=== PATIENT | female | born 1945 | race Asian ===

== ENCOUNTER 2018-05-06 14:59 | Inpatient (IN) | payer OTHER ==
--- NOTE | 2018-05-06 15:49 | PDOC ---
History of Present Illness - General Chief Complaint: Cold Symptoms Stated Complaint: FEVER Time Seen by Provider: 05/06/18 15:32 History Source: Patient Exam Limitations: No Limitations - History of Present Illness Timing/Duration: unsure Associated Symptoms: reports: cough, loss of appetite, malaise. denies: chest pain, diaphoresis, fever/chills, headaches, nausea/vomiting, shortness of breath Past History - Travel Traveled outside of the country in the last 30 days: No Close contact w/someone who was outside of country & ill: No - Past Medical History Allergies/Adverse Reactions: Allergies Allergy/AdvReac Type Severity Reaction Status Date / Time sesame seed Allergy Unknown Rash Verified 05/06/18 15:12 Home Medications: Ambulatory Orders Amlodipine Besylate 5 mg PO DAILY 02/26/16 Aspirin [ASA -] 81 mg PO DAILY 02/26/16 Metoprolol Succinate [Toprol XL -] 25 mg PO DAILY 02/26/16 Telmisartan [Micardis] 40 mg PO ASDIR 05/06/18 Anemia: No Asthma: No Cancer: No Cardiac Disorders: No CVA: No COPD: No CHF: No Dementia: No Diabetes: No GI Disorders: No Disorders: No HTN: Yes Hypercholesterolemia: No Liver Disease: No Seizures: No Thyroid Disease: No - Surgical History Abdominal Surgery: No Appendectomy: No Cardiac Surgery: No Cholecystectomy: No Lung Surgery: No Neurologic Surgery: No Orthopedic Surgery: No - Suicide/Smoking/Psychosocial Hx Smoking History: Never smoked Have you smoked in the past 12 months: No Information on smoking cessation initiated: No Hx Alcohol Use: No Drug/Substance Use Hx: No Substance Use Type: None Hx Substance Use Treatment: No Review of Systems - Review of Systems Constitutional: Yes: Chills, Fever HEENTM: Yes: Nose Congestion, Throat Pain. No: Throat Swelling Respiratory: Yes: Cough. No: Orthopnea, Shortness of Breath, Productive cough Cardiac (ROS): No: Chest Pain, Lightheadedness, Palpitations ABD/GI: No: Abdominal Distended, Abd. Pain w/ defecation, Difficulty Swallowing Musculoskeletal: No: Back Pain, Gout, Joint Pain Integumentary: No: Bruising Neurological: Yes: Weakness. No: Headache, Numbness, Paresthesia, Ataxia, Dizziness Psychiatric: No: Stressors, Mood Swings Endocrine: No: Excessive Sweating, Flushing *Physical Exam - Vital Signs Last Vital Signs Temp Pulse Resp BP Pulse Ox 101.5 F H 100 H 16 121/84 100 05/06/18 15:10 05/06/18 15:10 05/06/18 15:10 05/06/18 15:10 05/06/18 15:10 - Physical Exam General Appearance: Yes: Other (appear weak) Neck: positive: Supple Respiratory/Chest: positive: Lungs Clear, Normal Breath Sounds Cardiovascular: positive: Regular Rhythm, Regular Rate, S1, S2 Gastrointestinal/Abdominal: positive: Normal Bowel Sounds, Soft Musculoskeletal: positive: Normal Inspection Extremity: positive: Normal Capillary Refill, Normal Inspection Integumentary: positive: Normal Color Neurologic: positive: sales contract administrator II-XII NML intact, Fully Oriented, Alert Medical Decision Making - Medical Decision Making 05/06/18 15:47 Patient is a 72 years old female with history of hypertension hyperlipidemia and diabetes she presents today with cough, chills sore throat and fatigue 3 days. Patient denies any chest pain shortness of breath abdominal pain or any UTI symptoms. Vital signs is stable in the emergency room rapid strep sent urine and urine urinalysis and chest x-ray will be obtained dispo pending 05/06/18 17:36 Patient is febrile in the ER given Tylenol and ibuprofen chest x-ray wet reading looks negative UA with chloride and cocaine. Patient later re-examined patient appears very weak upon ambulation UA test discussed with pt, she later admitted that she was sent by PCP for admission d/t continous fever and + UA she has been on cipro X 3 days with continous fever case signout to HENNA Alvarenga RN notified that pt needs to go to the main ED basic labs sent 05/06/18 17:40 *DC/Admit/Observation/Transfer Diagnosis at time of Disposition: Fatigue Qualifiers: Fatigue type: unspecified Qualified Code(s): R53.83 - Other fatigue - Referrals Referrals: Debbi Dunne MD [Primary Care Provider] - - Patient Instructions - Post Discharge Activity
[2018-05-06 16:20] LABS: URINE APPEARANCE CLEAR; URINE BILIRUBIN NEGATIVE (<2.0 mg/dL); URINE COLOR YELLOW; URINE GLUCOSE (UA) 1+ (NEGATIVE); URINE KETONE NEGATIVE (NEGATIVE); URINE LEUK ESTERASE NEGATIVE (NEGATIVE); URINE NITRITE NEGATIVE (NEGATIVE); URINE UROBILINOGEN NEGATIVE mg/dL (0.2-1.0)
[2018-05-06 16:28] LABS: URINE PROTEIN 1+ (NEGATIVE)
[2018-05-06 16:30] LABS: EPI CELLS RARE /HPF (FEW)
[2018-05-06] MEDS ORDERED: ACETAMINOPHEN 325 MG TABLET (FP) PO ONE (17:27)
[2018-05-06] MEDS ORDERED: IBUPROFEN 600 MG TABLET (FP) PO ONE ×2 (17:27→17:30)
[2018-05-06] MEDS ORDERED: ACETAMINOPHEN 325 MG TABLET (FP) ONE (17:32)
[2018-05-06 17:58] LABS: HEMATOCRIT 32.8 % (32.4-45.2); HEMOGLOBIN 11.6 GM/dL (10.7-15.3); MCH 29.4 pg (25.7-33.7); MCHC 35.4 g/dl (32.0-36.0); RBC 3.95 M/mm3 (3.60-5.2); RDW 15.1 % (11.6-15.6); WHITE BLOOD COUNT 4.3 K/mm3 (4.0-10.0)
[2018-05-06 18:28] LABS: ANION GAP 8 MMOL/L (8-16); BLOOD UREA NITROGEN 11 mg/dL (7-18); CALCIUM 7.5 mg/dL (8.5-10.1); CHLORIDE 91 mmol/L (98-107); CO2 26 mmol/L (21-32); CREATININE 0.8 mg/dL (0.55-1.02); GLUCOSE,RANDOM 135 mg/dL (74-106); POTASSIUM 3.9 mmol/L (3.5-5.1); SODIUM 125 mmol/L (136-145)
--- NOTE | 2018-05-06 18:32 | PDOC ---
History of Present Illness - General Chief Complaint: Cold Symptoms Stated Complaint: FEVER Time Seen by Provider: 05/06/18 15:32 History Source: Patient Exam Limitations: No Limitations - History of Present Illness Initial Comments: CHIEF COMPLAINT: 72 y/o febrile, tachycardic female c/o fever, weakness, sore throat and decreased appetite for 4 days. HISTORY OF PRESENT ILLNESS: Patient was seen by Dr. Bains 2 days ago and started on Cipro for a UTI. Patient states she still hasn't been able to eat and feels weak. She denies cough, runny nose, CARLIN, n/v/d, CP, SOB, abd pain, back pain. She has been taking tylenol for the fever with last dose this morning. PCP is Dr. Bains Vital signs on arrival are notable for pulse of 100 secondary to temp of 101.5. REVIEW OF SYSTEMS: GENERAL/CONSTITUTIONAL: +fever. +weakness HEAD, EYES, EARS, NOSE AND THROAT: +sore throat. No change in vision. No ear pain or discharge. CARDIOVASCULAR: No chest pain or shortness of breath. RESPIRATORY: No cough, wheezing, or hemoptysis. GASTROINTESTINAL: No abd pain, nausea, vomiting, diarrhea. GENITOURINARY: No dysuria, frequency, or change in urination. MUSCULOSKELETAL: No joint or muscle swelling or pain. No neck or back pain. SKIN: No rash or easy bruising. NEUROLOGIC: No headache, vertigo, loss of consciousness, or loss of sensation. PHYSICAL EXAM: GENERAL: The patient is awake, alert, and fully oriented, in no acute distress. HEAD: Normal with no signs of trauma. ENT: Pupils equal, round and reactive to light, extraocular movements intact, sclera anicteric, conjunctiva clear. Dry, cracked lips. Mildly dry mucous membranes. LUNGS: Clear to auscultation bilaterally. Normal excursion. No respiratory distress or use of accessory muscles. CV: RRR, S1/S2, no MRG. Cap refill < 2 sec. ABDOMEN: Soft, non-distended, non-tender even to deep palpation, no hepatomegaly or splenomegaly, no masses. EXTREMITIES: Normal range of motion, no edema. NEUROLOGICAL: Normal speech, normal gait. CN II-XII grossly intact. SKIN: Warm, dry, normal turgor, no rashes or lesions noted. Past History - Past Medical History Allergies/Adverse Reactions: Allergies Allergy/AdvReac Type Severity Reaction Status Date / Time sesame seed Allergy Unknown Rash Verified 05/06/18 15:12 Home Medications: Ambulatory Orders Amlodipine Besylate 5 mg PO DAILY 02/26/16 Aspirin [ASA -] 81 mg PO DAILY 02/26/16 Metoprolol Succinate [Toprol XL -] 25 mg PO DAILY 02/26/16 Telmisartan [Micardis] 40 mg PO ASDIR 05/06/18 Anemia: No Asthma: No Cancer: No Cardiac Disorders: No CVA: No COPD: No CHF: No Dementia: No Diabetes: No GI Disorders: No Disorders: No HTN: Yes Hypercholesterolemia: No Liver Disease: No Seizures: No Thyroid Disease: No - Surgical History Abdominal Surgery: No Appendectomy: No Cardiac Surgery: No Cholecystectomy: No Lung Surgery: No Neurologic Surgery: No Orthopedic Surgery: No - Suicide/Smoking/Psychosocial Hx Smoking History: Never smoked Have you smoked in the past 12 months: No Information on smoking cessation initiated: No Hx Alcohol Use: No Drug/Substance Use Hx: No Substance Use Type: None Hx Substance Use Treatment: No *Physical Exam - Vital Signs Last Vital Signs Temp Pulse Resp BP Pulse Ox 101.5 F H 100 H 16 121/84 100 05/06/18 15:10 05/06/18 15:10 05/06/18 15:10 05/06/18 15:10 05/06/18 15:10 ED Treatment Course - LABORATORY CBC & Chemistry Diagram: 05/06/18 17:45 05/06/18 17:45 - ADDITIONAL ORDERS Additional order review: Laboratory Results 05/06/18 15:50 Urine Color Yellow Urine Appearance Clear Urine pH 5.0 Ur Specific [place] 1.011 Urine Protein 1+ H Urine Glucose (UA) 1+ H Urine Ketones Negative Urine Blood 2+ H Urine Nitrite Negative Urine Bilirubin Negative Urine Urobilinogen Negative Ur Leukocyte Esterase Negative Urine WBC (Auto) 2 Urine RBC (Auto) 2 Ur Epithelial Cells Rare 05/06/18 15:46 Group A Strep Rapid Antigen - Final Throat 05/06/18 17:45 RBC 3.95 MCV 83.0 MCHC 35.4 RDW 15.1 - Medications Given in the ED: ED Medications Discontinued Medications Generic Name Dose Route Start Last Admin Trade Name Freq PRN Reason Stop Dose Admin Acetaminophen 650 mg 05/06/18 17:27 05/06/18 17:33 Tylenol - PO 05/06/18 17:28 650 mg ONCE ONE Administration Ibuprofen 600 mg 05/06/18 17:27 05/06/18 17:33 Motrin - PO 05/06/18 17:28 600 mg ONCE ONE Administration Medical Decision Making - Medical Decision Making A/P: 72 y/o febrile female with weakness, fever, decreased appetite x 4 days, despite starting CIpro for a UTI 2 days ago. Plan is as follows: 1. Labs 2. UA/culture 3. Blood cultures 4. CXR 5. Throat culture 6. PO tylenol and motrin Throat culture -negative CXR IMPRESSION: (wet read) No change since prior. Patient is hyponatremic. Started on NS. Otherwise labs ok. UA no UTI. Spoke with Dr. Bains and discussed plan. She would like her admitted for hyponatremia, UTI, weakness, poor appetite. Wants 1st dose of IV levaquin. Patient made aware of plan. *DC/Admit/Observation/Transfer Diagnosis at time of Disposition: Hyponatremia, Weakness, Poor appetite Fatigue Qualifiers: Fatigue type: unspecified Qualified Code(s): R53.83 - Other fatigue UTI (urinary tract infection) Qualifiers: Urinary tract infection type: acute cystitis Hematuria presence: with hematuria Qualified Code(s): N30.01 - Acute cystitis with hematuria - Discharge Dispostion Condition at time of disposition: Stable Decision to Admit order: Yes - Referrals Referrals: Debbi Dunne MD [Primary Care Provider] - - Patient Instructions - Post Discharge Activity
[2018-05-06 18:43] LABS: PLATELET COUNT 81 K/MM3 (134-434)
[2018-05-06] MEDS ORDERED: SODIUM CHLORIDE 1,000 ML IV STA (18:43)
[2018-05-06 21:58] LABS: ALBUMIN 2.9 g/dl (3.4-5.0); BILIRUBIN,DIRECT 0.4 mg/dL (0.0-0.2); BILIRUBIN,TOTAL 1.2 mg/dL (0.2-1.0); TOT PROT 7.5 g/dl (6.4-8.2)
[2018-05-06] MEDS: SODIUM CHLORIDE 1,000 ML IV SCH (23:53)
[2018-05-07] MEDS: metFORMIN HCL 500 MG TABLET (FP) PO SCH (06:34)
[2018-05-07 07:02] LABS: MCH 28.6 pg (25.7-33.7); MCHC 34.4 g/dl (32.0-36.0); MEAN CELL VOLUME 82.9 fl (80-96); MEAN PLT VOLUME 9.3 fl (7.5-11.1); PLATELET COUNT 69 K/MM3 (134-434); WHITE BLOOD COUNT 3.9 K/mm3 (4.0-10.0)
[2018-05-07 07:37] LABS: ALBUMIN 2.4 g/dl (3.4-5.0); ANION GAP 11 MMOL/L (8-16); BLOOD UREA NITROGEN 9 mg/dL (7-18); CALCIUM 7.1 mg/dL (8.5-10.1); CHLORIDE 100 mmol/L (98-107); CO2 21 mmol/L (21-32); GLUCOSE,RANDOM 153 mg/dL (74-106); POTASSIUM 3.1 mmol/L (3.5-5.1); SGOT/AST 67 U/L (15-37); SGPT/ALT 65 U/L (12-78); SODIUM 132 mmol/L (136-145)
[2018-05-07 07:40] LABS: ALK PHOS 59 U/L (45-117); BILIRUBIN,TOTAL 1.1 mg/dL (0.2-1.0); CREATININE 0.4 mg/dL (0.55-1.02)
[2018-05-07] MEDS: amLODIPine BESYLATE 5 MG TABLET (FP) PO SCH (09:33)
[2018-05-07] MEDS: VALSARTAN 160 MG TABLET (UD) PO SCH (09:33)
[2018-05-07] MEDS: HYDROCHLOROTHIAZIDE 12.5 MG CAPSULE (FP) PO SCH (09:33)
[2018-05-07] MEDS ORDERED: POTASSIUM CHLORIDE TABS 20 MEQ TABLET.ER (FP) PO ONE (10:38)
[2018-05-07] MEDS: SODIUM CHLORIDE 1,000 ML IV SCH (11:40)
--- NOTE | 2018-05-07 12:20 | PN ---
Progress Note, Physician Chief Complaint: Pt lying in bed,Afebrile No vomiting,tiredness present Hypokalemia hyponatremia improved Elevated LFT,low Platelet Gi consul - Current Medication List Current Medications: Active Medications Acetaminophen (Tylenol -) 650 mg PO Q6H PRN PRN Reason: FEVER Amlodipine Besylate (Norvasc -) 5 mg PO DAILY [facility] Last Admin: 05/07/18 09:33 Dose: 5 mg Atorvastatin Calcium (Lipitor -) 10 mg PO HS [facility] Calcium Carbonate (Os-Jah 500mg -) 500 mg PO DAILY [facility] Hydrochlorothiazide (Hctz -) 12.5 mg PO DAILY [facility] Last Admin: 05/07/18 09:33 Dose: 12.5 mg Sodium Chloride (Normal Saline -) 1,000 mls @ 75 mls/hr IV ASDIR [facility] Last Admin: 05/07/18 11:40 Dose: 75 mls/hr Metformin HCl (Glucophage -) 500 mg PO 0700 [facility] Last Admin: 05/07/18 06:34 Dose: 500 mg Metoprolol Tartrate (Lopressor -) 50 mg PO HS [facility] Valsartan (Diovan -) 160 mg PO DAILY [facility] Last Admin: 05/07/18 09:33 Dose: 160 mg - Objective Vital Signs: Vital Signs Temperature 99.3 F 05/07/18 09:30 Pulse Rate 105 H 05/07/18 09:30 Respiratory Rate 18 05/07/18 09:30 Blood Pressure 145/69 05/07/18 09:30 O2 Sat by Pulse Oximetry (%) 99 05/07/18 01:20 Constitutional: Yes: No Distress Eyes: Yes: Conjunctiva Clear HENT: Yes: Atraumatic Neck: Yes: Supple, Trachea Midline Cardiovascular: Yes: Regular Rate and Rhythm Respiratory: Yes: Regular, CTA Bilaterally Gastrointestinal: Yes: Normal Bowel Sounds, Soft Musculoskeletal: Yes: WNL Extremities: Yes: WNL Edema: No Peripheral Pulses WNL: No Neurological: Yes: WNL ...Motor Strength: WNL Psychiatric: Yes: WNL Labs: CBC, BMP 05/07/18 06:30 05/07/18 06:30 - ....Imaging Chest X-ray: Report Reviewed Assessment/Plan UTI POOR appetite, and po intake Elevated LFT,low platelet Fatigue, generalised weakness PLAN Continue IV antibiotics GI consult Continue Metformin,metoprolol and amlodipine K suppliment and Calcium suppliment will monitor labs
--- NOTE | 2018-05-07 12:53 | HP ---
DATE OF DICTATION: 05/07/2018 The patient is a 72-year-old female with a history of hypertension, hyperlipidemia, diabetes, presented to the emergency room with a history of persistent fever, lack of appetite, poor p.o. intake, mild lower abdominal pain. Patient was seen in the office with a history of generalized weakness, fatigue, poor p.o. intake, and mild fever, mild sore throat. The poor p.o. intake and fatigue started almost 2 weeks ago and patient feels tired. Patient had blood work and urine culture done as an outpatient for a regular checkup. It found the patient had hyponatremia and potassium was 3.2 and urine was positive for infection and started on Cipro 500 mg p.o. b.i.d. Even after taking the antibiotics, patient was spiking fever, she cannot tolerate the fluid, and patient has lack of appetite, generalized body aches, tiredness, so came to the emergency room for further evaluation. Past medical history is significant for hypertension, diabetes, hyperlipidemia. Patient is allergic to SESAME SEED. MEDICATION: Amlodipine besylate 5 mg daily, aspirin, metoprolol succinate, Toprol XL 25 mg daily, Micardis 40 mg p.o. daily, and metformin 500 mg p.o. b.i.d. Patient lives with the family. PAST MEDICAL HISTORY: As mentioned before. PERSONAL HISTORY: Patient never smoked, no alcohol, no drugs. REVIEW OF SYSTEMS: Constitutional: Patient had chills and fever, generalized weakness, fatigue, poor p.o. intake. Head and Neck: Nasal congestion. No pharyngeal erythema. Respiratory: Patient complains of cough. No orthopnea. No shortness of breath. Productive cough present. Cardiovascular: No chest pain, lightheadedness, or palpitation. History of hypertension present. Gastrointestinal: Patient had poor p.o. intake, poor appetite. No constipation, no diarrhea. Genitourinary: Mild lower abdomen pain. No burning sensation. Musculoskeletal: No back pain or joint pain. Neurological: No motor or sensory deficit. No gait disturbance. No dizziness. Endocrine: Patient is known diabetic. PHYSICAL EXAMINATION IN EMERGENCY ROOM: Vital Signs: Temperature was 101.5, pulse rate 100, respiration 16, blood pressure 121/84, pulse oximetry 100%. General: Patient appears weak. Neck: Supple. No JVD. Mild erythema. Chest: Normal breath sound. No rhonchi or wheezing. Cardiovascular: 1st and 2nd sound normal. Abdomen: Soft. No tenderness, no distention. Bowel sounds present. No mass palpable. Musculoskeletal: Full range of movement. Extremities: No edema. Full range of movement. Skin: Normal. Neurological: Patient alert, oriented x3. Cranial nerves 2-12 normal. No apparent motor or sensory deficit. Regarding the labs, in the emergency room, WBC 4.3, hemoglobin 11.6, hematocrit 32.6, platelets 281. Chemistry: Sodium 125, potassium 3.9, chloride 91, bicarbonate 26, BUN 11, creatinine 0.8, glucose 135, calcium 7.5, total bilirubin 1.2, AST 86, ALT 82, alkaline phosphatase 72, albumin 2.9. Urine shows protein 1+, glucose 1+, ketones negative, urine blood 2+, RBC 2, WBC 2. Microbiology: Blood culture pending. Throat culture negative for beta-hemolytic streptococcus. Influenza type A and B negative. Urine culture pending. Chest x-ray negative. Patient was given IV fluid, Motrin and Tylenol in the emergency room, and IV Levaquin started as per patient was not responding to the p.o. antibiotics. Patient admitted in the floor with admitting diagnosis of urinary tract infection, poor p.o. intake, generalized weakness, hyponatremia, and fever. PLAN: Levaquin 500 mg IV daily, continue the home medications, blood culture. Will monitor the potassium and sodium. GI consult to further evaluate the liver enzymes and poor p.o. intake and lack of appetite. IV fluids. Will closely monitor the electrolytes. Patient is stable on the floor. Moira [id number]
[2018-05-07] MEDS: PANTOPRAZOLE 20 MG TABLET (FP) PO SCH (15:32)
--- NOTE | 2018-05-07 20:51 | CON.GI ---
Consult Consult Specialty:: Gastroenterology Referred by:: Dr Dunne Reason for Consultation:: Abnormal LFTs - History of Present Illness Chief Complaint: Unable to eat, nausea, epigastric pain, cough and sore throat History of Present Illness: 72F is admitted because of an inablity to eat for the past few days due to nausea and a dull mild epigastric discomfort. No vomiting. No diarrhea. She has been constipated. She reminds me that she had a colonoscopy with me 5 years ado which revealed only diverticulosis. 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 - History Source History Provided By: Patient Limitations to Obtaining History: No Limitations - Past Medical History Cardio/Vascular: Yes: HTN, Hyperlipdemia, Mitral Insufficiency, Pulmonary Hypertension Gastrointestinal: Yes: Diverticulosis Endocrine: Yes: Diabetes Mellitus - Past Surgical History Past Surgical History: Yes: Cataract Removal (bilateral), - Alcohol/Substance Use Hx Alcohol Use: No History of Substance Use: reports: None - Smoking History Smoking history: Never smoked Have you smoked in the past 12 months: No - Social History Usual Living Arrangement: With Spouse ADL: Independent Occupation: retired RN Place of : Other ([employer]) Came to [place] (year): age 34 History of Recent Travel: No Home Medications - Allergies Allergies/Adverse Reactions: Allergies Allergy/AdvReac Type Severity Reaction Status Date / Time sesame seed Allergy Unknown Rash Verified 05/06/18 15:12 - Home Medications Home Medications: Ambulatory Orders Amlodipine Besylate 5 mg PO DAILY 02/26/16 Aspirin [ASA -] 81 mg PO DAILY 02/26/16 Metoprolol Succinate [Toprol XL -] 25 mg PO DAILY 02/26/16 Telmisartan [Micardis] 40 mg PO ASDIR 05/06/18 Review of Systems - Review of Systems Constitutional: reports: Fever, Loss of Appetite, Weakness Eyes: reports: No Symptoms HENT: reports: Nasal Congestion, Throat Pain Respiratory: reports: Cough Gastrointestinal: reports: Abdominal Pain, Constipation, Nausea Genitourinary: reports: No Symptoms Physical Exam-GI Vital Signs: Vital Signs Temperature 99.4 F 05/07/18 18:00 Pulse Rate 124 H 05/07/18 18:00 Respiratory Rate 19 05/07/18 18:00 Blood Pressure 151/85 05/07/18 18:00 O2 Sat by Pulse Oximetry (%) 98 05/07/18 09:00 CBC,CMP WBC 3.9 K/mm3 (4.0-10.0) L 05/07/18 06:30 RBC 3.50 M/mm3 (3.60-5.2) L 05/07/18 06:30 Hgb 10.0 GM/dL (10.7-15.3) L 05/07/18 06:30 Hct 29.0 % (32.4-45.2) L 05/07/18 06:30 MCV 82.9 fl (80-96) 05/07/18 06:30 MCH 28.6 pg (25.7-33.7) 05/07/18 06:30 MCHC 34.4 g/dl (32.0-36.0) 05/07/18 06:30 RDW 15.0 % (11.6-15.6) 05/07/18 06:30 Plt Count 69 K/MM3 (134-434) L 05/07/18 06:30 MPV 9.3 fl (7.5-11.1) 05/07/18 06:30 Platelet Comment 05/06/18 17:45 Sodium 132 mmol/L (136-145) L 05/07/18 06:30 Potassium 3.1 mmol/L (3.5-5.1) L 05/07/18 06:30 Chloride 100 mmol/L (98-107) 05/07/18 06:30 Carbon Dioxide 21 mmol/L (21-32) 05/07/18 06:30 Anion Gap 11 MMOL/L (8-16) 05/07/18 06:30 BUN 9 mg/dL (7-18) 05/07/18 06:30 Creatinine 0.4 mg/dL (0.55-1.02) L 05/07/18 06:30 Creat Clearance w eGFR > 60 (>60) 05/07/18 06:30 POC Glucometer 169 UNITS (80-120) 05/07/18 06:29 Random Glucose 153 mg/dL (74-106) H 05/07/18 06:30 Calcium 7.1 mg/dL (8.5-10.1) L 05/07/18 06:30 Total Bilirubin 1.1 mg/dL (0.2-1.0) H 05/07/18 06:30 Direct Bilirubin 0.4 mg/dL (0.0-0.2) H 05/06/18 21:30 AST 67 U/L (15-37) H 05/07/18 06:30 ALT 65 U/L (12-78) 05/07/18 06:30 Alkaline Phosphatase 59 U/L (45-117) D 05/07/18 06:30 Total Protein 6.0 g/dl (6.4-8.2) L 05/07/18 06:30 Albumin 2.4 g/dl (3.4-5.0) L 05/07/18 06:30 Current Medications Generic Name Dose Route Start Last Admin Trade Name Freq PRN Reason Stop Dose Admin Acetaminophen 650 mg 05/06/18 23:39 Tylenol - PO Q6H PRN FEVER Amlodipine Besylate 5 mg 05/07/18 10:00 05/07/18 09:33 Norvasc - PO 5 mg DAILY [facility] Administration Atorvastatin Calcium 10 mg 05/07/18 22:00 Lipitor - PO HS [facility] Calcium Carbonate 500 mg 05/08/18 10:00 Os-Jah 500mg - PO DAILY [facility] Hydrochlorothiazide 12.5 mg 05/07/18 10:00 05/07/18 09:33 Hctz - PO 12.5 mg DAILY [facility] Administration Sodium Chloride 1,000 mls @ 75 mls/hr 05/06/18 23:45 05/07/18 11:40 Normal Saline - IV 75 mls/hr ASDIR [facility] Administration Levofloxacin 500 mg in 100 mls @ 100 mls/hr 05/07/18 12:45 05/07/18 13:33 Levaquin 500 Mg Premixed Ivpb - IVPB 100 mls/hr DAILY [facility] Administration Metformin HCl 500 mg 05/07/18 07:00 05/07/18 06:34 Glucophage - PO 500 mg 0700 [facility] Administration Metoprolol Tartrate 50 mg 05/07/18 22:00 Lopressor - PO HS [facility] Pantoprazole Sodium 20 mg 05/07/18 15:30 05/07/18 15:32 Protonix - PO Not Given DAILY [facility] Valsartan 160 mg 05/07/18 10:00 05/07/18 09:33 Diovan - PO 160 mg DAILY [facility] Administration Constitutional: Yes: No Distress Eyes: Yes: Conjunctiva Clear HENT: Yes: Atraumatic Neck: Yes: Trachea Midline Cardiovascular: Yes: Regular Rate and Rhythm Respiratory: Yes: CTA Bilaterally Gastrointestinal Inspection: Yes: Scars (healed [place]) ...Auscultate: Yes: Normoactive Bowel Sounds ...Palpate: Yes: Soft, Other (nontender) ...Percussion: Yes: Tympanitic ...Rectal Exam: Yes: Deferred Edema: No Peripheral Pulses WNL: Yes Neurological: Yes: Alert, Oriented Labs: CBC, BMP 05/07/18 06:30 05/07/18 06:30 Laboratory Tests 05/06/18 05/07/18 21:30 06:30 Direct Bilirubin 0.4 H AST 86 H 67 H ALT 82 H 65 Alkaline Phosphatase 59 D Albumin 2.4 L Problem List - Problems (1) Abnormal LFTs (liver function tests) Assessment/Plan: I suspect that the mild transaminase elevations reflect a nonspecific reaction to an underlying viral URI or perhaps UTI but will order a sonogram and screeen for primary liver diseases. Code(s): R94.5 - ABNORMAL RESULTS OF LIVER FUNCTION STUDIES (2) Abdominal pain Assessment/Plan: I suspect that her dyspepsia and nausea with inability to eat reflect a component of diabetic gastroparesis and will start Reglan. This could alternatively be gastroparesis that is associated with viral infections. She' ll need IV support in the interim. Code(s): R10.9 - UNSPECIFIED ABDOMINAL PAIN (3) Diverticula of colon Code(s): K57.30 - DVRTCLOS OF LG INT W/O PERFORATION OR ABSCESS W/O BLEEDING (4) Diabetes 1.5, managed as type 2 Code(s): E10.9 - TYPE 1 DIABETES MELLITUS WITHOUT COMPLICATIONS (5) Hypertension Code(s): I10 - ESSENTIAL (PRIMARY) HYPERTENSION (6) Hyperlipidemia associated with type 2 diabetes mellitus Code(s): E11.69 - TYPE 2 DIABETES MELLITUS WITH OTHER SPECIFIED COMPLICATION; E78.5 - HYPERLIPIDEMIA, UNSPECIFIED (7) Nausea Code(s): R11.0 - NAUSEA (8) Poor appetite Code(s): R63.0 - ANOREXIA Assessment/Plan Poor oral intake due to diabetic or viral induced gastroparesis IV Reglan and fluids Liver and GB sonogram and other liver evaluations
[2018-05-07] MEDS: METOPROLOL TARTRATE 50 MG TABLET (FP) PO SCH (22:08)
[2018-05-07] MEDS: ATORVASTATIN CA 10 MG TABLET (FP) PO SCH (22:08)
[2018-05-08] MEDS: SODIUM CHLORIDE 1,000 ML IV SCH ×2 (02:24→19:27)
[2018-05-08 08:22] LABS: BASO % 1.1 % (0-2.0); EOS % 0.3 % (0-4.5); HEMATOCRIT 28.9 % (32.4-45.2); LYMPH % 24.4 % (8-40); MCH 28.5 pg (25.7-33.7); MCHC 34.5 g/dl (32.0-36.0); MEAN CELL VOLUME 82.5 fl (80-96); MEAN PLT VOLUME 8.7 fl (7.5-11.1); MONO % 25.8 % (3.8-10.2); NEUT % 48.4 % (42.8-82.8); PLATELET COUNT 77 K/MM3 (134-434); RBC 3.51 M/mm3 (3.60-5.2); RDW 15.1 % (11.6-15.6); WHITE BLOOD COUNT 4.5 K/mm3 (4.0-10.0)
[2018-05-08 08:32] LABS: INR 1.36 (0.83-1.09); PROTHROMBIN TIME (PATIENT) 15.4 SEC (9.7-13.0)
[2018-05-08 08:44] LABS: ALBUMIN 2.3 g/dl (3.4-5.0); ANION GAP 10 MMOL/L (8-16); BLOOD UREA NITROGEN 9 mg/dL (7-18); CHLORIDE 93 mmol/L (98-107); CO2 24 mmol/L (21-32); CREATININE 0.6 mg/dL (0.55-1.02); GLUCOSE,RANDOM 113 mg/dL (74-106); MAGNESIUM 1.5 mg/dL (1.8-2.4); POTASSIUM 3.7 mmol/L (3.5-5.1); SGOT/AST 70 U/L (15-37); SGPT/ALT 56 U/L (12-78); SODIUM 127 mmol/L (136-145)
[2018-05-08 08:46] LABS: ALK PHOS 64 U/L (45-117); BILIRUBIN,TOTAL 1.3 mg/dL (0.2-1.0); TOT PROT 6.4 g/dl (6.4-8.2)
--- NOTE | 2018-05-08 09:46 | PN ---
Progress Note, Physician Chief Complaint: Pt lying in bed,Afebrile No vomiting,tiredness present hyponatremia improving Elevated LFT,low Platelet Gi consul appreciated Abdominal ultrasound no gall stones,mild fatty liver - Current Medication List Current Medications: Active Medications Acetaminophen (Tylenol -) 650 mg PO Q6H PRN PRN Reason: FEVER Amlodipine Besylate (Norvasc -) 5 mg PO DAILY [facility] Last Admin: 05/07/18 09:33 Dose: 5 mg Atorvastatin Calcium (Lipitor -) 10 mg PO HS [facility] Last Admin: 05/07/18 22:08 Dose: 10 mg Calcium Carbonate (Os-Jah 500mg -) 500 mg PO DAILY [facility] Hydrochlorothiazide (Hctz -) 12.5 mg PO DAILY [facility] Last Admin: 05/07/18 09:33 Dose: 12.5 mg Sodium Chloride (Normal Saline -) 1,000 mls @ 75 mls/hr IV ASDIR [facility] Last Admin: 05/08/18 02:24 Dose: 75 mls/hr Levofloxacin (Levaquin 500 Mg Premixed Ivpb -) 500 mg in 100 mls @ 100 mls/hr IVPB DAILY [facility] Last Admin: 05/07/18 13:33 Dose: 100 mls/hr Metformin HCl (Glucophage -) 500 mg PO 0700 [facility] Last Admin: 05/07/18 06:34 Dose: 500 mg Metoclopramide HCl (Reglan Injection -) 10 mg IVPUSH Q8H PRN PRN Reason: NAUSEA AND/OR VOMITING Metoprolol Tartrate (Lopressor -) 50 mg PO [facility] Last Admin: 05/07/18 22:08 Dose: 50 mg Pantoprazole Sodium (Protonix -) 20 mg PO DAILY [facility] Last Admin: 05/07/18 15:32 Dose: Not Given Valsartan (Diovan -) 160 mg PO DAILY [facility] Last Admin: 05/07/18 09:33 Dose: 160 mg - Objective Vital Signs: Vital Signs Temperature 99.8 F H 05/08/18 06:00 Pulse Rate 97 H 05/08/18 06:00 Respiratory Rate 20 05/08/18 06:00 Blood Pressure 125/66 05/08/18 06:00 O2 Sat by Pulse Oximetry (%) 98 05/07/18 21:00 Constitutional: Yes: No Distress Eyes: Yes: Conjunctiva Clear HENT: Yes: Atraumatic Neck: Yes: Supple, Trachea Midline Cardiovascular: Yes: Regular Rate and Rhythm Respiratory: Yes: Regular, CTA Bilaterally Gastrointestinal: Yes: Normal Bowel Sounds, Soft Musculoskeletal: Yes: WNL Extremities: Yes: WNL Edema: No Peripheral Pulses WNL: Yes Neurological: Yes: WNL, Alert, Oriented ...Motor Strength: WNL Psychiatric: Yes: WNL, Alert Labs: CBC, BMP 05/08/18 08:00 05/08/18 08:00 INR, PTT INR 1.36 (0.83-1.09) H 05/08/18 08:00 - ....Imaging Ultrasound: Report Reviewed EKG: Report Reviewed Assessment/Plan UTI POOR appetite, and po intake Elevated LFT,low platelet Fatigue, generalised weakness gastroparesis PLAN Continue IV antibiotics GI f/u Continue Metformin,metoprolol and amlodipine Calcium, mg suppliment will monitor labs
[2018-05-08] MEDS: ACETAMINOPHEN 325 MG TABLET (FP) PO PRN (09:47)
[2018-05-08] MEDS: VALSARTAN 160 MG TABLET (UD) PO SCH (09:47)
[2018-05-08] MEDS: PANTOPRAZOLE 20 MG TABLET (FP) PO SCH (09:47)
[2018-05-08] MEDS: amLODIPine BESYLATE 5 MG TABLET (FP) PO SCH (09:47)
[2018-05-08] MEDS: CALCIUM (OYSTER SHELL) 500 MG TABLET (FP) PO SCH (09:47)
[2018-05-08] MEDS: metFORMIN HCL 500 MG TABLET (FP) PO SCH (10:00)
[2018-05-08] MEDS ORDERED: MAGNESIUM OXIDE 400 MG TABLET (FP) PO ONE (10:00)
[2018-05-08] MEDS ORDERED: PANTOPRAZOLE 20 MG TABLET (FP) PO SCH (10:00)
[2018-05-08] MEDS: HYDROCHLOROTHIAZIDE 12.5 MG CAPSULE (FP) PO SCH (10:01)
--- NOTE | 2018-05-08 10:32 | EKG ---
Test Reason : Blood Pressure : / mmHG Vent. Rate : 105 BPM Atrial Rate : 105 BPM P-R Int : 132 ms QRS Dur : 064 ms QT Int : 318 ms P-R-T Axes : 043 040 027 degrees QTc Int : 420 ms SINUS TACHYCARDIA OTHERWISE NORMAL ECG WHEN COMPARED WITH ECG OF 09-APR-2006 15:36, VENT. RATE HAS INCREASED BY 50 BPM Confirmed by ADIS GALLEGO MD ([id number]) on 05/08/2018 10:32:04 AM Referred By: Radha CR Confirmed By:ADIS GALLEGO MD
[2018-05-08 11:59] LABS: ANISOCYTOSIS 1+; MACROCYTOSIS 0; PLATELET ESTIMATE DECREASED
--- NOTE | 2018-05-08 12:39 | CON.CARD ---
Consult Consult Specialty:: Cardiology Referred by:: Debbi Dunne MD Reason for Consultation:: Labile hypertension - History of Present Illness Chief Complaint: Anorexia, nausea, heartburn History of Present Illness: 72F h/o chest pain syndrome with MPI negative for ischemia, diastolic dysfunction, labile HTN, Type 2 DM, hyperlipidemia admitted for anorexia, nausea and dull mild epigastric discomfort without vomiting, diarrhea, chest pain, near or true syncope, palpitations, orthopnea, PND or LE edema. She has been constipated. Tolerating diet with improved heartburn symptoms. Last saw Dr. Ho February 04, 2017. - History Source History Provided By: Patient Limitations to Obtaining History: No Limitations - Past Medical History Cardio/Vascular: Yes: HTN, Hyperlipdemia, Mitral Insufficiency, Pulmonary Hypertension Gastrointestinal: Yes: Diverticulosis Endocrine: Yes: Diabetes Mellitus - Past Surgical History Past Surgical History: Yes: Cataract Removal (bilateral), - Alcohol/Substance Use Hx Alcohol Use: No History of Substance Use: reports: None - Smoking History Smoking history: Never smoked Have you smoked in the past 12 months: No - Social History Usual Living Arrangement: With Spouse ADL: Independent Occupation: retired RN History of Recent Travel: No Home Medications - Allergies Allergies/Adverse Reactions: Allergies Allergy/AdvReac Type Severity Reaction Status Date / Time sesame seed Allergy Unknown Rash Verified 05/06/18 15:12 - Home Medications Home Medications: Ambulatory Orders Amlodipine Besylate 5 mg PO DAILY 02/26/16 Aspirin [ASA -] 81 mg PO DAILY 02/26/16 Metoprolol Succinate [Toprol XL -] 25 mg PO DAILY 02/26/16 Telmisartan [Micardis] 40 mg PO ASDIR 05/06/18 Review of Systems - Review of Systems Constitutional: reports: Loss of Appetite Gastrointestinal: reports: Abdominal Pain Vital Signs: Vital Signs Temperature 101.7 F H 05/08/18 09:33 Pulse Rate 98 H 05/08/18 09:33 Respiratory Rate 20 05/08/18 09:33 Blood Pressure 133/55 05/08/18 09:33 O2 Sat by Pulse Oximetry (%) 98 05/07/18 21:00 Constitutional: Yes: No Distress, Calm Neck: Yes: Supple Respiratory: Yes: Regular, CTA Bilaterally Gastrointestinal: Yes: Soft, Hypoactive Bowel Sounds Cardiovascular: Yes: Regular Rate and Rhythm JVD: No Carotid Bruit: No Heart Sounds: Yes: S1, S2 Murmur: Yes: Systolic Murmur, Grade 1 Edema: No - Other Data Labs, Other Data: CBC, BMP 05/08/18 08:00 05/08/18 08:00 INR, PTT INR 1.36 (0.83-1.09) H 05/08/18 08:00 Ejection Fraction %: LVEF > or = 40 % Imaging - Results Chest X-ray: Report Reviewed (NAD) Ultrasound: Report Reviewed (Abd U/S: Fatty infiltration, no gallstones) Problem List - Problems (1) Diastolic dysfunction Code(s): I51.9 - HEART DISEASE, UNSPECIFIED (2) Abnormal LFTs (liver function tests) Code(s): R94.5 - ABNORMAL RESULTS OF LIVER FUNCTION STUDIES (3) Fatigue Code(s): R53.83 - OTHER FATIGUE Qualifiers: Fatigue type: unspecified Qualified Code(s): R53.83 - Other fatigue (4) Hyperlipidemia associated with type 2 diabetes mellitus Code(s): E11.69 - TYPE 2 DIABETES MELLITUS WITH OTHER SPECIFIED COMPLICATION; E78.5 - HYPERLIPIDEMIA, UNSPECIFIED (5) Hypertension Code(s): I10 - ESSENTIAL (PRIMARY) HYPERTENSION Qualifiers: Hypertension type: essential hypertension Qualified Code(s): I10 - Essential (primary) hypertension (6) Poor appetite Code(s): R63.0 - ANOREXIA (7) UTI (urinary tract infection) Code(s): N39.0 - URINARY TRACT INFECTION, SITE NOT SPECIFIED Qualifiers: Urinary tract infection type: acute cystitis Hematuria presence: with hematuria Qualified Code(s): N30.01 - Acute cystitis with hematuria (8) Diabetic gastroparesis Code(s): E11.43 - TYPE 2 DIABETES W DIABETIC AUTONOMIC (POLY)NEUROPATHY; K31.84 - GASTROPARESIS Assessment/Plan MPI December 28, 2016 Mild inferoapical ischemia, LVEF 83% Echo December 28, 2016 Normal LV size and fxn, mild-mod MR, mild TR Holter December 28, 2017: SR with rare supraventricular and ventricular ectopic 1. Dyspepsia and nausea referable to diabetic vs viral gastroparesis 2. UTI 3. Labile HTN 4. Diastolic dysfunction 5. Type 2 DM 6. Hyperlipidemia 7. H/o chest pain syndrome P:1. Complete empiric abx course 2. Placed on Reglan and Protonix with improvement 3. Continue Toprol XL 25 qd, Norvasc 5 qd, Lipitor 10 qd, ASA 81 qd, valsartan 160 qd 4. Thank you for consultative opportunity
[2018-05-08] MEDS: METOCLOPRAMIDE HCL INJECTION 10 MG/2 ML VIAL IVPUSH PRN (17:27)
--- NOTE | 2018-05-08 19:15 | PN ---
GI Progress Note Subjective: GI NOte: Was eating lunch when I saw her earlier today. Told me that she was feeling better. I told her that he sonogram revealed a fatty liver but no masses or stones. Ferritin is elevated but could be acute phase reaction as CRP is also elevated. The other studies are still pending. - Objective Vital Signs: Vital Signs Temperature 98.5 F 05/08/18 19:03 Pulse Rate 139 H 05/08/18 19:03 Respiratory Rate 24 05/08/18 19:03 Blood Pressure 140/80 05/08/18 19:03 O2 Sat by Pulse Oximetry (%) 98 05/07/18 21:00 Laboratory Tests 05/06/18 05/07/18 05/08/18 21:30 06:30 08:00 Ferritin Total Bilirubin 1.2 H 1.1 H 1.3 H AST 70 H ALT 82 H 65 56 Alkaline Phosphatase 72 59 D 64 C-Reactive Protein 05/08/18 08:00 Ferritin 1488.0 H Total Bilirubin AST ALT Alkaline Phosphatase C-Reactive Protein 7.8 H Constitutional: Calm ...Auscultate: Yes: Normoactive Bowel Sounds ...Palpate: Yes: Soft, Other (nontender) Labs: CBC, BMP 05/08/18 08:00 05/08/18 08:00 INR, PTT INR 1.36 (0.83-1.09) H 05/08/18 08:00 Problem List - Problems (1) Abnormal LFTs (liver function tests) Assessment/Plan: These mild transaminase elevations may reflect reflect a DILI ( drug induced liver injury). will follow trend Code(s): R94.5 - ABNORMAL RESULTS OF LIVER FUNCTION STUDIES (2) Abdominal pain Assessment/Plan: Responding to Reglan supporting diabetic or viral gastroparesis Code(s): R10.9 - UNSPECIFIED ABDOMINAL PAIN (3) Diverticula of colon Code(s): K57.30 - DVRTCLOS OF LG INT W/O PERFORATION OR ABSCESS W/O BLEEDING (4) Diabetes 1.5, managed as type 2 Code(s): E10.9 - TYPE 1 DIABETES MELLITUS WITHOUT COMPLICATIONS (5) Hypertension Code(s): I10 - ESSENTIAL (PRIMARY) HYPERTENSION Qualifiers: Hypertension type: essential hypertension Qualified Code(s): I10 - Essential (primary) hypertension (6) Hyperlipidemia associated with type 2 diabetes mellitus Code(s): E11.69 - TYPE 2 DIABETES MELLITUS WITH OTHER SPECIFIED COMPLICATION; E78.5 - HYPERLIPIDEMIA, UNSPECIFIED (7) Nausea Code(s): R11.0 - NAUSEA (8) Poor appetite Code(s): R63.0 - ANOREXIA
[2018-05-08] MEDS: METOPROLOL TARTRATE 50 MG TABLET (FP) PO SCH ×2 (19:19→21:54)
[2018-05-08] MEDS: ATORVASTATIN CA 10 MG TABLET (FP) PO SCH (21:54)
[2018-05-09] MEDS: ACETAMINOPHEN 325 MG TABLET (FP) PO PRN (00:59)
[2018-05-09] MEDS: SODIUM CHLORIDE 1,000 ML IV SCH ×4 (03:29→23:52)
[2018-05-09 06:10] LABS: SERUM IRON SATURATION 20 % (15-55); TOTAL IRON BINDING CAPACITY 191 ug/dL (250-450); UIBC 153 ug/dL (118-369)
[2018-05-09] MEDS: metFORMIN HCL 500 MG TABLET (FP) PO SCH (06:47)
[2018-05-09 07:46] LABS: BASO % 0.3 % (0-2.0); EOS % 0.5 % (0-4.5); HEMATOCRIT 30.6 % (32.4-45.2); HEMOGLOBIN 10.3 GM/dL (10.7-15.3); LYMPH % 20.2 % (8-40); MCH 27.9 pg (25.7-33.7); MCHC 33.7 g/dl (32.0-36.0); MEAN CELL VOLUME 82.9 fl (80-96); MEAN PLT VOLUME 8.6 fl (7.5-11.1); MONO % 22.8 % (3.8-10.2); NEUT % 56.2 % (42.8-82.8); PLATELET COUNT 66 K/MM3 (134-434); RBC 3.69 M/mm3 (3.60-5.2); RDW 15.5 % (11.6-15.6); WHITE BLOOD COUNT 4.3 K/mm3 (4.0-10.0)
[2018-05-09 08:02] LABS: CHLORIDE 96 mmol/L (98-107); POTASSIUM 3.2 mmol/L (3.5-5.1); SODIUM 129 mmol/L (136-145)
[2018-05-09 08:17] LABS: ALBUMIN 2.3 g/dl (3.4-5.0); ALK PHOS 73 U/L (45-117); ANION GAP 9 MMOL/L (8-16); BILIRUBIN,TOTAL 1.2 mg/dL (0.2-1.0); BLOOD UREA NITROGEN 9 mg/dL (7-18); CALCIUM 7.7 mg/dL (8.5-10.1); CO2 24 mmol/L (21-32); CREATININE 0.7 mg/dL (0.55-1.02); GLUCOSE,RANDOM 123 mg/dL (74-106); MAGNESIUM 1.7 mg/dL (1.8-2.4); SGOT/AST 109 U/L (15-37); SGPT/ALT 77 U/L (12-78); TOT PROT 6.4 g/dl (6.4-8.2)
[2018-05-09] MEDS: METOCLOPRAMIDE HCL INJECTION 10 MG/2 ML VIAL IVPUSH PRN (09:25)
--- NOTE | 2018-05-09 09:47 | PN ---
Progress Note, Physician Chief Complaint: Pt lying in bed,Afebrile now,T max 102.9 No vomiting,tiredness present Hypokalemia hyponatremia improvement Elevated LFT,low Platelet Gi f/u blood cul and urine cul negative c/o dark stoolx2 stool guiac ordered - Current Medication List Current Medications: Active Medications Acetaminophen (Tylenol -) 650 mg PO Q6H PRN PRN Reason: FEVER Last Admin: 05/09/18 00:59 Dose: 650 mg Amlodipine Besylate (Norvasc -) 5 mg PO DAILY [facility] Last Admin: 05/08/18 09:47 Dose: 5 mg Atorvastatin Calcium (Lipitor -) 10 mg PO HS [facility] Last Admin: 05/08/18 21:54 Dose: 10 mg Calcium Carbonate (Os-Jah 500mg -) 500 mg PO DAILY [facility] Last Admin: 05/08/18 09:47 Dose: 500 mg Hydrochlorothiazide (Hctz -) 12.5 mg PO DAILY [facility] Last Admin: 05/08/18 10:01 Dose: 12.5 mg Sodium Chloride (Normal Saline -) 1,000 mls @ 75 mls/hr IV ASDIR [facility] Last Admin: 05/09/18 06:47 Dose: 75 mls/hr Levofloxacin (Levaquin 500 Mg Premixed Ivpb -) 500 mg in 100 mls @ 100 mls/hr IVPB DAILY [facility] Last Admin: 05/08/18 09:48 Dose: 100 mls/hr Metformin HCl (Glucophage -) 500 mg PO 0700 [facility] Last Admin: 05/09/18 06:47 Dose: 500 mg Metoclopramide HCl (Reglan Injection -) 10 mg IVPUSH Q8H PRN PRN Reason: NAUSEA AND/OR VOMITING Last Admin: 05/09/18 09:25 Dose: 10 mg Metoprolol Tartrate (Lopressor -) 50 mg PO HS [facility] Last Admin: 05/08/18 21:54 Dose: Not Given Pantoprazole Sodium (Protonix -) 20 mg PO DAILY [facility] Last Admin: 05/08/18 09:47 Dose: 20 mg Valsartan (Diovan -) 160 mg PO DAILY [facility] Last Admin: 05/08/18 09:47 Dose: 160 mg - Objective Vital Signs: Vital Signs Temperature 98.2 F 05/09/18 09:01 Pulse Rate 117 H 05/09/18 09:01 Respiratory Rate 24 05/09/18 09:01 Blood Pressure 150/79 05/09/18 09:01 O2 Sat by Pulse Oximetry (%) 98 05/08/18 21:00 Constitutional: Yes: No Distress Eyes: Yes: Conjunctiva Clear HENT: Yes: Atraumatic Neck: Yes: Supple, Trachea Midline Cardiovascular: Yes: Regular Rate and Rhythm, Tachycardia Respiratory: Yes: Regular, CTA Bilaterally Gastrointestinal: Yes: Normal Bowel Sounds, Soft Musculoskeletal: Yes: WNL Extremities: Yes: WNL Edema: No Peripheral Pulses WNL: Yes Neurological: Yes: WNL, Alert ...Motor Strength: WNL Psychiatric: Yes: WNL Labs: CBC, BMP 05/09/18 07:00 05/09/18 07:00 INR, PTT INR 1.36 (0.83-1.09) H 05/08/18 08:00 - ....Imaging Ultrasound: Report Reviewed Assessment/Plan UTI hypokalemia,hyponatremia POOR appetite, and po intake Elevated LFT,low platelet Fatigue, generalised weakness PLAN Continue IV antibiotics GI consult Continue Metformin,metoprolol and amlodipine K suppliment and Calcium suppliment will monitor labs endocrine ,hematology,ID consult stool guiac testing
[2018-05-09] MEDS ORDERED: MAGNESIUM OXIDE 400 MG TABLET (FP) PO ONE (10:00)
[2018-05-09 10:07] LABS: ANISOCYTOSIS 1+; MACROCYTOSIS 1+; OVALOCYTE 1+; PLATELET ESTIMATE DECREASED; TARGET CELLS 1+
--- NOTE | 2018-05-09 10:12 | CONSULT ---
Consultation: REQUESTING PROVIDER: CONSULT REQUEST: We have been asked to medically evaluate this patient for ( thrombocytopenia). HISTORY OF PRESENT ILLNESS: Patient is a 72 year old female, new patient to [facility], was sent by her PCP ( Dr.Sarojini Dunne) for evaluation of weakness and low appetite. As per the patient, she was apparently well until 2 weeks ago then she started having generalized weakness and low appetite. She had some blood work and UA done 2 days ago at her PCP's office, was found to have UTI and was given PO Ciprofloxacin. Her weakness, excessive tiredness and nausea progressively got worse hence was sent to the ED for further evaluation and treatment. Denies chest pain, sob, cough, palpitation, abdominal pain, headache, numbness, tingling, or any focal neurological deficit. Has noticed for the past few weeks, she has decreased Bowel movement. Last bowel movement was yesterday and it was dark in color, no BRB. Colonoscopy was done about 5 yrs ago, had diverticulosis and was told she needs it to be done every 5 yrs. Hasn't done EGD before. Bladder habit normal. Sleep-disturbed. Last Mammo done 2 yrs ago. Overnight, had a temp of 102.9. PAST MEDICAL HISTORY: Hyperlipidemia, DM, UTI, Labile HTN; Diastolic dysfunction ; History of chest pain syndrome, Diverticulosis ALLERGIES: Sesame Seed PAST SURGICAL HISTORY: 1 c-sec FAMILY HISTORY: Both parents-DM, no family h/o cancer SOCIAL HISTORY: Smoking: Denies Alcohol: Denies Drugs: Denies OCCUPATION: Retired Nurse. REVIEW OF SYSTEMS: CONSTITUTIONAL: Present: generalized weakness, malaise Absent: fever, chills, diaphoresis, loss of appetite, weight change HEENT: Absent: rhinorrhea, nasal congestion, throat pain, throat swelling, difficulty swallowing, mouth swelling, ear pain, eye pain, visual changes CARDIOVASCULAR: Absent: chest pain, syncope, palpitations, irregular heart rate, lightheadedness , peripheral edema RESPIRATORY: Absent: cough, shortness of breath, dyspnea with exertion, orthopnea, wheezing, stridor, hemoptysis GASTROINTESTINAL: Absent: abdominal pain, abdominal distension, nausea, vomiting, diarrhea, constipation, melena, hematochezia GENITOURINARY: Absent: dysuria, frequency, urgency, hesitancy, hematuria, flank pain, genital pain MUSCULOSKELETAL: Absent: myalgia, arthralgia, joint swelling, back pain, neck pain SKIN: Absent: rash, itching, pallor HEMATOLOGIC/IMMUNOLOGIC: Absent: easy bleeding, easy bruising, lymphadenopathy, frequent infections ENDOCRINE: Absent: unexplained weight gain, unexplained weight loss, heat intolerance, cold intolerance NEUROLOGIC: Absent: headache, focal weakness or paresthesias, dizziness, unsteady gait, seizure, mental status changes, bladder or bowel incontinence PSYCHIATRIC: Absent: anxiety, depression, suicidal or homicidal ideation, hallucinations. PHYSICAL EXAMINATION Vital Signs - 24 hr 05/08/18 05/08/18 05/08/18 10:30 14:18 18:10 Temperature 98.1 F 99.1 F Pulse Rate 98 H 117 H Respiratory 16 24 Rate Blood Pressure 119/62 113/74 O2 Sat by Pulse 98 Oximetry (%) 05/08/18 05/08/18 05/08/18 18:52 19:03 19:14 Temperature 99.4 F 98.5 F 98.1 F Pulse Rate 112 H 139 H 135 H Respiratory 22 24 24 Rate Blood Pressure 150/77 140/80 145/80 O2 Sat by Pulse Oximetry (%) 05/08/18 05/08/18 05/08/18 19:31 19:48 21:00 Temperature 99 F Pulse Rate 127 H 120 H Respiratory 24 24 20 Rate Blood Pressure 132/72 129/77 O2 Sat by Pulse 98 Oximetry (%) 05/08/18 05/09/18 05/09/18 22:00 01:30 02:10 Temperature 98.7 F 102.9 F H 101.1 F H Pulse Rate 96 H 116 H Respiratory 20 20 Rate Blood Pressure 137/72 129/62 O2 Sat by Pulse Oximetry (%) 05/09/18 05/09/18 06:00 09:01 Temperature 98.4 F 98.2 F Pulse Rate 87 117 H Respiratory 20 24 Rate Blood Pressure 133/73 150/79 O2 Sat by Pulse Oximetry (%) GENERAL: Elderly female, sitting comfortably in bed, looks tired, Awake, alert, and fully oriented, in no acute distress. HEAD: Normal with no signs of trauma. EYES: EOM intact, pallor +, no icterus. EARS, NOSE, THROAT: Ears normal. Dry mucous membranes. NECK: Supple. BREAST EXAM: Normal, no nodules palpated AXILLA: No axillary lymph nodes palpated. LUNGS: B/L Breath sounds equal, clear to auscultation bilaterally. No wheezes, and no crackles. No accessory muscle use. HEART: Tachycardic, Regular rate and rhythm, normal S1 and S2 with soft systolic murmur. ABDOMEN: Soft, nontender, no organomegaly. MUSCULOSKELETAL: Normal range of motion at all joints. No bony deformities or tenderness. No CVA tenderness. UPPER EXTREMITIES: 2+ pulses, warm, well-perfused. No cyanosis. No clubbing. Cap refill <2 seconds. No peripheral edema. LOWER EXTREMITIES: Pigmentation below the knee, 2+ pulses, warm, well-perfused. No calf tenderness. No peripheral edema. NEUROLOGICAL: No facial droop, Power 5/5 in all extremities, sensation intact, Cranial nerves II-XII intact. Normal speech. Gait not observed. PSYCHIATRIC: Cooperative. Good eye contact. Appropriate mood and affect. SKIN: Warm, dry, normal turgor, no rashes or lesions noted. Laboratory Results - last 24 hr 05/08/18 05/08/18 05/08/18 08:00 08:00 09:44 WBC RBC Hgb Hct MCV MCH MCHC RDW Plt Count MPV Absolute Neuts (auto) Neutrophils % Neutrophils % (Manual) 47.5 Band Neutrophils % 7.0 Lymphocytes % Lymphocytes % (Manual) 27.3 Monocytes % Monocytes % (Manual) 17 H Eosinophils % Eosinophils % (Manual) 0.0 Basophils % Basophils % (Manual) 0.0 Myelocytes % (Man) 0 Promyelocytes % (Man) 0 Blast Cells % (Manual) 0 Nucleated RBC % Metamyelocytes 0 Hypochromia 1+ Platelet Estimate Decreased Polychromasia 0 Poikilocytosis 0 Anisocytosis 1+ Microcytosis 1+ Macrocytosis 0 Sodium Potassium Chloride Carbon Dioxide Anion Gap BUN Creatinine Creat Clearance w eGFR POC Glucometer 134 Random Glucose Calcium Magnesium Iron 38 TIBC 191 L Iron Saturation 20 Total Bilirubin AST ALT Alkaline Phosphatase Total Protein Albumin Hep C Ab Diagnostic <0.1 Liver Fibrosis Interp 05/08/18 05/08/18 05/08/18 12:14 16:58 21:05 WBC RBC Hgb Hct MCV MCH MCHC RDW Plt Count MPV Absolute Neuts (auto) Neutrophils % Neutrophils % (Manual) Band Neutrophils % Lymphocytes % Lymphocytes % (Manual) Monocytes % Monocytes % (Manual) Eosinophils % Eosinophils % (Manual) Basophils % Basophils % (Manual) Myelocytes % (Man) Promyelocytes % (Man) Blast Cells % (Manual) Nucleated RBC % Metamyelocytes Hypochromia Platelet Estimate Polychromasia Poikilocytosis Anisocytosis Microcytosis Macrocytosis Sodium Potassium Chloride Carbon Dioxide Anion Gap BUN Creatinine Creat Clearance w eGFR POC Glucometer 159 128 200 Random Glucose Calcium Magnesium Iron TIBC Iron Saturation Total Bilirubin AST ALT Alkaline Phosphatase Total Protein Albumin Hep C Ab Diagnostic Liver Fibrosis Interp 05/09/18 05/09/18 05/09/18 06:31 07:00 07:00 WBC 4.3 RBC 3.69 Hgb 10.3 L Hct 30.6 L MCV 82.9 MCH 27.9 MCHC 33.7 RDW 15.5 Plt Count 66 L MPV 8.6 Absolute Neuts (auto) 2.4 Neutrophils % 56.2 Neutrophils % (Manual) Band Neutrophils % Lymphocytes % 20.2 Lymphocytes % (Manual) Monocytes % 22.8 H Monocytes % (Manual) Eosinophils % 0.5 Eosinophils % (Manual) Basophils % 0.3 Basophils % (Manual) Myelocytes % (Man) Promyelocytes % (Man) Blast Cells % (Manual) Nucleated RBC % 0 Metamyelocytes Hypochromia Platelet Estimate Polychromasia Poikilocytosis Anisocytosis Microcytosis Macrocytosis Sodium 129 L Potassium 3.2 L Chloride 96 L Carbon Dioxide 24 Anion Gap 9 BUN 9 Creatinine 0.7 Creat Clearance w eGFR > 60 POC Glucometer 114 Random Glucose 123 H Calcium 7.7 L Magnesium 1.7 L Iron TIBC Iron Saturation Total Bilirubin 1.2 H AST 109 H ALT 77 Alkaline Phosphatase 73 Total Protein 6.4 Albumin 2.3 L Hep C Ab Diagnostic Liver Fibrosis Interp Active Medications Generic Name Dose Route Start Last Admin Trade Name Freq PRN Reason Stop Dose Admin Acetaminophen 650 mg 05/06/18 23:39 05/09/18 00:59 Tylenol - PO 650 mg Q6H PRN Administration FEVER Amlodipine Besylate 5 mg 05/07/18 10:00 05/08/18 09:47 Norvasc - PO 5 mg DAILY KAMILAH Administration Atorvastatin Calcium 10 mg 05/07/18 22:00 05/08/18 21:54 Lipitor - PO 10 mg HS KAMILAH Administration Calcium Carbonate 500 mg 05/08/18 10:00 05/08/18 09:47 Os-Jah 500mg - PO 500 mg DAILY KAMILAH Administration Hydrochlorothiazide 12.5 mg 05/07/18 10:00 05/08/18 10:01 Hctz - PO 12.5 mg DAILY KAMILAH Administration Sodium Chloride 1,000 mls @ 75 mls/hr 05/06/18 23:45 05/09/18 06:47 Normal Saline - IV 75 mls/hr ASDIR KAMILAH Administration Levofloxacin 500 mg in 100 mls @ 100 mls/hr 05/07/18 12:45 05/08/18 09:48 Levaquin 500 Mg Premixed Ivpb - IVPB 100 mls/hr DAILY KAMILAH Administration Metformin HCl 500 mg 05/07/18 07:00 05/09/18 06:47 Glucophage - PO 500 mg 0700 KAMILAH Administration Metoclopramide HCl 10 mg 05/07/18 21:02 05/09/18 09:25 Reglan Injection - IVPUSH 10 mg Q8H PRN Administration NAUSEA AND/OR VOMITING Metoprolol Tartrate 50 mg 05/07/18 22:00 05/08/18 21:54 Lopressor - PO Not Given HS KAMILAH Pantoprazole Sodium 20 mg 05/07/18 15:30 05/08/18 09:47 Protonix - PO 20 mg DAILY KAMILAH Administration Potassium Chloride 40 meq 05/09/18 10:15 K-Dur - PO 05/09/18 10:16 ONCE ONE Valsartan 160 mg 05/07/18 10:00 05/08/18 09:47 Diovan - PO 160 mg DAILY KAMILAH Administration Patient is a 72 year old female, new patient to [facility], with past medical history of Hyperlipidemia, DM, UTI, Labile HTN; Diastolic dysfunction; History of chest pain syndrome, Diverticulosis was sent by her PCP (Dr. Werner) for evaluation of weakness and low appetite. ASSESSMENT UTI- currently on IV Levofloxacin, Urine cultures neg, Blood cultures neg. Tmax 102.6 F Decreased BM- Likely secondary to gastroparesis: currently on Reglan and protonix with symptomatic relief Electrolye imbalance: Hyponatremia, hypokalemia, Hypomagnesemia likely secondary to poor oral intake vs HCTZ use. Thrombocytopenia Normocytic anemia Labile Hypertension Hyperlipidemia DM- A1c done 2 weeks ago was 6.5 as per the patient. Diastolic dysfunction H/o Chest pain syndrome- No active chest pain PLAN: # Thrombocytopenia-Unknown if it is acute or chronic Platelet count 77 on admission---> today its 66. Likely secondary to infection vs antibiotic use vs liver disease. # Normocytic anemia H/H 10.3/30.6, no signs of active bleed. Patient states she noticed black colored stool yesterday. Stool for occult blood ordered. Ferritin high questionable reactive, questionable related to liver disease. normal iron, TIBC is low compatible with chronic illness ? liver disease ? other # Reverse A/G ratio-r/o dysproteinemia or possible polyclonal gammopathy secondary to underlying liver disease. Will send UPEP, IPEP, SPEP, quantitative immunoglobulins. # Monocytosis COuld be due to liver disease or infectious-viral or malignant. Will observe and consider flow cytometry. Will need to review peripheral smear. # Corrected reticulocyte is 1.6 which is normal. Rest as per primary. Plan of care discussed with the patient and her . They verbalized understanding. Case discussed with Dr. Castellanos. Dispo: We will continue to follow the patient. Thank you for this consultative opportunity. Visit type - Emergency Visit Emergency Visit: Yes ED Registration Date: 05/06/18 Care time: The patient presented to the Emergency Department on the above date and was hospitalized for further evaluation of their emergent condition. - New Patient This patient is new to me today: Yes Date on this admission: 05/05/18 - Critical Care Critical Care patient: No
[2018-05-09] MEDS ORDERED: POTASSIUM CHLORIDE TABS 20 MEQ TABLET.ER (FP) PO ONE (10:15)
[2018-05-09 10:17] LABS: TRANSGLUTAMINASE IGA 2 U/mL (0-3); TRANSGLUTAMINASE IGG 7 U/mL (0-5)
[2018-05-09] MEDS: amLODIPine BESYLATE 5 MG TABLET (FP) PO SCH (10:41)
[2018-05-09] MEDS: HYDROCHLOROTHIAZIDE 12.5 MG CAPSULE (FP) PO SCH (10:41)
[2018-05-09] MEDS: PANTOPRAZOLE 20 MG TABLET (FP) PO SCH (10:41)
[2018-05-09] MEDS: CALCIUM (OYSTER SHELL) 500 MG TABLET (FP) PO SCH (10:41)
[2018-05-09] MEDS: VALSARTAN 160 MG TABLET (UD) PO SCH (10:41)
--- NOTE | 2018-05-09 10:59 | PN ---
Progress Note, Physician Chief Complaint: Events noted Denies chest pain or SOB History of Present Illness: Patient was seen and examined. Awake and alert. Chart was reviewed Denies chest pain, SOB or palpitations, but complains of increased heart rate - Current Medication List Current Medications: Active Medications Acetaminophen (Tylenol -) 650 mg PO Q6H PRN PRN Reason: FEVER Last Admin: 05/09/18 00:59 Dose: 650 mg Amlodipine Besylate (Norvasc -) 5 mg PO DAILY [facility] Last Admin: 05/09/18 10:41 Dose: 5 mg Atorvastatin Calcium (Lipitor -) 10 mg PO HS [facility] Last Admin: 05/08/18 21:54 Dose: 10 mg Calcium Carbonate (Os-Jah 500mg -) 500 mg PO DAILY [facility] Last Admin: 05/09/18 10:41 Dose: 500 mg Hydrochlorothiazide (Hctz -) 12.5 mg PO DAILY [facility] Last Admin: 05/09/18 10:41 Dose: 12.5 mg Sodium Chloride (Normal Saline -) 1,000 mls @ 75 mls/hr IV ASDIR [facility] Last Admin: 05/09/18 06:47 Dose: 75 mls/hr Levofloxacin (Levaquin 500 Mg Premixed Ivpb -) 500 mg in 100 mls @ 100 mls/hr IVPB DAILY [facility] Last Admin: 05/09/18 10:42 Dose: 100 mls/hr Metformin HCl (Glucophage -) 500 mg PO 0700 [facility] Last Admin: 05/09/18 06:47 Dose: 500 mg Metoclopramide HCl (Reglan Injection -) 10 mg IVPUSH Q8H PRN PRN Reason: NAUSEA AND/OR VOMITING Last Admin: 05/09/18 09:25 Dose: 10 mg Metoprolol Tartrate (Lopressor -) 50 mg PO HS [facility] Last Admin: 05/08/18 21:54 Dose: Not Given Pantoprazole Sodium (Protonix -) 20 mg PO DAILY [facility] Last Admin: 05/09/18 10:41 Dose: 20 mg Valsartan (Diovan -) 160 mg PO DAILY [facility] Last Admin: 05/09/18 10:41 Dose: 160 mg - Objective Vital Signs: Vital Signs Temperature 99.1 F 05/09/18 10:35 Pulse Rate 117 H 05/09/18 10:35 Respiratory Rate 24 09/11/18 10:35 Blood Pressure 138/71 09/11/18 10:35 O2 Sat by Pulse Oximetry (%) 98 05/08/18 21:00 Neck: Yes: Supple Cardiovascular: Yes: Regular Rate and Rhythm, Tachycardia, Murmur (Soft SM), S1 , S2 Respiratory: Yes: CTA Bilaterally Gastrointestinal: Yes: Normal Bowel Sounds, Soft. No: Tenderness Edema: No Labs: CBC, BMP 05/09/18 07:00 05/09/18 07:00 INR, PTT INR 1.36 (0.83-1.09) H 05/08/18 08:00 Problem List - Problems (1) Hypercholesterolemia Code(s): E78.00 - PURE HYPERCHOLESTEROLEMIA, UNSPECIFIED (2) Abnormal LFTs (liver function tests) Code(s): R94.5 - ABNORMAL RESULTS OF LIVER FUNCTION STUDIES (3) Diabetic gastroparesis Code(s): E11.43 - TYPE 2 DIABETES W DIABETIC AUTONOMIC (POLY)NEUROPATHY; K31.84 - GASTROPARESIS (4) Diastolic dysfunction Code(s): I51.9 - HEART DISEASE, UNSPECIFIED (5) Hypertension Code(s): I10 - ESSENTIAL (PRIMARY) HYPERTENSION Qualifiers: Hypertension type: essential hypertension Qualified Code(s): I10 - Essential (primary) hypertension (6) Weakness Code(s): R53.1 - WEAKNESS Assessment/Plan 1. Dyspepsia and nausea with gastroperisis possibly due to DM 2. UTI 3. Labile HTN 4. Diastolic dysfunction 5. Type 2 DM 6. Hyperlipidemia 7. History of chest pain syndrome PLAN: 1. Complete empiric antibiotic course 2. Placed on Reglan and Protonix with improvement 3. Continue Toprol XL 25 qd, Norvasc 5 qd, Lipitor 10 qd, ASA 81 qd and Valsartan 160 qd Supportive care Further plans are to follow Rigoberto Davis MD
[2018-05-09] MEDS ORDERED: METOPROLOL TARTRATE 25 MG TABLET (FP) PO ONE (13:25)
--- NOTE | 2018-05-09 15:14 | CONSULT ---
Consult Consult Specialty:: Endocrinology Referred by:: Dr Mansfield Reason for Consultation:: Hyponatremia - History of Present Illness Chief Complaint: Fever , weakness History of Present Illness: This is a 72 y/o F with h/o chest pain syndrome, diastolic dysfunction, labile HTN, Type 2 DM, hyperlipidemia admitted for fever, weakness and sore throat. Pt denies any chest pain, palpitations, orthopnea, PND or leg edema. Pt recently treated with Cipro for UTI. Currently denies any urinary symptoms. Pt referred for evaluation of hyponatremia. Has been on HCTZ for few years. Denies any h/o leg edema or PND. Has been feeling sick for about a week and has been drinking water but not eating much. - History Source History Provided By: Patient, Medical Record - Past Medical History Cardio/Vascular: Yes: HTN, Hyperlipdemia, Mitral Insufficiency, Pulmonary Hypertension Gastrointestinal: Yes: Diverticulosis Endocrine: Yes: Diabetes Mellitus - Past Surgical History Past Surgical History: Yes: Cataract Removal (bilateral), - Alcohol/Substance Use Hx Alcohol Use: No History of Substance Use: reports: None - Smoking History Smoking history: Never smoked Have you smoked in the past 12 months: No - Social History Usual Living Arrangement: With Spouse ADL: Independent Occupation: retired RN History of Recent Travel: No Home Medications - Allergies Allergies/Adverse Reactions: Allergies Allergy/AdvReac Type Severity Reaction Status Date / Time sesame seed Allergy Unknown Rash Verified 05/06/18 15:12 - Home Medications Home Medications: Ambulatory Orders Amlodipine Besylate 5 mg PO DAILY 02/26/16 Aspirin [ASA -] 81 mg PO DAILY 02/26/16 Metoprolol Succinate [Toprol XL -] 25 mg PO DAILY 02/26/16 Telmisartan [Micardis] 40 mg PO ASDIR 05/06/18 Family Disease History - Family Disease History Other Family History: No family h/o DM Review of Systems - Review of Systems Constitutional: reports: Fever, Loss of Appetite, Malaise Eyes: reports: No Symptoms HENT: reports: No Symptoms Neck: reports: No Symptoms Cardiovascular: reports: No Symptoms Respiratory: reports: No Symptoms Gastrointestinal: reports: No Symptoms Genitourinary: reports: No Symptoms Musculoskeletal: reports: No Symptoms Neurological: reports: No Symptoms Endocrine: reports: No Symptoms Physical Exam Vital Signs: Vital Signs Temperature 99.1 F 05/09/18 13:37 Pulse Rate 131 H 05/09/18 13:37 Respiratory Rate 24 05/09/18 13:24 Blood Pressure 135/43 05/09/18 13:37 O2 Sat by Pulse Oximetry (%) 98 05/08/18 21:00 Constitutional: Yes: No Distress, Calm Eyes: Yes: Conjunctiva Clear, EOM Intact HENT: Yes: Atraumatic, Normocephalic Neck: Yes: Supple, Trachea Midline Cardiovascular: Yes: Regular Rate and Rhythm Respiratory: Yes: Regular, CTA Bilaterally Gastrointestinal: Yes: Normal Bowel Sounds, Soft Musculoskeletal: Yes: WNL Extremities: Yes: WNL Edema: No Neurological: Yes: Alert, Oriented Labs: CBC, BMP 05/09/18 07:00 05/09/18 07:00 Assessment/Plan AP; UTI T2DM Hypokalemia,Hyponatremia Elevated LFT, Thrombocytopenia Fatigue Will d/c HCTZ for now. Repeat electrolytes off HCTZ Hyponatremia/Hypokalemia/Hypomagnesemia compatible with HCTZ use Increase dose of antihypertensive medications if necessary to control blood pressure. Pt denies any h/o Edema or CAM
--- NOTE | 2018-05-09 16:04 | ECHO ---
Name: SEBASTIÁN THOMAS Exam:Adult Echocardiogram Study Date: 05/09/2018 02:42 PM Age: 72 yrs Reason For Study: SINUS TACHYCARDIA Height: 60 in Weight: 129 lb BSA: 1.5 m2 MMode/2D Measurements & Calculations IVSd: 0.84 cm Ao root diam: 2.4 cm LVIDd: 3.6 cm LA dimension: 3.5 cm LVIDs: 2.6 cm LVPWd: 0.81 cm EDV(Teich): 56.0 ml TAPSE: 2.1 cm ESV(Teich): 23.7 ml RV S Jake: 13.1 cm/sec Doppler Measurements & Calculations MV E max jake: 52.8 cm/sec Ao V2 max: 126.0 cm/sec MV A max jake: 112.0 cm/sec Ao max P.3 mmHg MV E/A: 0.47 LV V1 max P.0 mmHg TR max jake: 181.7 cm/sec LV V1 max: 122.9 cm/sec TR max P.3 mmHg Med Peak E' Jake: 3.5 cm/sec Med E/e': 15.2 Lat Peak E' Jake: 8.8 cm/sec Lat E/e': 6.0 Procedure The study was technically difficult with many images being suboptimal in quality. Left Ventricle The left ventricular cavity is small. The left ventricle is hyperdynamic. E/A reversal consistent wit h but not diagnostic of poor LV compliance. Right Ventricle The right ventricle is normal size. The right ventricle is hyperdynamic. Atria Normal left and right atrial size and function. Mitral Valve There is moderate mitral annular calcification. There is mild mitral regurgitation. Tricuspid Valve The tricuspid valve is not well visualized, but is grossly normal. There is trace tricuspid regurgita tion. There was insufficient TR detected to calculate RV systolic pressure. Aortic Valve There is moderate aortic valve thickening. Pulmonic Valve The pulmonic valve is not well visualized. Great Vessels The aortic root is normal size. Pericardium/Pleura There is no pericardial effusion. Interpretation Summary The study was technically difficult with many images being suboptimal in quality. The left ventricular cavity is small. The left ventricle is hyperdynamic. E/A reversal consistent with but not diagnostic of poor LV compliance The right ventricle is normal size. The right ventricle is hyperdynamic. Normal left and right atrial size and function. There is moderate aortic valve thickening. There is moderate mitral annular calcification. There is mild mitral regurgitation. MD Emily Ross 05/09/2018 04:03 PM
--- NOTE | 2018-05-09 17:15 | PN ---
Progress Note (short form) - Note Progress Note: ID consult dictated 72 year old female with NIDDM, HTN with 10 days of malaise, fever, lose of appetite, abnl lfts, Thrombocytopenia on further questioning, has not felt like eating since mid march fuo weight loss thrombocytopenia diff diagnosis includes viral illness- cmv, ebv, tick illness versus malignancy send serology for cmv and ebv send babesia pcr/smear anaplasma serology ehrlichia serology d/c levaquin start doxycycline haptoglobin retic count ldh ct scan abd/pelvis r/o malignancy d/w dr ferrer Problem List - Problems (1) Fever of unknown origin (FUO) Code(s): R50.9 - FEVER, UNSPECIFIED (2) Weight loss Code(s): R63.4 - ABNORMAL WEIGHT LOSS (3) Thrombocytopenia Code(s): D69.6 - THROMBOCYTOPENIA, UNSPECIFIED
--- NOTE | 2018-05-09 17:16 | EKG ---
Test Reason : Blood Pressure : / mmHG Vent. Rate : 122 BPM Atrial Rate : 122 BPM P-R Int : 128 ms QRS Dur : 064 ms QT Int : 306 ms P-R-T Axes : 037 026 032 degrees QTc Int : 436 ms SINUS TACHYCARDIA LOW VOLTAGE QRS BORDERLINE ECG Confirmed by MD MAYA, RACHEL ([id number]) on 05/09/2018 5:15:55 PM Referred By: Confirmed By:RACHEL TREJO MD
--- NOTE | 2018-05-09 17:49 | PN ---
GI Progress Note Subjective: GI Note: Eating poorly. Fevers to 102.9 noted. Has chills. No pains. Now has diarrhea. Dr Dunne tells me that office testing reveals that Fatmata is HCV and Hep A negative. I have expressed my concern to Fatmata her and Dr Miles that she may have an underlying malignancy and will order a CT scan of the chest,abdomen and pelvis. Hepatocellular carcinoma would account for fever and abnormal LFTs. I have also discussed the possible need for a liver biopsy. Cirrhosis with splenomegaly would account for thrombocytopenia. CT gi help to exclude cirrhosis and ascites. Will screen benjamin for pathogens given the diarrhea - Objective Vital Signs: Vital Signs Temperature 99.5 F 05/09/18 15:33 Pulse Rate 103 H 05/09/18 15:33 Respiratory Rate 24 05/09/18 15:33 Blood Pressure 135/70 05/09/18 15:33 O2 Sat by Pulse Oximetry (%) 97 05/09/18 10:35 Selected Entries 05/06/18 05/08/18 05/08/18 15:10 06:00 09:33 Temperature 101.5 F H 99.8 F H 101.7 F H 05/09/18 05/09/18 01:30 02:10 Temperature 102.9 F H 101.1 F H Laboratory Tests 05/08/18 05/09/18 05/09/18 08:00 07:00 07:00 Hgb 10.3 L Plt Count 66 L PT with INR 15.40 H Total Bilirubin 1.2 H AST 109 H ALT 77 Alkaline Phosphatase 73 Albumin 2.3 L Constitutional: Anxious Gastrointestinal Inspection: Yes: WNL ...Auscultate: Yes: Hypoactive Bowel Sounds ...Palpate: Yes: Soft, Other (nontender) ...Percussion: Yes: Tympanitic Labs: CBC, BMP 05/09/18 07:00 05/09/18 07:00 INR, PTT INR 1.36 (0.83-1.09) H 05/08/18 08:00 Assessment/Plan CT Scan chest, abdomen and pelvis to exclude malignancy and abscess Switch to oral Reglan AFP Problem List - Problems (1) Abnormal LFTs (liver function tests) Assessment/Plan: Dr Miles tells me that she has not treated Fatmata with Augmentin which is a common cause of DILI ( drug induced liver injury). Will order CT scan chest ,abdomen and pelvis,and AFP. Await HBV serologies. Code(s): R94.5 - ABNORMAL RESULTS OF LIVER FUNCTION STUDIES (2) Abdominal pain Code(s): R10.9 - UNSPECIFIED ABDOMINAL PAIN (3) Diverticula of colon Code(s): K57.30 - DVRTCLOS OF LG INT W/O PERFORATION OR ABSCESS W/O BLEEDING (4) Diabetes 1.5, managed as type 2 Code(s): E10.9 - TYPE 1 DIABETES MELLITUS WITHOUT COMPLICATIONS (5) Hypertension Code(s): I10 - ESSENTIAL (PRIMARY) HYPERTENSION Qualifiers: Hypertension type: essential hypertension Qualified Code(s): I10 - Essential (primary) hypertension (6) Hyperlipidemia associated with type 2 diabetes mellitus Code(s): E11.69 - TYPE 2 DIABETES MELLITUS WITH OTHER SPECIFIED COMPLICATION; E78.5 - HYPERLIPIDEMIA, UNSPECIFIED (7) Nausea Code(s): R11.0 - NAUSEA (8) Poor appetite Code(s): R63.0 - ANOREXIA
--- NOTE | 2018-05-09 18:00 | CONS ---
DATE OF CONSULTATION: DATE OF DICTATION: 05/09/2018 INFECTIOUS DISEASE CONSULTATION REQUESTING PHYSICIAN: Debbi Dunne M.D. CONSULTING PHYSICIAN: Milagros Leggett M.D. HISTORY OF PRESENT ILLNESS: This is a 72-year-old woman. She has been feeling sick and week for at least the last 7 to 10 days. She was admitted to the hospital on the with complaints of fatigue and fever at home. She has no appetite whatsoever. She has not been eating. She has no diarrhea. In fact, she was constipated at home. She denies any tick bites or mosquito bites. She denies to me any cough or sore throat, though to the emergency room she apparently reported sore throat and cough. She had been taking Tylenol at home for the fever. She had gone to see Dr. Dunne as an outpatient and had been started on Cipro 2 days prior to admission, so which would be on the , and she had a fever of 101 in the emergency room. She is completely awake and alert. Of note is the fact that she is thrombocytopenic. I spoke to Dr. Dunne who reports that on the when she saw her in the office, her platelets were 128,000 and in 2016 they were normal, which is the last set of labs she has. Patient recently traveled to [place]. She was there from April 12 to April 25. Essentially she stayed with family. In retrospect, she now reports during that trip that she really was not herself and did not have a good appetite. She was not eating well. She has no associated cough. She has no sore throat. She complains of just generalized weakness and body pain. PAST MEDICAL HISTORY: Notable for history of hypertension, hyperlipidemia, mitral insufficiency, pulmonary hypertension, diverticulosis and diabetes. SURGICAL HISTORY: Notable for and cataract removal. SOCIAL HISTORY: She lives with her . There has been no recent travel. They also live with their daughter and her 2 children. No one is sick at this time. There is no history of cigarette or substance use. 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 ALLERGIES: She is allergic to SESAME SEEDS. MEDICATION: Her medication as an outpatient include Micardis, Toprol XL, aspirin and amlodipine. She also takes metformin 500 mg a day as an outpatient. REVIEW OF SYSTEMS: Notable for weight loss. She currently weighs 127 pounds, she usually weighs 133 pounds. She has no history of TB and has been tested in the past and reports she has been negative all her times in the [facility]. She denies tick bites and mosquito bites. PHYSICAL EXAMINATION: GENERAL: She is a weak appearing woman in no acute distress. VITAL SIGNS: Current temperature is 99.5, her heart rate has been as high as 130, currently 103. Her temperature has been as high as 102.9. Blood pressure 135/70, respiratory rate 24. HEENT: Normocephalic. Eyes are anicteric. She has good dentition. She has no thrush. NECK: Supple. LUNGS: Clear to auscultation. HEART: Regular rate and rhythm. ABDOMEN: Soft, nontender. She has no palpable adenopathy. EXTREMITIES: Without edema. She has no rash. LABORATORY: Notable for white count of 4.3 today, hemoglobin 10.3, platelets are 66,000. Differential is notable for 22% monocytes. Her INR is 1.3. BUN and creatinine are 9 and 0.7, total bilirubin is 1.2 with an AST of 109. Urinalysis has 2 white cells, stool occult blood is negative. She has evidence of old hepatitis A and she is hepatitis B surface antibody positive. Her hepatitis C antibody is negative as well. Blood cultures done on admission were negative, and as well as throat culture, and currently she is on Levaquin day 3. IMPRESSION: In summary, this is a 72-year-old woman with an which is marked by thrombocytopenia, abnormal liver function tests which appear to be notable for an elevated AST and elevated bilirubin. She has a CRP of 7.8 and no sedimentation rate has been sent. Her platelets on admission were 81 and are now 66. Bilirubin is now 1.3, her hemoglobin is now 10.3. She was admitted with a hemoglobin of 11.6. Ultrasound has been done. Chest x-ray is negative for infiltrates. Ultrasound shows no gallstones and otherwise the right kidney was normal and was only of the right upper quadrant, so the screen was not evaluated. In summary, this is a 72-year-old woman admitted with fevers, malaise, loss of appetite, and thrombocytopenia. She also has an elevated bilirubin and is starting to have some anemia with an elevated AST. Differential diagnosis would include malignancy as well as viral illness as well as tickborne illness. I would suggest we stop her Levaquin, as she has gotten 6 days without any improvement. We will send off a blood smear for Babesia. She does not give any risk factors for spending time outside, but she [place] area [place], so I think it would be reasonable to explore this option. Would recommend we obtain the blood smear. Would also obtain anaplasma serology, Babesia PCR, serology. Would treat her empirically with doxycycline while we are waiting for this smear. Would consider CAT scan of her abdomen and pelvis to rule out malignancy, which apparently is being discussed with gastrointestinal, and would certainly agree with hematology evaluation. Would also send off CMV and EBV serology, as this could be viral in origin. Case was discussed with Dr. Dunne. MILAGROS LEGGETT M.D. [id number]
[2018-05-09] MEDS ORDERED: PT OWN MED DRAWER 7, Y5N ONE (18:24)
--- NOTE | 2018-05-09 20:06 | PN ---
Teaching Attending Note Name of Resident: Razia Segura ATTENDING PHYSICIAN STATEMENT I saw and evaluated the patient. I reviewed the resident's note and discussed the case with the resident. I agree with the resident's findings and plan as documented. SUBJECTIVE:Patient seen and examined Anemia likely of chronic disease - liver disease, other? --high ferritin -low TIBC Monocytosis- for EBV, CMV, Toxo, ?? flow cytometry in future Thrombocytopenia--? liver disease , ,?? infectious , ?? recent antibiotics Reveres A/G - ?? polyclonal secondary to liver disease , R/o dysproteinemia For work up as discussed. OBJECTIVE: ASSESSMENT AND PLAN:
[2018-05-09] MEDS: DOXYCYCLINE INJECTION 100 MG in DEXTROSE 5%-WATER - 100 ML IVPB SCH (22:04)
[2018-05-09] MEDS: METOPROLOL TARTRATE 50 MG TABLET (FP) PO SCH (23:50)
[2018-05-09] MEDS: ATORVASTATIN CA 10 MG TABLET (FP) PO SCH (23:50)
[2018-05-10 06:06] LABS: HBSAG SCREEN Negative (Negative); HEP A AB, IGM Negative (Negative); HEP B CORE AB, TOT Positive (Negative)
[2018-05-10] MEDS: metFORMIN HCL 500 MG TABLET (FP) PO SCH (06:18)
[2018-05-10] MEDS: METOCLOPRAMIDE HCL 10 MG TABLET (FP) PO SCH ×2 (06:19→11:09)
[2018-05-10 07:11] LABS: BASO % 0.5 % (0-2.0); EOS % 0.2 % (0-4.5); HEMATOCRIT 26.8 % (32.4-45.2); HEMOGLOBIN 9.2 GM/dL (10.7-15.3); LYMPH % 23.5 % (8-40); MCH 28.1 pg (25.7-33.7); MCHC 34.3 g/dl (32.0-36.0); MEAN PLT VOLUME 8.8 fl (7.5-11.1); MONO % 23.1 % (3.8-10.2); NEUT % 52.7 % (42.8-82.8); PLATELET COUNT 59 K/MM3 (134-434); RBC 3.27 M/mm3 (3.60-5.2); RDW 15.7 % (11.6-15.6); WHITE BLOOD COUNT 4.2 K/mm3 (4.0-10.0)
--- NOTE | 2018-05-10 07:56 | PN ---
Progress Note, Physician Chief Complaint: Pt lying in bed,tiredness,mild fever,lack of appetitie still present,T max 100.2 anemia present,hypomagnesemia Ct abdomen and pelvis shows colonic mass Peripheral smear shows babesiosis Gi,ID,Oncology,endocrine F/u appreciated Hypokalemia imporoved hyponatremia present Elevated LFT,low Platelet blood cul and urine cul negative stool guiac negative - Current Medication List Current Medications: Active Medications Acetaminophen (Tylenol -) 650 mg PO Q6H PRN PRN Reason: FEVER Last Admin: 05/09/18 00:59 Dose: 650 mg Amlodipine Besylate (Norvasc -) 5 mg PO DAILY [facility] Last Admin: 05/09/18 10:41 Dose: 5 mg Atorvastatin Calcium (Lipitor -) [address] [facility] Last Admin: 05/09/18 23:50 Dose: 10 mg Calcium Carbonate (Os-Jah 500mg -) 500 mg PO DAILY [facility] Last Admin: 05/09/18 10:41 Dose: 500 mg Sodium Chloride (Normal Saline -) 1,000 mls @ 75 mls/hr IV ASDIR [facility] Last Admin: 05/09/18 23:52 Dose: Not Given Doxycycline Hyclate 100 mg/ (Dextrose) 100 mls @ 100 mls/hr IVPB BID [facility] Last Admin: 05/09/18 22:04 Dose: 100 mls/hr Metformin HCl (Glucophage -) 500 mg PO 0700 [facility] Last Admin: 05/10/18 06:18 Dose: Not Given Metoclopramide HCl (Reglan -) 10 mg PO TIDAC [facility] Last Admin: 05/10/18 06:19 Dose: 10 mg Metoprolol Tartrate (Lopressor -) 50 mg PO HS [facility] Last Admin: 05/09/18 23:50 Dose: 50 mg Pantoprazole Sodium (Protonix -) 20 mg PO DAILY [facility] Last Admin: 05/09/18 10:41 Dose: 20 mg Valsartan (Diovan -) 160 mg PO DAILY [facility] Last Admin: 05/09/18 10:41 Dose: 160 mg - Objective Vital Signs: Vital Signs Temperature 100.2 F H 05/10/18 06:00 Pulse Rate 98 H 05/10/18 06:00 Respiratory Rate 22 05/10/18 06:00 Blood Pressure 114/65 05/10/18 06:00 O2 Sat by Pulse Oximetry (%) 97 05/09/18 21:00 Constitutional: Yes: No Distress Eyes: Yes: Conjunctiva Clear HENT: Yes: Atraumatic Neck: Yes: Supple Cardiovascular: Yes: Regular Rate and Rhythm Respiratory: Yes: Regular Gastrointestinal: Yes: Normal Bowel Sounds Musculoskeletal: Yes: WNL Extremities: Yes: WNL Edema: No Peripheral Pulses WNL: Yes Neurological: Yes: WNL, Alert, Oriented ...Motor Strength: WNL Psychiatric: Yes: WNL, Alert Labs: CBC, BMP 05/10/18 06:30 INR, PTT INR 1.36 (0.83-1.09) H 05/08/18 08:00 - ....Imaging Cat Scan: Report Reviewed Assessment/Plan colonic mass Babesiosis hypomagnesemia ,hyponatremia POOR appetite, and po intake Elevated LFT,low platelet Fatigue, generalised weakness DM PLAN Antibiotics as per ID GI F/u Continue Metformin,metoprolol and amlodipine mg suppliment and Calcium suppliment will monitor labs endocrine ,hematology f/u
[2018-05-10 08:35] LABS: CHLORIDE 95 mmol/L (98-107); POTASSIUM 3.5 mmol/L (3.5-5.1); SODIUM 128 mmol/L (136-145)
[2018-05-10 08:48] LABS: ALBUMIN 2.1 g/dl (3.4-5.0); ALK PHOS 85 U/L (45-117); ANION GAP 9 MMOL/L (8-16); BILIRUBIN,DIRECT 0.4 mg/dL (0.0-0.2); BLOOD UREA NITROGEN 10 mg/dL (7-18); CALCIUM 7.2 mg/dL (8.5-10.1); CO2 24 mmol/L (21-32); CREATININE 0.6 mg/dL (0.55-1.02); GLUCOSE,RANDOM 128 mg/dL (74-106); MAGNESIUM 1.5 mg/dL (1.8-2.4); SGOT/AST 107 U/L (15-37); SGPT/ALT 80 U/L (12-78); TOT PROT 5.9 g/dl (6.4-8.2)
[2018-05-10] MEDS ORDERED: MAGNESIUM OXIDE 400 MG TABLET (FP) PO ONE (09:44)
[2018-05-10 09:55] LABS: ACANTHOCYTES 0; ANISOCYTOSIS 0; HELMET CELLS 0; HOWELL-JOLLY BODIES 0; MACROCYTOSIS 0; OVALOCYTE 0; PLATELET ESTIMATE DECREASED; ROULEAU 0; SICKELED CELLS 0; TARGET CELLS 0; TEAR DROP CELLS 0; TOXIC GRANULATION 0
[2018-05-10 10:11] LABS: ALPHA 2 MACROGLOBULINS,QN 252 mg/dL (110-276); ALT(SGPT)P5P 56 IU/L (0-40); CHOLESTEROL TOTAL 66 mg/dL (100-199); GGT= 20 IU/L (0-60); GLUCOSE SERUM 114 mg/dL (65-99); HEIGHT 60 in (.); WEIGHT- 129 LBS (.)
--- NOTE | 2018-05-10 10:26 | PN ---
Physical Exam: SUBJECTIVE: Patient seen and examined at bed side. Complaining of shortness of breath on exertion. Denies chest pain, palpitations, abdominal pain. Low appetite. Tmax 100.2 F overnight. OBJECTIVE: Vital Signs Period Temp Pulse Resp BP Sys/De Jesus Pulse Ox Last 24 Hr 98.1 F-100.2 F 98-134 19-24 114-145/65-93 97-97 GENERAL: Elderly female, sitting comfortably in bed, looks tired, Awake, alert, and fully oriented, in no acute distress. HEAD: Normal with no signs of trauma. EYES: EOM intact, pallor +, no icterus. EARS, NOSE, THROAT: Ears normal. Dry mucous membranes. NECK: Supple. BREAST EXAM 05/09/18: Normal, no nodules palpated AXILLA: No axillary lymph nodes palpated. LUNGS: B/L Breath sounds equal, clear to auscultation bilaterally. No wheezes, and no crackles. No accessory muscle use. HEART: Tachycardic, Regular rate and rhythm, normal S1 and S2 with soft systolic murmur. ABDOMEN: Soft, nontender, no organomegaly. MUSCULOSKELETAL: Normal range of motion at all joints. No bony deformities or tenderness. No CVA tenderness. UPPER EXTREMITIES: 2+ pulses, warm, well-perfused. No cyanosis. No clubbing. Cap refill <2 seconds. No peripheral edema. LOWER EXTREMITIES: Pigmentation below the knee, 2+ pulses, warm, well-perfused. No calf tenderness. No peripheral edema. NEUROLOGICAL: No facial droop, Power 5/5 in all extremities, sensation intact, Cranial nerves II-XII intact. Normal speech. Gait not observed. PSYCHIATRIC: Cooperative. Good eye contact. Appropriate mood and affect. SKIN: Warm, dry, normal turgor, no rashes or lesions noted. Laboratory Results - last 24 hr 05/08/18 05/09/18 05/09/18 08:00 07:00 12:06 WBC RBC Hgb Hct MCV MCH MCHC RDW Plt Count MPV Absolute Neuts (auto) Neutrophils % Neutrophils % (Manual) 61.2 Band Neutrophils % 2.1 Lymphocytes % Lymphocytes % (Manual) 15.3 D Monocytes % Monocytes % (Manual) 21 H Eosinophils % Eosinophils % (Manual) 0.0 Basophils % Basophils % (Manual) 0.0 Myelocytes % (Man) 0 Promyelocytes % (Man) 0 Blast Cells % (Manual) 0 Nucleated RBC % Metamyelocytes 0 Hypochromia 0 Platelet Estimate Decreased Polychromasia 1+ Poikilocytosis 0 Anisocytosis 1+ Microcytosis 1+ Macrocytosis 1+ Target Cells 1+ Ovalocytes 1+ Retic Count Haptoglobin <10 L Sodium Potassium Chloride Carbon Dioxide Anion Gap BUN Creatinine Creat Clearance w eGFR Glucose 114 H POC Glucometer 174 Random Glucose Calcium Magnesium Total Bilirubin 1.0 Direct Bilirubin GGT 20 AST 71 H ALT 56 H Alkaline Phosphatase Liver Fibrosis Score TNP Liver Fibrosis Stage Liver Steatosis Score TNP Liver Steatosis Grade TNP LD Total C-Reactive Protein Total Protein Albumin Ofkzg-[id number] 252 Triglycerides 174 H Cholesterol 66 L Apolipoprotein A-1 33 L Patient Height (cm) 60 Patient Weight (kg) 129 CSF IgG Interpretation TNP Stool Occult Blood DONALDO Screen Positive H DONALDO Homogeneous Pattern TNP DONALDO Nucleolar Pattern TNP DONALDO Spindle Isatu Pattern TNP DONALDO Midbody Pattern TNP DONALDO Centriole Pattern TNP DONALDO Nuclear Dot Pattern TNP DONALDO PCNA Pattern TNP DONALDO Nuclear Membr Pat TNP DONALDO Speckled Pattern 1:80 DONALDO Centromere Pattern TNP Smooth Musc &GROUP CIO Intrp 33 H Hep A IgM Ab Confirm Negative Hepatitis A Ab Total Positive H Hep Bs Antigen Negative Hep Bs Antibody Reactive Hep B Core Total Ab Positive H Monoscreen 05/09/18 05/09/18 05/09/18 14:25 16:54 18:00 WBC RBC Hgb Hct MCV MCH MCHC RDW Plt Count MPV Absolute Neuts (auto) Neutrophils % Neutrophils % (Manual) Band Neutrophils % Lymphocytes % Lymphocytes % (Manual) Monocytes % Monocytes % (Manual) Eosinophils % Eosinophils % (Manual) Basophils % Basophils % (Manual) Myelocytes % (Man) Promyelocytes % (Man) Blast Cells % (Manual) Nucleated RBC % Metamyelocytes Hypochromia Platelet Estimate Polychromasia Poikilocytosis Anisocytosis Microcytosis Macrocytosis Target Cells Ovalocytes Retic Count 2.00 H Haptoglobin Sodium Potassium Chloride Carbon Dioxide Anion Gap BUN Creatinine Creat Clearance w eGFR Glucose POC Glucometer 131 Random Glucose Calcium Magnesium Total Bilirubin Direct Bilirubin GGT AST ALT Alkaline Phosphatase Liver Fibrosis Score Liver Fibrosis Stage Liver Steatosis Score Liver Steatosis Grade LD Total C-Reactive Protein Total Protein Albumin Goihh-7-Cvasdubpgixsv Triglycerides Cholesterol Apolipoprotein A-1 Patient Height (cm) Patient Weight (kg) CSF IgG Interpretation Stool Occult Blood Negative DONALDO Screen DONALDO Homogeneous Pattern DONALDO Nucleolar Pattern DONALDO Spindle Isatu Pattern DONALDO Midbody Pattern DONALDO Centriole Pattern DONALDO Nuclear Dot Pattern DONALDO PCNA Pattern DONALDO Nuclear Membr Pat DONALDO Speckled Pattern DONALDO Centromere Pattern Smooth Musc &GROUP CIO Intrp Hep A IgM Ab Confirm Hepatitis A Ab Total Hep Bs Antigen Hep Bs Antibody Hep B Core Total Ab Monoscreen 05/09/18 05/09/18 05/10/18 18:00 18:00 05:55 WBC RBC Hgb Hct MCV MCH MCHC RDW Plt Count MPV Absolute Neuts (auto) Neutrophils % Neutrophils % (Manual) Band Neutrophils % Lymphocytes % Lymphocytes % (Manual) Monocytes % Monocytes % (Manual) Eosinophils % Eosinophils % (Manual) Basophils % Basophils % (Manual) Myelocytes % (Man) Promyelocytes % (Man) Blast Cells % (Manual) Nucleated RBC % Metamyelocytes Hypochromia Platelet Estimate Polychromasia Poikilocytosis Anisocytosis Microcytosis Macrocytosis Target Cells Ovalocytes Retic Count Haptoglobin Sodium Potassium Chloride Carbon Dioxide Anion Gap BUN Creatinine Creat Clearance w eGFR Glucose POC Glucometer 138 Random Glucose Calcium Magnesium Total Bilirubin Direct Bilirubin GGT AST ALT Alkaline Phosphatase Liver Fibrosis Score Liver Fibrosis Stage Liver Steatosis Score Liver Steatosis Grade LD Total 788 H C-Reactive Protein Total Protein Albumin Zvzno-1-Sbsmlleqhxynt Triglycerides Cholesterol Apolipoprotein A-1 Patient Height (cm) Patient Weight (kg) CSF IgG Interpretation Stool Occult Blood DONALDO Screen DONALDO Homogeneous Pattern DONALDO Nucleolar Pattern DONALDO Spindle Isatu Pattern DONALDO Midbody Pattern DONALDO Centriole Pattern DONALDO Nuclear Dot Pattern DONALDO PCNA Pattern DONALDO Nuclear Membr Pat DONALDO Speckled Pattern DONALDO Centromere Pattern Smooth Musc &GROUP CIO Intrp Hep A IgM Ab Confirm Hepatitis A Ab Total Hep Bs Antigen Hep Bs Antibody Hep B Core Total Ab Monoscreen Positive 1:1 05/10/18 05/10/18 05/10/18 06:00 06:30 06:30 WBC 4.2 RBC 3.27 L Hgb 9.2 L Hct 26.8 L MCV 82.0 MCH 28.1 MCHC 34.3 RDW 15.7 H Plt Count 59 L MPV 8.8 Absolute Neuts (auto) 2.2 Neutrophils % 52.7 Neutrophils % (Manual) Band Neutrophils % Lymphocytes % 23.5 Lymphocytes % (Manual) Monocytes % 23.1 H Monocytes % (Manual) Eosinophils % 0.2 Eosinophils % (Manual) Basophils % 0.5 Basophils % (Manual) Myelocytes % (Man) Promyelocytes % (Man) Blast Cells % (Manual) Nucleated RBC % 0 Metamyelocytes Hypochromia Platelet Estimate Polychromasia Poikilocytosis Anisocytosis Microcytosis Macrocytosis Target Cells Ovalocytes Retic Count Haptoglobin Sodium 128 L Potassium 3.5 Chloride 95 L Carbon Dioxide 24 Anion Gap 9 BUN 10 Creatinine 0.6 Creat Clearance w eGFR > 60 Glucose POC Glucometer Random Glucose 128 H Calcium 7.2 L Magnesium 1.5 L Total Bilirubin 1.0 Direct Bilirubin 0.4 H GGT AST 107 H ALT 80 H Alkaline Phosphatase 85 D Liver Fibrosis Score Liver Fibrosis Stage Liver Steatosis Score Liver Steatosis Grade LD Total C-Reactive Protein 7.9 H Total Protein 5.9 L Albumin 2.1 L Qffkp-0-Ikzqefsdaqfgl Triglycerides Cholesterol Apolipoprotein A-1 Patient Height (cm) Patient Weight (kg) CSF IgG Interpretation Stool Occult Blood Negative DONALDO Screen DONALDO Homogeneous Pattern DONALDO Nucleolar Pattern DONALDO Spindle Isatu Pattern DONALDO Midbody Pattern DONALDO Centriole Pattern DONALDO Nuclear Dot Pattern DONALDO PCNA Pattern DONALDO Nuclear Membr Pat DONALDO Speckled Pattern DONALDO Centromere Pattern Smooth Musc &GROUP CIO Intrp Hep A IgM Ab Confirm Hepatitis A Ab Total Hep Bs Antigen Hep Bs Antibody Hep B Core Total Ab Monoscreen 05/10/18 06:30 WBC RBC Hgb Hct MCV MCH MCHC RDW Plt Count MPV Absolute Neuts (auto) Neutrophils % Neutrophils % (Manual) Band Neutrophils % Lymphocytes % Lymphocytes % (Manual) Monocytes % Monocytes % (Manual) Eosinophils % Eosinophils % (Manual) Basophils % Basophils % (Manual) Myelocytes % (Man) Promyelocytes % (Man) Blast Cells % (Manual) Nucleated RBC % Metamyelocytes Hypochromia Platelet Estimate Polychromasia Poikilocytosis Anisocytosis Microcytosis Macrocytosis Target Cells Ovalocytes Retic Count Haptoglobin Sodium Potassium Chloride Carbon Dioxide Anion Gap BUN Creatinine Creat Clearance w eGFR Glucose POC Glucometer Random Glucose Calcium Magnesium Total Bilirubin Cancelled Direct Bilirubin Cancelled GGT AST Cancelled ALT Cancelled Alkaline Phosphatase Cancelled Liver Fibrosis Score Liver Fibrosis Stage Liver Steatosis Score Liver Steatosis Grade LD Total C-Reactive Protein Cancelled Total Protein Cancelled Albumin Cancelled Uqyow-3-Hgycyhxhjahnc Triglycerides Cholesterol Apolipoprotein A-1 Patient Height (cm) Patient Weight (kg) CSF IgG Interpretation Stool Occult Blood DONALDO Screen DONALDO Homogeneous Pattern DONALDO Nucleolar Pattern DONALDO Spindle Isatu Pattern DONALDO Midbody Pattern DONALDO Centriole Pattern DONALDO Nuclear Dot Pattern DONALDO PCNA Pattern DONALDO Nuclear Membr Pat DONALDO Speckled Pattern DONALDO Centromere Pattern Smooth Musc &GROUP CIO Intrp Hep A IgM Ab Confirm Hepatitis A Ab Total Hep Bs Antigen Hep Bs Antibody Hep B Core Total Ab Monoscreen Active Medications Generic Name Dose Route Start Last Admin Trade Name Freq PRN Reason Stop Dose Admin Acetaminophen 650 mg 05/06/18 23:39 05/09/18 00:59 Tylenol - PO 650 mg Q6H PRN Administration FEVER Amlodipine Besylate 5 mg 05/07/18 10:00 05/09/18 10:41 Norvasc - PO 5 mg DAILY KAMILAH Administration Atorvastatin Calcium 10 mg 05/07/18 22:00 05/09/18 23:50 Lipitor - PO 10 mg HS KAMILAH Administration Calcium Carbonate 500 mg 05/08/18 10:00 05/09/18 10:41 Os-Jah 500mg - PO 500 mg DAILY KAMILAH Administration Sodium Chloride 1,000 mls @ 75 mls/hr 05/06/18 23:45 05/09/18 23:52 Normal Saline - IV Not Given ASDIR KAMILAH Doxycycline Hyclate 100 mg/ 100 mls @ 100 mls/hr 05/09/18 22:00 05/09/18 22: 04 Dextrose IVPB 100 mls/hr BID KAMILAH Administration Metformin HCl 500 mg 05/07/18 07:00 05/10/18 06:18 Glucophage - PO Not Given 0700 KAMILAH Metoclopramide HCl 10 mg 05/10/18 07:00 05/10/18 06:19 Reglan - PO 10 mg TIDAC KAMILAH Administration Metoprolol Tartrate 50 mg 05/07/18 22:00 05/09/18 23:50 Lopressor - PO 50 mg HS KAMILAH Administration Pantoprazole Sodium 20 mg 05/07/18 15:30 05/09/18 10:41 Protonix - PO 20 mg DAILY KAMILAH Administration Valsartan 160 mg 05/07/18 10:00 05/09/18 10:41 Diovan - PO 160 mg DAILY KAMILAH Administration ASSESSMENT/PLAN: Patient is a 72 year old female, new patient to [facility], with past medical history of Hyperlipidemia, DM, UTI, Labile HTN; Diastolic dysfunction; History of chest pain syndrome, Diverticulosis was sent by her PCP (Dr. Werner) for evaluation of weakness and low appetite. 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 Thrombocytopenia Normocytic anemia Labile Hypertension Hyperlipidemia DM- A1c done 2 weeks ago was 6.5 as per the patient. Diastolic dysfunction H/o Chest pain syndrome- No active chest pain PLAN: # Hemolysis Although corrected reticulocyte count is 1.6, it is compatible with hemolysis given Low haptoglobulin, High LDH -likely secondary to babesia. Will repeat LDH, Reticulocyte count and order a Kwadwo test in the morning. Will monitor. # Thrombocytopenia-Unknown if it is acute or chronic Platelet count 77 on admission---> 66--->59 today Likely secondary to infection (underlying babesia) vs antibiotic use vs liver disease. # Normocytic anemia H/H 10.3/30.6--->9.2/26.8, no signs of active bleed. Ferritin high d/t reactive, related to liver disease, babesia. normal iron, TIBC is low compatible with chronic illness ? liver disease ? other Undergoing Colonoscopy on 05/12/2018, as per GI team # Reverse A/G ratio-r/o dysproteinemia or possible polyclonal gammopathy secondary to underlying liver disease. UPEP, IPEP, SPEP, quantitative immunoglobulins sent # Monocytosis Could be due to liver disease or infectious-viral or malignant. Will observe and consider flow cytometry. Will need to review peripheral smear. Rest as per primary. Plan of care discussed with the patient and her . They verbalized understanding. Case discussed with Dr. Castellanos. Dispo: We will continue to follow the patient. Thank you for this consultative opportunity. Visit type - Emergency Visit Emergency Visit: Yes ED Registration Date: 05/06/18 Care time: The patient presented to the Emergency Department on the above date and was hospitalized for further evaluation of their emergent condition. - New Patient This patient is new to me today: No - Critical Care Critical Care patient: No
[2018-05-10] MEDS ORDERED: PT OWN MED DRAWER 7, Y5N ONE (11:06)
[2018-05-10] MEDS: CALCIUM (OYSTER SHELL) 500 MG TABLET (FP) PO SCH (11:09)
[2018-05-10] MEDS: PANTOPRAZOLE 20 MG TABLET (FP) PO SCH (11:09)
[2018-05-10] MEDS: amLODIPine BESYLATE 5 MG TABLET (FP) PO SCH (11:09)
[2018-05-10] MEDS: VALSARTAN 160 MG TABLET (UD) PO SCH (11:09)
[2018-05-10] MEDS: DOXYCYCLINE INJECTION 100 MG in DEXTROSE 5%-WATER - 100 ML IVPB SCH ×2 (11:10→21:18)
--- NOTE | 2018-05-10 11:31 | PN ---
Progress Note (short form) - Note Progress Note: Feels tired Sodium 128 today Vital Signs Period Temp Pulse Resp BP Sys/De Jesus Pulse Ox Last 24 Hr 98.1 F-100.2 F 98-134 19-24 114-145/65-93 97 PE: AOx3 Neck: Supple, No JVD HEENT: EOMI Lungs: CTA CVs: S1S2 Abd: Benign Ext: No edema Neuro: No focal deficit CMP Sodium 128 mmol/L (136-145) L 05/10/18 06:30 Potassium 3.5 mmol/L (3.5-5.1) 05/10/18 06:30 Chloride 95 mmol/L (98-107) L 05/10/18 06:30 Carbon Dioxide 24 mmol/L (21-32) 05/10/18 06:30 Anion Gap 9 MMOL/L (8-16) 05/10/18 06:30 BUN 10 mg/dL (7-18) 05/10/18 06:30 Creatinine 0.6 mg/dL (0.55-1.02) 05/10/18 06:30 Creat Clearance w eGFR > 60 (>60) 05/10/18 06:30 Glucose 114 mg/dL (65-99) H 05/08/18 08:00 POC Glucometer 138 UNITS (80-120) 05/10/18 05:55 Random Glucose 128 mg/dL (74-106) H 05/10/18 06:30 Calcium 7.2 mg/dL (8.5-10.1) L 05/10/18 06:30 Magnesium 1.5 mg/dL (1.8-2.4) L 05/10/18 06:30 Iron 38 ug/dL (27-139) 05/08/18 08:00 TIBC 191 ug/dL (250-450) L 05/08/18 08:00 Iron Saturation 20 % (15-55) 05/08/18 08:00 Ferritin 1488.0 ng/ml (6.9-282.5) H 05/08/18 08:00 Total Bilirubin 1.0 mg/dL (0.2-1.0) 05/10/18 06:30 Direct Bilirubin 0.4 mg/dL (0.0-0.2) H 05/10/18 06:30 GGT 20 IU/L (0-60) 05/08/18 08:00 AST 107 U/L (15-37) H 05/10/18 06:30 ALT 80 U/L (12-78) H 05/10/18 06:30 Alkaline Phosphatase 85 U/L (45-117) D 05/10/18 06:30 Liver Fibrosis Score TNP 05/08/18 08:00 Liver Fibrosis Stage (.) 05/08/18 08:00 Liver Steatosis Score TNP 05/08/18 08:00 Liver Steatosis Grade TNP 05/08/18 08:00 LD Total 788 U/L (84-246) H 05/09/18 18:00 C-Reactive Protein 7.9 MG/DL (0.00-0.3) H 05/10/18 06:30 Total Protein 5.9 g/dl (6.4-8.2) L 05/10/18 06:30 Albumin 2.1 g/dl (3.4-5.0) L 05/10/18 06:30 Yidoq-2-Uupljnnrisofl 252 mg/dL (110-276) 05/08/18 08:00 Triglycerides 174 mg/dL (0-149) H 05/08/18 08:00 Cholesterol 66 mg/dL (100-199) L 05/08/18 08:00 Apolipoprotein A-1 33 mg/dL (116-209) L 05/08/18 08:00 Total Amylase 55 U/L (25-115) 05/08/18 08:00 Lipase 289 U/L (73-393) 05/08/18 08:00 Patient Height (cm) 60 in (.) 05/08/18 08:00 Patient Weight (kg) 129 LBS (.) 05/08/18 08:00 Current Medications Generic Name Dose Route Start Last Admin Trade Name Freq PRN Reason Stop Dose Admin Acetaminophen 650 mg 05/06/18 23:39 05/09/18 00:59 Tylenol - PO 650 mg Q6H PRN Administration FEVER Amlodipine Besylate 5 mg 05/07/18 10:00 05/10/18 11:09 Norvasc - PO 5 mg DAILY KAMILAH Administration Atorvastatin Calcium 10 mg 05/07/18 22:00 05/09/18 23:50 Lipitor - PO 10 mg HS KAMILAH Administration Calcium Carbonate 500 mg 05/08/18 10:00 05/10/18 11:09 Os-Jah 500mg - PO 500 mg DAILY KAMILAH Administration Sodium Chloride 1,000 mls @ 75 mls/hr 05/06/18 23:45 05/09/18 23:52 Normal Saline - IV Not Given ASDIR KAMILAH Doxycycline Hyclate 100 mg/ 100 mls @ 100 mls/hr 05/09/18 22:00 05/10/18 11: 10 Dextrose IVPB 100 mls/hr BID KAMILAH Administration Metformin HCl 500 mg 05/07/18 07:00 05/10/18 06:18 Glucophage - PO Not Given 0700 KAMILAH Metoclopramide HCl 10 mg 05/10/18 07:00 05/10/18 11:09 Reglan - PO 10 mg TIDAC KAMILAH Administration Metoprolol Tartrate 50 mg 05/07/18 22:00 05/09/18 23:50 Lopressor - PO 50 mg HS KAMILAH Administration Pantoprazole Sodium 20 mg 05/07/18 15:30 05/10/18 11:09 Protonix - PO 20 mg DAILY KAMILAH Administration Valsartan 160 mg 05/07/18 10:00 05/10/18 11:09 Diovan - PO 160 mg DAILY KAMILAH Administration AP; UTI T2DM Hypokalemia,Hyponatremia: Na 128 Corrected Ca 8.6 Elevated LFT, Thrombocytopenia Fatigue Off HCTZ starting today. Repeat electrolytes off HCTZ Hyponatremia/Hypokalemia/Hypomagnesemia compatible with HCTZ use Increase dose of antihypertensive medications if necessary to control blood pressure. Pt denies any h/o Edema or CAM GI cosult noted: W/U to r/o maignancy in progress. Will F/U
--- NOTE | 2018-05-10 12:37 | PN ---
Progress Note (short form) - Note Progress Note: still weak and tired lowgrade fever Vital Signs Period Temp Pulse Resp BP Sys/De Jesus Pulse Ox Last 24 Hr 98.1 F-100.2 F 98-134 19-24 114-145/65-93 97 cor-rrr lungs clear abd soft,nt ext no edema CBC, BMP 05/10/18 06:30 05/10/18 06:30 Microbiology 05/09/18 18:00 Blood - Peripheral Venous Blood Parasites Smear - Final Babesia Species 05/06/18 21:25 Blood - Peripheral Venous Blood Culture - Preliminary NO GROWTH OBTAINED AFTER 72 HOURS, INCUBATION TO CONTINUE FOR 2 DAYS. 05/06/18 21:25 Blood - Peripheral Venous Blood Culture - Preliminary NO GROWTH OBTAINED AFTER 72 HOURS, INCUBATION TO CONTINUE FOR 2 DAYS. 05/06/18 17:00 Urine - Urine Clean Catch Urine Culture - Final NO GROWTH OBTAINED 05/06/18 15:46 Throat Throat Culture - Final NO BETA HEMOLYTIC STREPTOCOCCI ISOLATED 05/06/18 15:46 Throat Group A Strep Rapid Antigen - Final 05/06/18 20:46 Nasopharyngeal Swab Influenza Types A,B Antigen - Final 05/06/18 20:46 Nasopharyngeal Swab - Final Laboratory Tests 05/08/18 05/09/18 05/09/18 08:00 18:00 18:00 Retic Count 2.00 H Haptoglobin <10 L LD Total 788 H a/p FUO babesiosis +hemolytic anemia r/o other coinfections ct scan noted- +colon cancer start zithromax/mepron for babesia continue doxycycline for possible coinfection (lyme, anaplasma, ehrlichia)
--- NOTE | 2018-05-10 12:41 | PN ---
GI Progress Note Subjective: GI NOte: I have informed Fatmata that he CT scan reveals a likely carcinoma in the right colon. I have discussed colonoscopy in detail and informed to the risks of perforation and hemorrhage. She has granted an informed consent. I have scheduled it for 05/12/18. Babesiosis diagnosis discussed with Dr Monroe. It appears to also be causing hemolysis - Objective Vital Signs: Vital Signs Temperature 100.2 F H 05/10/18 06:00 Pulse Rate 98 H 05/10/18 06:00 Respiratory Rate 22 05/10/18 06:00 Blood Pressure 114/65 05/10/18 06:00 O2 Sat by Pulse Oximetry (%) 97 05/09/18 21:00 Constitutional: Anxious ...Auscultate: Yes: Normoactive Bowel Sounds ...Palpate: Yes: Soft, Other (nontender) Labs: CBC, BMP 05/10/18 06:30 05/10/18 06:30 INR, PTT INR 1.36 (0.83-1.09) H 05/08/18 08:00 Assessment/Plan Colonoscopy on 05/12 Dr Monroe is initiating therapy for babesiosis Problem List - Problems (1) Abnormal LFTs (liver function tests) Code(s): R94.5 - ABNORMAL RESULTS OF LIVER FUNCTION STUDIES (2) Abdominal pain Assessment/Plan: Will prep for colonosocpy oon 05/12. Discussed with Dr Miles Code(s): R10.9 - UNSPECIFIED ABDOMINAL PAIN (3) Diverticula of colon Code(s): K57.30 - DVRTCLOS OF LG INT W/O PERFORATION OR ABSCESS W/O BLEEDING (4) Diabetes 1.5, managed as type 2 Code(s): E10.9 - TYPE 1 DIABETES MELLITUS WITHOUT COMPLICATIONS (5) Hypertension Code(s): I10 - ESSENTIAL (PRIMARY) HYPERTENSION Qualifiers: Qualified Code(s): I10 - Essential (primary) hypertension (6) Hyperlipidemia associated with type 2 diabetes mellitus Code(s): E11.69 - TYPE 2 DIABETES MELLITUS WITH OTHER SPECIFIED COMPLICATION; E78.5 - HYPERLIPIDEMIA, UNSPECIFIED (7) Nausea Code(s): R11.0 - NAUSEA (8) Poor appetite Code(s): R63.0 - ANOREXIA
--- NOTE | 2018-05-10 14:39 | PN ---
Progress Note, Physician History of Present Illness: Low grade fevers, reactive sinus tachycardia noted. - Current Medication List Current Medications: Active Medications Acetaminophen (Tylenol -) 650 mg PO Q6H PRN PRN Reason: FEVER Last Admin: 05/09/18 00:59 Dose: 650 mg Amlodipine Besylate (Norvasc -) 5 mg PO DAILY [facility] Last Admin: 05/10/18 11:09 Dose: 5 mg Atorvastatin Calcium (Lipitor -) 10 mg PO [facility] Last Admin: 05/09/18 23:50 Dose: 10 mg Atovaquone (Mepron -) 750 mg PO BID [facility] Bisacodyl (Dulcolax -) 20 mg PO ONCE ONE Stop: 05/11/18 18:01 Calcium Carbonate (Os-Jah 500mg -) 500 mg PO DAILY [facility] Last Admin: 05/10/18 11:09 Dose: 500 mg Sodium Chloride (Normal Saline -) 1,000 mls @ 75 mls/hr IV ASDIR [facility] Last Admin: 05/09/18 23:52 Dose: Not Given Doxycycline Hyclate 100 mg/ (Dextrose) 100 mls @ 100 mls/hr IVPB BID [facility] Last Admin: 05/10/18 11:10 Dose: 100 mls/hr Azithromycin 500 mg/ Dextrose 250 mls @ 250 mls/hr IVPB DAILY [facility] Metformin HCl (Glucophage -) 500 mg PO 0700 [facility] Last Admin: 05/10/18 06:18 Dose: Not Given Metoprolol Tartrate (Lopressor -) 50 mg PO [facility] Last Admin: 05/09/18 23:50 Dose: 50 mg Pantoprazole Sodium (Protonix -) 20 mg PO DAILY [facility] Last Admin: 05/10/18 11:09 Dose: 20 mg Valsartan (Diovan -) 160 mg PO DAILY [facility] Last Admin: 05/10/18 11:09 Dose: 160 mg - Objective Vital Signs: Vital Signs Temperature 98.3 F 05/10/18 09:00 Pulse Rate 110 H 05/10/18 13:32 Respiratory Rate 18 05/10/18 09:00 Blood Pressure 153/76 05/10/18 09:00 O2 Sat by Pulse Oximetry (%) 97 05/10/18 09:00 Constitutional: Yes: No Distress, Calm Neck: Yes: Supple Cardiovascular: Yes: Regular Rate and Rhythm Respiratory: Yes: Regular, Diminished Gastrointestinal: Yes: Normal Bowel Sounds, Soft, Abdomen, Obese Edema: No Labs: CBC, BMP 05/10/18 06:30 05/10/18 06:30 INR, PTT INR 1.36 (0.83-1.09) H 05/08/18 08:00 Problem List - Problems (1) Diastolic dysfunction Code(s): I51.9 - HEART DISEASE, UNSPECIFIED (2) Abnormal LFTs (liver function tests) Code(s): R94.5 - ABNORMAL RESULTS OF LIVER FUNCTION STUDIES (3) Fatigue Code(s): R53.83 - OTHER FATIGUE Qualifiers: Fatigue type: unspecified Qualified Code(s): R53.83 - Other fatigue (4) Hyperlipidemia associated with type 2 diabetes mellitus Code(s): E11.69 - TYPE 2 DIABETES MELLITUS WITH OTHER SPECIFIED COMPLICATION; E78.5 - HYPERLIPIDEMIA, UNSPECIFIED (5) Hypertension Code(s): I10 - ESSENTIAL (PRIMARY) HYPERTENSION Qualifiers: Hypertension type: essential hypertension Qualified Code(s): I10 - Essential (primary) hypertension (6) Poor appetite Code(s): R63.0 - ANOREXIA (7) Diabetic gastroparesis Code(s): E11.43 - TYPE 2 DIABETES W DIABETIC AUTONOMIC (POLY)NEUROPATHY; K31.84 - GASTROPARESIS (8) Babesiosis Code(s): B60.0 - BABESIOSIS (9) Fever of unknown origin (FUO) Code(s): R50.9 - FEVER, UNSPECIFIED Assessment/Plan MPI December 28, 2016 Mild inferoapical ischemia, LVEF 83% Echo December 28, 2016 Normal LV size and fxn, mild-mod MR, mild TR Holter December 28, 2017: SR with rare supraventricular and ventricular ectopic 1. 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 Dyspepsia and nausea referable to diabetic vs viral gastroparesis 3. Hemolytic anemia 4. Labile HTN 5. Diastolic dysfunction 6. Type 2 DM 7. Hyperlipidemia 8. H/o chest pain syndrome P:1. Complete empiric abx course 2. Placed on Reglan and Protonix with improvement 3. Continue Toprol XL 25 qd, Norvasc 5 qd, Lipitor 10 qd, ASA 81 qd, valsartan 160 qd 4. F/u colonoscopy on Tuesday
[2018-05-10] MEDS: ATOVAQUONE 750 MG/5 ML (UNIT-DOSE PACKAGING) PO SCH ×2 (15:09→17:30)
[2018-05-10] MEDS: SODIUM CHLORIDE 1,000 ML IV SCH (15:10)
[2018-05-10] MEDS: ACETAMINOPHEN 325 MG TABLET (FP) PO PRN (17:30)
[2018-05-10] MEDS: AZITHROMYCIN IVPB 500 MG in DEXTROSE 5%-WATER - 250 ML IVPB SCH (17:30)
--- NOTE | 2018-05-10 18:53 | PN ---
Teaching Attending Note Name of Resident: Flaco Gabriel MD ATTENDING PHYSICIAN STATEMENT I saw and evaluated the patient. I reviewed the resident's note and discussed the case with the resident. I agree with the resident's findings and plan as documented. SUBJECTIVE: Unusual dual problem of colonic mass and bbesia Despite low retic count, evidence of hemolysis with elevated LDH and low haptoglobin. Will need to monitor. To have colonoscopy - on 05/12. OBJECTIVE: ASSESSMENT AND PLAN:
[2018-05-10] MEDS: ATORVASTATIN CA 10 MG TABLET (FP) PO SCH (21:18)
[2018-05-10] MEDS: METOPROLOL TARTRATE 50 MG TABLET (FP) PO SCH (21:18)
[2018-05-11] MEDS: ACETAMINOPHEN 325 MG TABLET (FP) PO PRN ×2 (05:40→17:20)
[2018-05-11] MEDS: SODIUM CHLORIDE 1,000 ML IV SCH ×2 (05:41→22:09)
[2018-05-11] MEDS: metFORMIN HCL 500 MG TABLET (FP) PO SCH (06:13)
--- NOTE | 2018-05-11 07:36 | PN ---
Progress Note, Physician Chief Complaint: Pt lying in bed,tiredness,mild fever,lack of appetitie still present,T max 101.2 ,c/o mild cough anemia present,Increase LDH hyponatremia,hypomagnesemia Ct abdomen and pelvis shows colonic mass Peripheral smear shows babesiosis Pt is on Zithromax,mepron,and Doxycycline Gi,ID,Oncology,endocrine F/u appreciated For colonoscopy tommorow blood cul and urine cul negative stool guiac negative - Current Medication List Current Medications: Active Medications Acetaminophen (Tylenol -) 650 mg PO Q6H PRN PRN Reason: FEVER Last Admin: 05/11/18 05:40 Dose: 650 mg Amlodipine Besylate (Norvasc -) 5 mg PO DAILY [facility] Last Admin: 05/10/18 11:09 Dose: 5 mg Atorvastatin Calcium (Lipitor -) 10 mg PO HS [facility] Last Admin: 05/10/18 21:18 Dose: 10 mg Atovaquone (Mepron -) 750 mg PO BIDWM [facility] Bisacodyl (Dulcolax -) 20 mg PO ONCE ONE Stop: 05/11/18 18:01 Calcium Carbonate (Os-Jah 500mg -) 500 mg PO DAILY [facility] Last Admin: 05/10/18 11:09 Dose: 500 mg Sodium Chloride (Normal Saline -) 1,000 mls @ 75 mls/hr IV ASDIR [facility] Last Admin: 05/11/18 05:41 Dose: 75 mls/hr Doxycycline Hyclate 100 mg/ (Dextrose) 100 mls @ 100 mls/hr IVPB BID [facility] Last Admin: 05/10/18 21:18 Dose: 100 mls/hr Azithromycin 500 mg/ Dextrose 250 mls @ 250 mls/hr IVPB DAILY [facility] Last Admin: 05/10/18 17:30 Dose: 250 mls/hr Metformin HCl (Glucophage -) 500 mg PO 0700 [facility] Last Admin: 05/11/18 06:13 Dose: Not Given Metoprolol Tartrate (Lopressor -) 50 mg PO HS [facility] Last Admin: 05/10/18 21:18 Dose: 50 mg Pantoprazole Sodium (Protonix -) 20 mg PO DAILY [facility] Last Admin: 05/10/18 11:09 Dose: 20 mg Valsartan (Diovan -) 160 mg PO DAILY [facility] Last Admin: 05/10/18 11:09 Dose: 160 mg - Objective Vital Signs: Vital Signs Temperature 99.2 F 05/11/18 06:48 Pulse Rate 111 H 05/11/18 06:10 Respiratory Rate 20 05/11/18 06:10 Blood Pressure 128/62 05/11/18 06:10 O2 Sat by Pulse Oximetry (%) 97 05/10/18 21:00 Constitutional: Yes: No Distress Eyes: Yes: Conjunctiva Clear HENT: Yes: Atraumatic Neck: Yes: Supple Cardiovascular: Yes: Regular Rate and Rhythm Respiratory: Yes: Regular, CTA Bilaterally Gastrointestinal: Yes: Normal Bowel Sounds, Soft Musculoskeletal: Yes: WNL Extremities: Yes: WNL Edema: No Peripheral Pulses WNL: Yes Neurological: Yes: WNL ...Motor Strength: WNL Psychiatric: Yes: WNL Labs: INR, PTT INR 1.36 (0.83-1.09) H 05/08/18 08:00 Laboratory Results - last 24 hr 05/08/18 05/09/18 05/10/18 08:00 18:00 06:30 WBC RBC Hgb Hct MCV MCH MCHC RDW Plt Count MPV Absolute Neuts (auto) Neutrophils % Neutrophils % (Manual) 59.6 Band Neutrophils % 0.0 Lymphocytes % Lymphocytes % (Manual) 19.2 D Monocytes % Monocytes % (Manual) 19 H Eosinophils % Eosinophils % (Manual) 0.0 Basophils % Basophils % (Manual) 0.0 Myelocytes % (Man) 1 D Promyelocytes % (Man) 0 Blast Cells % (Manual) 0 Nucleated RBC % Metamyelocytes 0 Hypochromia 0 Toxic Granulation 0 Dohle Bodies 0 Platelet Estimate Decreased Polychromasia 0 Poikilocytosis 0 Basophilic Stippling 0 Anisocytosis 0 Microcytosis 0 Macrocytosis 0 Spherocytes 0 Sickle Cells 0 Target Cells 0 Tear Drop Cells 0 Ovalocytes 0 Stomatocytes 0 Helmet Cells 0 [place] Bodies 0 Marcy Rings 0 Pantera Cells 0 Acanthocytes (Spur) 0 Rouleaux 0 Fragmented RBCs 0 Schistocytes 0 Retic Count Haptoglobin <10 L < 10 L Sodium Potassium Chloride Carbon Dioxide Anion Gap BUN Creatinine Creat Clearance w eGFR Glucose 114 H POC Glucometer Random Glucose Calcium Magnesium Total Bilirubin 1.0 GGT 20 AST 71 H ALT 56 H Alkaline Phosphatase Liver Fibrosis Score TNP Liver Fibrosis Stage Liver Steatosis Score TNP Liver Steatosis Grade TNP LD Total Total Protein Albumin [id number] 252 Triglycerides 174 H Cholesterol 66 L Apolipoprotein A-1 33 L Tumor Marker AFP Carcinoembryonic Ag CA 19-9 Antigen Patient Height (cm) 60 Patient Weight (kg) 129 CSF IgG Interpretation TNP IgG Direct Antiglob Test 05/10/18 05/10/18 05/11/18 06:30 06:30 06:30 WBC 3.3 L RBC 2.89 L Hgb 8.4 L Hct 23.7 L MCV 81.9 MCH 29.1 MCHC 35.5 RDW 15.6 Plt Count 65 L MPV 9.0 Absolute Neuts (auto) 1.6 Neutrophils % 47.3 Neutrophils % (Manual) Band Neutrophils % Lymphocytes % 26.6 Lymphocytes % (Manual) Monocytes % 25.2 H Monocytes % (Manual) Eosinophils % 0.5 D Eosinophils % (Manual) Basophils % 0.4 Basophils % (Manual) Myelocytes % (Man) Promyelocytes % (Man) Blast Cells % (Manual) Nucleated RBC % 0 Metamyelocytes Hypochromia Toxic Granulation Dohle Bodies Platelet Estimate Polychromasia Poikilocytosis Basophilic Stippling Anisocytosis Microcytosis Macrocytosis Spherocytes Sickle Cells Target Cells Tear Drop Cells Ovalocytes Stomatocytes Helmet Cells [place] Bodies Marcy Rings Pantera Cells Acanthocytes (Spur) Rouleaux Fragmented RBCs Schistocytes Retic Count Haptoglobin Sodium Potassium Chloride Carbon Dioxide Anion Gap BUN Creatinine Creat Clearance w eGFR Glucose POC Glucometer Random Glucose Calcium Magnesium Total Bilirubin GGT AST ALT Alkaline Phosphatase Liver Fibrosis Score Liver Fibrosis Stage Liver Steatosis Score Liver Steatosis Grade LD Total Total Protein Albumin [id number] Triglycerides Cholesterol Apolipoprotein A-1 Tumor Marker AFP < 0.7 Carcinoembryonic Ag 3.5 CA 19-9 Antigen 11 Patient Height (cm) Patient Weight (kg) CSF IgG Interpretation IgG 1372 Direct Antiglob Test 05/11/18 05/11/18 05/11/18 06:30 06:30 06:30 WBC RBC Hgb Hct MCV MCH MCHC RDW Plt Count MPV Absolute Neuts (auto) Neutrophils % Neutrophils % (Manual) Band Neutrophils % Lymphocytes % Lymphocytes % (Manual) Monocytes % Monocytes % (Manual) Eosinophils % Eosinophils % (Manual) Basophils % Basophils % (Manual) Myelocytes % (Man) Promyelocytes % (Man) Blast Cells % (Manual) Nucleated RBC % Metamyelocytes Hypochromia Toxic Granulation Dohle Bodies Platelet Estimate Polychromasia Poikilocytosis Basophilic Stippling Anisocytosis Microcytosis Macrocytosis Spherocytes Sickle Cells Target Cells Tear Drop Cells Ovalocytes Stomatocytes Helmet Cells [place] Bodies Marcy Rings Pantera Cells Acanthocytes (Spur) Rouleaux Fragmented RBCs Schistocytes Retic Count 3.01 H D Haptoglobin Sodium 131 L Potassium 3.1 L Chloride 99 Carbon Dioxide 22 Anion Gap 10 BUN 8 Creatinine 0.5 L Creat Clearance w eGFR > 60 Glucose POC Glucometer Random Glucose 123 H Calcium 7.2 L Magnesium 1.6 L Total Bilirubin 1.0 GGT AST 97 H ALT 83 H Alkaline Phosphatase 87 Liver Fibrosis Score Liver Fibrosis Stage Liver Steatosis Score Liver Steatosis Grade LD Total 733 H Total Protein 5.8 L Albumin 2.0 L [id number] Triglycerides Cholesterol Apolipoprotein A-1 Tumor Marker AFP Carcinoembryonic Ag CA 19-9 Antigen Patient Height (cm) Patient Weight (kg) CSF IgG Interpretation IgG Direct Antiglob Test Negative 05/11/18 06:45 WBC RBC Hgb Hct MCV MCH MCHC RDW Plt Count MPV Absolute Neuts (auto) Neutrophils % Neutrophils % (Manual) Band Neutrophils % Lymphocytes % Lymphocytes % (Manual) Monocytes % Monocytes % (Manual) Eosinophils % Eosinophils % (Manual) Basophils % Basophils % (Manual) Myelocytes % (Man) Promyelocytes % (Man) Blast Cells % (Manual) Nucleated RBC % Metamyelocytes Hypochromia Toxic Granulation Dohle Bodies Platelet Estimate Polychromasia Poikilocytosis Basophilic Stippling Anisocytosis Microcytosis Macrocytosis Spherocytes Sickle Cells Target Cells Tear Drop Cells Ovalocytes Stomatocytes Helmet Cells [place] Bodies Marcy Rings Pantera Cells Acanthocytes (Spur) Rouleaux Fragmented RBCs Schistocytes Retic Count Haptoglobin Sodium Potassium Chloride Carbon Dioxide Anion Gap BUN Creatinine Creat Clearance w eGFR Glucose POC Glucometer 139 Random Glucose Calcium Magnesium Total Bilirubin GGT AST ALT Alkaline Phosphatase Liver Fibrosis Score Liver Fibrosis Stage Liver Steatosis Score Liver Steatosis Grade LD Total Total Protein Albumin Ahiai-[id number] Triglycerides Cholesterol Apolipoprotein A-1 Tumor Marker AFP Carcinoembryonic Ag CA 19-9 Antigen Patient Height (cm) Patient Weight (kg) CSF IgG Interpretation IgG Direct Antiglob Test Assessment/Plan colonic mass Babesiosis anemia,thrombocytopenia,hemolysis elevated LFT POOR appetite, and po intake HTN,electrolyte imbalance Fatigue, generalised weakness DM PLAN Antibiotics as per ID GI F/u Continue Metformin,metoprolol and amlodipine mg suppliment and Calcium suppliment,k suppliment will monitor labs endocrine ,hematology f/u For colonoscopy tommorow
[2018-05-11 07:51] LABS: BASO % 0.4 % (0-2.0); EOS % 0.5 % (0-4.5); HEMATOCRIT 23.7 % (32.4-45.2); HEMOGLOBIN 8.4 GM/dL (10.7-15.3); LYMPH % 26.6 % (8-40); MCH 29.1 pg (25.7-33.7); MCHC 35.5 g/dl (32.0-36.0); MEAN CELL VOLUME 81.9 fl (80-96); MONO % 25.2 % (3.8-10.2); NEUT % 47.3 % (42.8-82.8); PLATELET COUNT 65 K/MM3 (134-434); RBC 2.89 M/mm3 (3.60-5.2); RDW 15.6 % (11.6-15.6); WHITE BLOOD COUNT 3.3 K/mm3 (4.0-10.0)
[2018-05-11 08:17] LABS: CARCINOEMBRYONIC ANTIGEN 3.5 ng/mL (0.0-4.7)
[2018-05-11 08:29] LABS: CHLORIDE 99 mmol/L (98-107); POTASSIUM 3.1 mmol/L (3.5-5.1); SODIUM 131 mmol/L (136-145)
[2018-05-11 08:34] LABS: ALK PHOS 87 U/L (45-117); ANION GAP 10 MMOL/L (8-16); BLOOD UREA NITROGEN 8 mg/dL (7-18); CALCIUM 7.2 mg/dL (8.5-10.1); CO2 22 mmol/L (21-32); CREATININE 0.5 mg/dL (0.55-1.02); GLUCOSE,RANDOM 123 mg/dL (74-106); LDH 733 U/L (84-246); MAGNESIUM 1.6 mg/dL (1.8-2.4); SGOT/AST 97 U/L (15-37); SGPT/ALT 83 U/L (13-61); TOT PROT 5.8 g/dl (6.4-8.2)
[2018-05-11] MEDS ORDERED: PEG3350/SOD SULF,BICARB,CL/KCL 4,000 ML SOLN.RECON PO ONE (09:00)
--- NOTE | 2018-05-11 09:11 | PN ---
Progress Note (short form) - Note Progress Note: Feels better Sodium 131 today Vital Signs Period Temp Pulse Resp BP Sys/De Jesus Pulse Ox Last 24 Hr 97.6 F-101.9 F 105-122 18-20 113-134/62-77 97 PE: AOx3 Neck: Supple, No JVD HEENT: EOMI Lungs: CTA CVs: S1S2 Abd: Benign Ext: No edema Neuro: No focal deficit CMP Sodium 131 mmol/L (136-145) L 05/11/18 06:30 Potassium 3.1 mmol/L (3.5-5.1) L 05/11/18 06:30 Chloride 99 mmol/L (98-107) 05/11/18 06:30 Carbon Dioxide 22 mmol/L (21-32) 05/11/18 06:30 Anion Gap 10 MMOL/L (8-16) 05/11/18 06:30 BUN 8 mg/dL (7-18) 05/11/18 06:30 Creatinine 0.5 mg/dL (0.55-1.02) L 05/11/18 06:30 Creat Clearance w eGFR > 60 (>60) 05/11/18 06:30 Glucose 114 mg/dL (65-99) H 05/08/18 08:00 POC Glucometer 139 UNITS (80-120) 05/11/18 06:45 Random Glucose 123 mg/dL (74-106) H 05/11/18 06:30 Calcium 7.2 mg/dL (8.5-10.1) L 05/11/18 06:30 Magnesium 1.6 mg/dL (1.8-2.4) L 05/11/18 06:30 Iron 38 ug/dL (27-139) 05/08/18 08:00 TIBC 191 ug/dL (250-450) L 05/08/18 08:00 Iron Saturation 20 % (15-55) 05/08/18 08:00 Ferritin 1488.0 ng/ml (6.9-282.5) H 05/08/18 08:00 Total Bilirubin 1.0 mg/dL (0.2-1.0) 05/11/18 06:30 Direct Bilirubin 0.4 mg/dL (0.0-0.2) H 05/10/18 06:30 GGT 20 IU/L (0-60) 05/08/18 08:00 AST 97 U/L (15-37) H 05/11/18 06:30 ALT 83 U/L (13-61) H 05/11/18 06:30 Alkaline Phosphatase 87 U/L (45-117) 05/11/18 06:30 Liver Fibrosis Score TNP 05/08/18 08:00 Liver Fibrosis Stage (.) 05/08/18 08:00 Liver Steatosis Score TN 05/08/18 08:00 Liver Steatosis Grade TN 05/08/18 08:00 LD Total 733 U/L (84-246) H 05/11/18 06:30 C-Reactive Protein 7.9 MG/DL (0.00-0.3) H 05/10/18 06:30 Total Protein 5.8 g/dl (6.4-8.2) L 05/11/18 06:30 Albumin 2.0 g/dl (3.4-5.0) L 05/11/18 06:30 Bulip-9-Ldsuvnmohxdpn 252 mg/dL (110-276) 05/08/18 08:00 Triglycerides 174 mg/dL (0-149) H 05/08/18 08:00 Cholesterol 66 mg/dL (100-199) L 05/08/18 08:00 Apolipoprotein A-1 33 mg/dL (116-209) L 05/08/18 08:00 Total Amylase 55 U/L (25-115) 05/08/18 08:00 Lipase 289 U/L (73-393) 05/08/18 08:00 Tumor Marker AFP < 0.7 ng/ml (0.0-8.3) 05/10/18 06:30 Carcinoembryonic Ag 3.5 ng/mL (0.0-4.7) 05/10/18 06:30 CA 19-9 Antigen 11 U/mL (0-35) 05/10/18 06:30 Patient Height (cm) 60 in (.) 05/08/18 08:00 Patient Weight (kg) 129 LBS (.) 05/08/18 08:00 Current Medications Generic Name Dose Route Start Last Admin Trade Name Freq PRN Reason Stop Dose Admin Acetaminophen 650 mg 05/06/18 23:39 05/11/18 05:40 Tylenol - PO 650 mg Q6H PRN Administration FEVER Amlodipine Besylate 5 mg 05/07/18 10:00 05/10/18 11:09 Norvasc - PO 5 mg DAILY [facility] Administration Atorvastatin Calcium 10 mg 05/07/18 22:00 05/10/18 21:18 Lipitor - PO 10 mg HS [facility] Administration Atovaquone 750 mg 05/11/18 08:00 Mepron - PO BIDWM [facility] Bisacodyl 20 mg 05/11/18 18:00 Dulcolax - PO 05/11/18 18:01 ONCE ONE Calcium Carbonate 500 mg 05/08/18 10:00 05/10/18 11:09 Os-Jah 500mg - PO 500 mg DAILY [facility] Administration Sodium Chloride 1,000 mls @ 75 mls/hr 05/06/18 23:45 05/11/18 05:41 Normal Saline - IV 75 mls/hr ASDIR [facility] Administration Doxycycline Hyclate 100 mg/ 100 mls @ 100 mls/hr 05/09/18 22:00 05/10/18 21: 18 Dextrose IVPB 100 mls/hr BID [facility] Administration Azithromycin 500 mg/ Dextrose 250 mls @ 250 mls/hr 05/10/18 12:45 05/10/18 17 :30 IVPB 250 mls/hr DAILY [facility] Administration Metformin HCl 500 mg 05/07/18 07:00 05/11/18 06:13 Glucophage - PO Not Given 0700 [facility] Metoprolol Tartrate 50 mg 05/07/18 22:00 05/10/18 21:18 Lopressor - PO 50 mg HS [facility] Administration Pantoprazole Sodium 20 mg 05/07/18 15:30 05/10/18 11:09 Protonix - PO 20 mg DAILY [facility] Administration Valsartan 160 mg 05/07/18 10:00 05/10/18 11:09 Diovan - PO 160 mg DAILY [facility] Administration AP; UTI T2DM Hypokalemia,Hyponatremia: Na 131 Corrected Ca 8.8 Elevated LFT, Thrombocytopenia Fatigue Off HCTZ Monitor electrolytes off HCTZ Hyponatremia/Hypokalemia/Hypomagnesemia compatible with HCTZ use Increase dose of antihypertensive medications if necessary to control blood pressure. Pt denies any h/o Edema or CAM GI cosult noted: W/U to r/o maignancy in progress. For Colonoscopy Will F/U
[2018-05-11] MEDS ORDERED: MAGNESIUM OXIDE 400 MG TABLET (FP) PO ONE (09:42)
[2018-05-11] MEDS ORDERED: POTASSIUM CHLORIDE TABS 20 MEQ TABLET.ER (FP) PO ONE (10:00)
[2018-05-11] MEDS ORDERED: PT OWN MED DRAWER 7, Y5N ONE ×5 (10:29→22:16)
[2018-05-11] MEDS: ATOVAQUONE 750 MG/5 ML (UNIT-DOSE PACKAGING) PO SCH ×2 (10:30→17:20)
[2018-05-11] MEDS: amLODIPine BESYLATE 5 MG TABLET (FP) PO SCH (10:31)
[2018-05-11] MEDS: CALCIUM (OYSTER SHELL) 500 MG TABLET (FP) PO SCH (10:31)
[2018-05-11] MEDS: VALSARTAN 160 MG TABLET (UD) PO SCH (10:31)
[2018-05-11] MEDS: PANTOPRAZOLE 20 MG TABLET (FP) PO SCH (10:31)
[2018-05-11] MEDS: DOXYCYCLINE INJECTION 100 MG in DEXTROSE 5%-WATER - 100 ML IVPB SCH ×2 (10:31→22:08)
[2018-05-11 11:09] LABS: ACANTHOCYTES 0; ANISOCYTOSIS 0; HELMET CELLS 0; HOWELL-JOLLY BODIES 0; MACROCYTOSIS 0; OVALOCYTE 0; PLATELET ESTIMATE DECREASED; ROULEAU 0; SICKELED CELLS 0; TARGET CELLS 0; TEAR DROP CELLS 0; TOXIC GRANULATION 0
[2018-05-11] MEDS: AZITHROMYCIN IVPB 500 MG in DEXTROSE 5%-WATER - 250 ML IVPB SCH (11:33)
--- NOTE | 2018-05-11 11:59 | PN ---
Physical Exam: SUBJECTIVE: Patient seen and examined at bed side. States shortness of breath has improved. Denies chest pain, palpitations, abdominal pain. Low appetite. Drinking contrast. Tmax 101.9 F overnight. OBJECTIVE: Vital Signs Period Temp Pulse Resp BP Sys/De Jesus Pulse Ox Last 24 Hr 97.6 F-101.9 F 95-122 18-20 113-134/61-77 97 GENERAL: Elderly female, sitting comfortably in bed, looks tired, Awake, alert, and fully oriented, in no acute distress. HEAD: Normal with no signs of trauma. EYES: EOM intact, pallor +, no icterus. EARS, NOSE, THROAT: Ears normal. Dry mucous membranes. NECK: Supple. BREAST EXAM 05/09/18: Normal, no nodules palpated AXILLA: No axillary lymph nodes palpated. LUNGS: B/L Breath sounds equal, clear to auscultation bilaterally. No wheezes, and no crackles. No accessory muscle use. HEART: Tachycardic, Regular rate and rhythm, normal S1 and S2 with soft systolic murmur. ABDOMEN: Soft, nontender, no organomegaly. MUSCULOSKELETAL: Normal range of motion at all joints. No bony deformities or tenderness. No CVA tenderness. UPPER EXTREMITIES: 2+ pulses, warm, well-perfused. No cyanosis. No clubbing. Cap refill <2 seconds. No peripheral edema. LOWER EXTREMITIES: Pigmentation below the knee, 2+ pulses, warm, well-perfused. No calf tenderness. No peripheral edema. NEUROLOGICAL: No facial droop, Power 5/5 in all extremities, sensation intact, Cranial nerves II-XII intact. Normal speech. Gait not observed. PSYCHIATRIC: Cooperative. Good eye contact. Appropriate mood and affect. SKIN: Warm, dry, normal turgor, no rashes or lesions noted. Laboratory Results - last 24 hr 05/08/18 05/09/18 05/10/18 08:00 18:00 06:30 WBC RBC Hgb Hct MCV MCH MCHC RDW Plt Count MPV Absolute Neuts (auto) Neutrophils % Neutrophils % (Manual) Band Neutrophils % Lymphocytes % Lymphocytes % (Manual) Monocytes % Monocytes % (Manual) Eosinophils % Eosinophils % (Manual) Basophils % Basophils % (Manual) Myelocytes % (Man) Promyelocytes % (Man) Blast Cells % (Manual) Nucleated RBC % Metamyelocytes Hypochromia Toxic Granulation Dohle Bodies Platelet Estimate Polychromasia Poikilocytosis Basophilic Stippling Anisocytosis Microcytosis Macrocytosis Spherocytes Sickle Cells Target Cells Tear Drop Cells Ovalocytes Stomatocytes Helmet Cells Pedersen-Steele Bodies [place] Cells Acanthocytes (Spur) Rouleaux Fragmented RBCs Schistocytes Retic Count Haptoglobin < 10 L Sodium Potassium Chloride Carbon Dioxide Anion Gap BUN Creatinine Creat Clearance w eGFR POC Glucometer Random Glucose Calcium Magnesium Total Bilirubin AST ALT Alkaline Phosphatase LD Total Total Protein Albumin Tumor Marker AFP < 0.7 Carcinoembryonic Ag 3.5 CA 19-9 Antigen 11 IgG Hepatitis C RNA Not indicated HCV RNA PCR w/Genot Rflx Not indicated Direct Antiglob Test 05/10/18 05/11/18 05/11/18 06:30 06:30 06:30 WBC 3.3 L RBC 2.89 L Hgb 8.4 L Hct 23.7 L MCV 81.9 MCH 29.1 MCHC 35.5 RDW 15.6 Plt Count 65 L MPV 9.0 Absolute Neuts (auto) 1.6 Neutrophils % 47.3 Neutrophils % (Manual) 55.7 Band Neutrophils % 1.0 Lymphocytes % 26.6 Lymphocytes % (Manual) 22.7 Monocytes % 25.2 H Monocytes % (Manual) 19 H Eosinophils % 0.5 D Eosinophils % (Manual) 2.1 D Basophils % 0.4 Basophils % (Manual) 0.0 Myelocytes % (Man) 0 D Promyelocytes % (Man) 0 Blast Cells % (Manual) 0 Nucleated RBC % 0 Metamyelocytes 0 Hypochromia 0 Toxic Granulation 0 Dohle Bodies 0 Platelet Estimate Decreased Polychromasia 0 Poikilocytosis 0 Basophilic Stippling 0 Anisocytosis 0 Microcytosis 0 Macrocytosis 0 Spherocytes 0 Sickle Cells 0 Target Cells 0 Tear Drop Cells 0 Ovalocytes 0 Stomatocytes 0 Helmet Cells 0 [place] Bodies 0 [place] Rings 0 Pantera Cells 0 Acanthocytes (Spur) 0 Rouleaux 0 Fragmented RBCs 0 Schistocytes 0 Retic Count Haptoglobin Sodium 131 L Potassium 3.1 L Chloride 99 Carbon Dioxide 22 Anion Gap 10 BUN 8 Creatinine 0.5 L Creat Clearance w eGFR > 60 POC Glucometer Random Glucose 123 H Calcium 7.2 L Magnesium 1.6 L Total Bilirubin 1.0 AST 97 H ALT 83 H Alkaline Phosphatase 87 LD Total 733 H Total Protein 5.8 L Albumin 2.0 L Tumor Marker AFP Carcinoembryonic Ag CA 19-9 Antigen IgG 1372 Hepatitis C RNA HCV RNA PCR w/Genot Rflx Direct Antiglob Test 05/11/18 05/11/18 05/11/18 06:30 06:30 06:45 WBC RBC Hgb Hct MCV MCH MCHC RDW Plt Count MPV Absolute Neuts (auto) Neutrophils % Neutrophils % (Manual) Band Neutrophils % Lymphocytes % Lymphocytes % (Manual) Monocytes % Monocytes % (Manual) Eosinophils % Eosinophils % (Manual) Basophils % Basophils % (Manual) Myelocytes % (Man) Promyelocytes % (Man) Blast Cells % (Manual) Nucleated RBC % Metamyelocytes Hypochromia Toxic Granulation Dohle Bodies Platelet Estimate Polychromasia Poikilocytosis Basophilic Stippling Anisocytosis Microcytosis Macrocytosis Spherocytes Sickle Cells Target Cells Tear Drop Cells Ovalocytes Stomatocytes Helmet Cells Pedersen-Steele Bodies [place] Cells Acanthocytes (Spur) Rouleaux Fragmented RBCs Schistocytes Retic Count 3.01 H D Haptoglobin Sodium Potassium Chloride Carbon Dioxide Anion Gap BUN Creatinine Creat Clearance w eGFR POC Glucometer 139 Random Glucose Calcium Magnesium Total Bilirubin AST ALT Alkaline Phosphatase LD Total Total Protein Albumin Tumor Marker AFP Carcinoembryonic Ag CA 19-9 Antigen IgG Hepatitis C RNA HCV RNA PCR w/Genot Rflx Direct Antiglob Test Negative 05/11/18 11:37 WBC RBC Hgb Hct MCV MCH MCHC RDW Plt Count MPV Absolute Neuts (auto) Neutrophils % Neutrophils % (Manual) Band Neutrophils % Lymphocytes % Lymphocytes % (Manual) Monocytes % Monocytes % (Manual) Eosinophils % Eosinophils % (Manual) Basophils % Basophils % (Manual) Myelocytes % (Man) Promyelocytes % (Man) Blast Cells % (Manual) Nucleated RBC % Metamyelocytes Hypochromia Toxic Granulation Dohle Bodies Platelet Estimate Polychromasia Poikilocytosis Basophilic Stippling Anisocytosis Microcytosis Macrocytosis Spherocytes Sickle Cells Target Cells Tear Drop Cells Ovalocytes Stomatocytes Helmet Cells Pedersen-Steele Bodies [place] Pantera Cells Acanthocytes (Spur) Rouleaux Fragmented RBCs Schistocytes Retic Count Haptoglobin Sodium Potassium Chloride Carbon Dioxide Anion Gap BUN Creatinine Creat Clearance w eGFR POC Glucometer 181 Random Glucose Calcium Magnesium Total Bilirubin AST ALT Alkaline Phosphatase LD Total Total Protein Albumin Tumor Marker AFP Carcinoembryonic Ag CA 19-9 Antigen IgG Hepatitis C RNA HCV RNA PCR w/Genot Rflx Direct Antiglob Test Active Medications Generic Name Dose Route Start Last Admin Trade Name Freq PRN Reason Stop Dose Admin Acetaminophen 650 mg 05/06/18 23:39 05/11/18 05:40 Tylenol - PO 650 mg Q6H PRN Administration FEVER Amlodipine Besylate 5 mg 05/07/18 10:00 05/11/18 10:31 Norvasc - PO 5 mg DAILY [facility] Administration Atorvastatin Calcium 10 mg 05/07/18 22:00 05/10/18 21:18 Lipitor - PO 10 mg HS [facility] Administration Atovaquone 750 mg 05/11/18 08:00 05/11/18 10:30 Mepron - PO 750 mg BIDWM [facility] Administration Bisacodyl 20 mg 05/11/18 18:00 Dulcolax - PO 05/11/18 18:01 ONCE ONE Calcium Carbonate 500 mg 05/08/18 10:00 05/11/18 10:31 Os-Jah 500mg - PO 500 mg DAILY [facility] Administration Guaifenesin 10 ml 05/11/18 09:42 Diabetic Tussin Dm - PO Q6H PRN COUGH Sodium Chloride 1,000 mls @ 75 mls/hr 05/06/18 23:45 05/11/18 05:41 Normal Saline - IV 75 mls/hr ASDIR [facility] Administration Doxycycline Hyclate 100 mg/ 100 mls @ 100 mls/hr 05/09/18 22:00 05/11/18 10: 31 Dextrose IVPB 100 mls/hr BID [facility] Administration Azithromycin 500 mg/ Dextrose 250 mls @ 250 mls/hr 05/10/18 12:45 05/11/18 11 :33 IVPB 250 mls/hr DAILY [facility] Administration Metformin HCl 500 mg 05/07/18 07:00 05/11/18 06:13 Glucophage - PO Not Given 0700 [facility] Metoprolol Tartrate 50 mg 05/07/18 22:00 05/10/18 21:18 Lopressor - PO 50 mg HS [facility] Administration Pantoprazole Sodium 20 mg 05/07/18 15:30 05/11/18 10:31 Protonix - PO 20 mg DAILY [facility] Administration Valsartan 160 mg 05/07/18 10:00 05/11/18 10:31 Diovan - PO 160 mg DAILY [facility] Administration Patient is a 72 year old female, new patient to [facility], with past medical history of Hyperlipidemia, DM, UTI, Labile HTN; Diastolic dysfunction; History of chest pain syndrome, Diverticulosis was sent by her PCP (Dr. Werner) for evaluation of weakness and low appetite. ASSESSMENT Newly diagnosed colon mass ? 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 Thrombocytopenia Normocytic anemia Transaminitis Labile Hypertension Hyperlipidemia DM- A1c done 2 weeks ago was 6.5 as per the patient. Diastolic dysfunction H/o Chest pain syndrome- No active chest pain PLAN: # Newly diagnosed colon mass ? Malignant Found in CT abdomen/Pelvis 05/09/2018: Mass in descending colon. Undergoing Colonoscopy with biopsy tomorrow in the morning. Treatment as per the results. # Hemolysis Although corrected reticulocyte count is 1.6, it is compatible with hemolysis given Low haptoglobulin, High LDH -likely secondary to babesia. Will repeat LDH, Reticulocyte count and order a Kwadwo test in the morning. Will monitor. # Thrombocytopenia-Unknown if it is acute or chronic Platelet count 77 on admission---> 66--->59-->65 today Likely secondary to infection (underlying babesia) vs antibiotic use vs liver disease. # Normocytic anemia H/H 9.2/26.8--->8.4/23.7, no signs of active bleed. Ferritin high d/t reactive, related to liver disease, babesia. normal iron, TIBC is low compatible with chronic illness ? liver disease ? other Undergoing Colonoscopy on 05/12/2018, as per GI team # Reverse A/G ratio-r/o dysproteinemia or possible polyclonal gammopathy secondary to underlying liver disease. UPEP, IPEP, SPEP, quantitative immunoglobulins sent # Monocytosis Could be due to liver disease or infectious-viral or malignant. Will observe and consider flow cytometry. Will need to review peripheral smear. Rest as per primary. Plan of care discussed with the patient and her daughter. They verbalized understanding. Case discussed with Dr. Griffith. Dispo: We will continue to follow the patient. Thank you for this consultative opportunity. Visit type - Emergency Visit Emergency Visit: Yes ED Registration Date: 05/06/18 Care time: The patient presented to the Emergency Department on the above date and was hospitalized for further evaluation of their emergent condition. - New Patient This patient is new to me today: No - Critical Care Critical Care patient: No
--- NOTE | 2018-05-11 12:02 | PN ---
Progress Note, Physician History of Present Illness: Low grade fevers, reactive sinus tachycardia noted, currently undergoing Golytely prep. - Current Medication List Current Medications: Active Medications Acetaminophen (Tylenol -) 650 mg PO Q6H PRN PRN Reason: FEVER Last Admin: 05/11/18 05:40 Dose: 650 mg Amlodipine Besylate (Norvasc -) 5 mg PO DAILY [facility] Last Admin: 05/11/18 10:31 Dose: 5 mg Atorvastatin Calcium (Lipitor -) 10 mg PO HS [facility] Last Admin: 05/10/18 21:18 Dose: 10 mg Atovaquone (Mepron -) 750 mg PO BIDWM [facility] Last Admin: 05/11/18 10:30 Dose: 750 mg Bisacodyl (Dulcolax -) 20 mg PO ONCE ONE Stop: 05/11/18 18:01 Calcium Carbonate (Os-Jah 500mg -) 500 mg PO DAILY [facility] Last Admin: 05/11/18 10:31 Dose: 500 mg Guaifenesin (Diabetic Tussin Dm -) 10 ml PO Q6H PRN PRN Reason: COUGH Sodium Chloride (Normal Saline -) 1,000 mls @ 75 mls/hr IV ASDIR [facility] Last Admin: 05/11/18 05:41 Dose: 75 mls/hr Doxycycline Hyclate 100 mg/ (Dextrose) 100 mls @ 100 mls/hr IVPB BID [facility] Last Admin: 05/11/18 10:31 Dose: 100 mls/hr Azithromycin 500 mg/ Dextrose 250 mls @ 250 mls/hr IVPB DAILY [facility] Last Admin: 05/11/18 11:33 Dose: 250 mls/hr Metformin HCl (Glucophage -) 500 mg PO 0700 [facility] Last Admin: 05/11/18 06:13 Dose: Not Given Metoprolol Tartrate (Lopressor -) 50 mg PO HS [facility] Last Admin: 05/10/18 21:18 Dose: 50 mg Pantoprazole Sodium (Protonix -) 20 mg PO DAILY [facility] Last Admin: 05/11/18 10:31 Dose: 20 mg Valsartan (Diovan -) 160 mg PO DAILY [facility] Last Admin: 05/11/18 10:31 Dose: 160 mg - Objective Vital Signs: Vital Signs Temperature 98.2 F 05/11/18 10:26 Pulse Rate 95 H 05/11/18 10:26 Respiratory Rate 20 05/11/18 10:26 Blood Pressure 125/61 05/11/18 10:26 O2 Sat by Pulse Oximetry (%) 97 05/10/18 21:00 Constitutional: Yes: No Distress, Calm, Thin Neck: Yes: Supple Cardiovascular: Yes: Tachycardia Respiratory: Yes: Regular, CTA Bilaterally Gastrointestinal: Yes: Normal Bowel Sounds, Soft Edema: No Labs: CBC, BMP 05/11/18 06:30 05/11/18 06:30 INR, PTT INR 1.36 (0.83-1.09) H 05/08/18 08:00 Problem List - Problems (1) Diastolic dysfunction Code(s): I51.9 - HEART DISEASE, UNSPECIFIED (2) Abnormal LFTs (liver function tests) Code(s): R94.5 - ABNORMAL RESULTS OF LIVER FUNCTION STUDIES (3) Fatigue Code(s): R53.83 - OTHER FATIGUE Qualifiers: Fatigue type: unspecified Qualified Code(s): R53.83 - Other fatigue (4) Hyperlipidemia associated with type 2 diabetes mellitus Code(s): E11.69 - TYPE 2 DIABETES MELLITUS WITH OTHER SPECIFIED COMPLICATION; E78.5 - HYPERLIPIDEMIA, UNSPECIFIED (5) Hypertension Code(s): I10 - ESSENTIAL (PRIMARY) HYPERTENSION Qualifiers: Hypertension type: essential hypertension Qualified Code(s): I10 - Essential (primary) hypertension (6) Poor appetite Code(s): R63.0 - ANOREXIA (7) Diabetic gastroparesis Code(s): E11.43 - TYPE 2 DIABETES W DIABETIC AUTONOMIC (POLY)NEUROPATHY; K31.84 - GASTROPARESIS (8) Babesiosis Code(s): B60.0 - BABESIOSIS (9) Fever of unknown origin (FUO) Code(s): R50.9 - FEVER, UNSPECIFIED Assessment/Plan MPI December 28, 2016 Mild inferoapical ischemia, LVEF 83% Echo December 28, 2016 Normal LV size and fxn, mild-mod MR, mild TR Holter December 28, 2017: SR with rare supraventricular and ventricular ectopic 1. 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 Dyspepsia and nausea referable to diabetic vs viral gastroparesis 3. Hemolytic anemia 4. Labile HTN 5. Diastolic dysfunction 6. Type 2 DM 7. Hyperlipidemia 8. H/o chest pain syndrome P:1. Complete empiric abx course 2. Placed on Reglan and Protonix with improvement, replete K and Mg as you are 3. Continue Metoprolol 50 qd, Norvasc 5 qd, Lipitor 10 qd, ASA 81 qd, valsartan 160 qd 4. F/u colonoscopy on Tuesday
--- NOTE | 2018-05-11 14:08 | PN ---
Progress Note (short form) - Note Progress Note: still with fevers weak Vital Signs Period Temp Pulse Resp BP Sys/De Jesus Pulse Ox Last 24 Hr 97.6 F-101.9 F 95-122 16-20 113-134/61-77 97 cor-rrr lungs clear abd soft,nt ext no edema CBC, BMP 05/11/18 06:30 05/11/18 06:30 Microbiology 05/09/18 21:15 Colon Fluid Salmonella/Shigella Culture - Preliminary NO ENTERIC PATHOGENS, 24 HOURS, ON PRIMARY PLATES 05/09/18 21:15 Colon Fluid Yersinia Culture - Preliminary NO ENTERIC PATHOGENS, 24 HOURS, ON PRIMARY PLATES 05/09/18 21:15 Colon Fluid Vibrio Culture - Final 05/09/18 21:15 Colon Fluid Escherichia coli 0157 Culture - Final NO GROWTH OF E COLI 0157 OBTAINED 05/06/18 21:25 Blood - Peripheral Venous Blood Culture - Preliminary NO GROWTH OBTAINED AFTER 96 HOURS, INCUBATION TO CONTINUE FOR 1 DAYS. 05/06/18 21:25 Blood - Peripheral Venous Blood Culture - Preliminary NO GROWTH OBTAINED AFTER 96 HOURS, INCUBATION TO CONTINUE FOR 1 DAYS. 05/09/18 21:15 Stool Clostridium difficile Antigen (JUDAH) - Final 05/09/18 21:15 Stool Clostridium difficile Toxin Assay - Final 05/09/18 18:00 Blood - Peripheral Venous Blood Parasites Smear - Final Babesia Species 05/06/18 17:00 Urine - Urine Clean Catch Urine Culture - Final NO GROWTH OBTAINED 05/06/18 15:46 Throat Throat Culture - Final NO BETA HEMOLYTIC STREPTOCOCCI ISOLATED 05/06/18 15:46 Throat Group A Strep Rapid Antigen - Final 05/06/18 20:46 Nasopharyngeal Swab Influenza Types A,B Antigen - Final 05/06/18 20:46 Nasopharyngeal Swab - Final 05/08/18 05/09/18 05/09/18 08:00 18:00 18:00 Retic Count 2.00 H Haptoglobin <10 L LD Total 788 H 05/11/18 05/11/18 06:30 06:30 Retic Count 3.01 H D Haptoglobin LD Total 733 H a/p babesiosis with hemolysis and fever/thrombocytopenia continue zithromax and mepron day #1 continue doxycycline for possible coinfection serologies pending repeat smear pending probable colon mass d/w patient- she is agreeable d/w Dr Mohamud- will postpone colonscopy until Tuesday as she is still actively hemolyzing and febrile Problem List - Problems (1) Fever of unknown origin (FUO) Code(s): R50.9 - FEVER, UNSPECIFIED (2) Weight loss Code(s): R63.4 - ABNORMAL WEIGHT LOSS (3) Thrombocytopenia Code(s): D69.6 - THROMBOCYTOPENIA, UNSPECIFIED
[2018-05-11 16:27] LABS: EPSTEIN BARR ANTIBODY IgM >160.0 U/mL (0.0-35.9)
[2018-05-11] MEDS ORDERED: BISACODYL 5 MG TABLET.DR (FP) PO ONE (18:00)
--- NOTE | 2018-05-11 21:42 | PN ---
GI Progress Note Subjective: GI NOte: Notified earlier in the day by Dr Monroe of persistent fever and hemolysis so bowel prep stopped and colonoscopy canceled. Fatmata is not disappointed as she continues to feel very weak. - Objective Vital Signs: Vital Signs Temperature 98.2 F 05/11/18 19:12 Pulse Rate 117 H 05/11/18 19:12 Respiratory Rate 24 05/11/18 19:12 Blood Pressure 121/75 05/11/18 19:12 O2 Sat by Pulse Oximetry (%) 97 05/11/18 10:30 Selected Entries 05/11/18 17:05 Temperature 101.7 F H Laboratory Tests 05/09/18 05/10/18 05/11/18 07:00 06:30 06:30 Hgb 10.3 L 9.2 L 8.4 L LD Total 05/11/18 06:30 Hgb LD Total 733 H Laboratory Tests 05/11/18 06:30 Total Bilirubin 1.0 AST 97 H ALT 83 H Constitutional: Pallor ...Auscultate: Yes: Normoactive Bowel Sounds ...Palpate: Yes: Soft, Other (nontender) Labs: CBC, BMP 05/11/18 06:30 05/11/18 06:30 INR, PTT INR 1.36 (0.83-1.09) H 05/08/18 08:00 Assessment/Plan Colonoscopy cancelled Please recall us when she is strong enough to reschedule it Problem List - Problems (1) Abnormal abdominal CT scan Assessment/Plan: Will defer colonoscopy until Fatmata recovers from the babesiosis and is strong enough Code(s): R93.5 - ABN FINDINGS ON DX IMAGING OF ABD REGIONS, INC RETROPERITON (2) Babesiosis Code(s): B60.0 - BABESIOSIS (3) Abnormal LFTs (liver function tests) Code(s): R94.5 - ABNORMAL RESULTS OF LIVER FUNCTION STUDIES (4) Abdominal pain Code(s): R10.9 - UNSPECIFIED ABDOMINAL PAIN (5) Diverticula of colon Code(s): K57.30 - DVRTCLOS OF LG INT W/O PERFORATION OR ABSCESS W/O BLEEDING (6) Hypertension Code(s): I10 - ESSENTIAL (PRIMARY) HYPERTENSION Qualifiers: Hypertension type: essential hypertension Qualified Code(s): I10 - Essential (primary) hypertension (7) Hyperlipidemia associated with type 2 diabetes mellitus Code(s): E11.69 - TYPE 2 DIABETES MELLITUS WITH OTHER SPECIFIED COMPLICATION; E78.5 - HYPERLIPIDEMIA, UNSPECIFIED (8) Nausea Code(s): R11.0 - NAUSEA (9) Poor appetite Code(s): R63.0 - ANOREXIA (10) Diabetes 1.5, managed as type 2 Code(s): E10.9 - TYPE 1 DIABETES MELLITUS WITHOUT COMPLICATIONS
[2018-05-11] MEDS: METOPROLOL TARTRATE 50 MG TABLET (FP) PO SCH (22:08)
[2018-05-11] MEDS: ATORVASTATIN CA 10 MG TABLET (FP) PO SCH (22:08)
[2018-05-12] MEDS: SODIUM CHLORIDE 1,000 ML IV SCH (06:30)
[2018-05-12] MEDS: metFORMIN HCL 500 MG TABLET (FP) PO SCH (06:34)
[2018-05-12 07:15] LABS: BASO % 0.5 % (0-2.0); EOS % 0.9 % (0-4.5); HEMOGLOBIN 7.3 GM/dL (10.7-15.3); LYMPH % 33.1 % (8-40); MCH 28.5 pg (25.7-33.7); MCHC 34.8 g/dl (32.0-36.0); MEAN CELL VOLUME 81.9 fl (80-96); MEAN PLT VOLUME 8.6 fl (7.5-11.1); MONO % 26.2 % (3.8-10.2); NEUT % 39.3 % (42.8-82.8); PLATELET COUNT 73 K/MM3 (134-434); RBC 2.56 M/mm3 (3.60-5.2); RDW 15.7 % (11.6-15.6); WHITE BLOOD COUNT 3.7 K/mm3 (4.0-10.0)
[2018-05-12 07:52] LABS: CHLORIDE 102 mmol/L (98-107); POTASSIUM 3.6 mmol/L (3.5-5.1); SODIUM 133 mmol/L (136-145)
[2018-05-12 07:57] LABS: ALBUMIN 2.1 g/dl (3.4-5.0); ALK PHOS 84 U/L (45-117); ANION GAP 9 MMOL/L (8-16); BLOOD UREA NITROGEN 6 mg/dL (7-18); CALCIUM 7.1 mg/dL (8.5-10.1); CO2 22 mmol/L (21-32); CREATININE 0.5 mg/dL (0.55-1.3); GLUCOSE,RANDOM 103 mg/dL (74-106); MAGNESIUM 1.5 mg/dL (1.8-2.4); SGOT/AST 80 U/L (15-37); SGPT/ALT 73 U/L (13-61); TOT PROT 5.9 g/dl (6.4-8.2)
[2018-05-12 07:58] LABS: LDH 786 U/L (84-246)
[2018-05-12] MEDS ORDERED: PT OWN MED DRAWER 7, Y5N ONE ×4 (08:51→18:22)
[2018-05-12] MEDS: ATOVAQUONE 750 MG/5 ML (UNIT-DOSE PACKAGING) PO SCH ×2 (08:52→18:30)
[2018-05-12] MEDS: amLODIPine BESYLATE 5 MG TABLET (FP) PO SCH (09:36)
[2018-05-12] MEDS: PANTOPRAZOLE 20 MG TABLET (FP) PO SCH (09:36)
[2018-05-12] MEDS: VALSARTAN 160 MG TABLET (UD) PO SCH (09:36)
[2018-05-12] MEDS: CALCIUM (OYSTER SHELL) 500 MG TABLET (FP) PO SCH (09:36)
--- NOTE | 2018-05-12 10:08 | PN ---
Progress Note, Physician Chief Complaint: Pt lying in bed,tiredness,,lack of appetitie still present,sinus tachcardia anemia present,hypomagnesemia Ct abdomen and pelvis shows colonic mass Peripheral smear shows babesiosis Gi,ID,Oncology,endocrine F/u appreciated Hypokalemia imporoved hyponatremia improvement Elevated LFT,low Platelet blood cul and urine cul negative - Current Medication List Current Medications: Active Medications Acetaminophen (Tylenol -) 650 mg PO Q6H PRN PRN Reason: FEVER Last Admin: 05/11/18 17:20 Dose: 650 mg Amlodipine Besylate (Norvasc -) 5 mg PO DAILY [facility] Last Admin: 05/12/18 09:36 Dose: 5 mg Atorvastatin Calcium (Lipitor -) 10 mg PO HS [facility] Last Admin: 05/11/18 22:08 Dose: 10 mg Atovaquone (Mepron -) 750 mg PO BIDWM [facility] Last Admin: 05/12/18 08:52 Dose: 750 mg Calcium Carbonate (Os-Jah 500mg -) 500 mg PO DAILY [facility] Last Admin: 05/12/18 09:36 Dose: 500 mg Guaifenesin (Diabetic Tussin Dm -) 10 ml PO Q6H PRN PRN Reason: COUGH Sodium Chloride (Normal Saline -) 1,000 mls @ 75 mls/hr IV ASDIR [facility] Last Admin: 05/12/18 06:30 Dose: Not Given Doxycycline Hyclate 100 mg/ (Dextrose) 100 mls @ 100 mls/hr IVPB BID [facility] Last Admin: 05/11/18 22:08 Dose: 100 mls/hr Azithromycin 500 mg/ Dextrose 250 mls @ 250 mls/hr IVPB DAILY [facility] Last Admin: 05/11/18 11:33 Dose: 250 mls/hr Metformin HCl (Glucophage -) 500 mg PO 0700 [facility] Last Admin: 05/12/18 06:34 Dose: 500 mg Metoprolol Tartrate (Lopressor -) 50 mg PO HS [facility] Last Admin: 05/11/18 22:08 Dose: 50 mg Pantoprazole Sodium (Protonix -) 20 mg PO DAILY [facility] Last Admin: 05/12/18 09:36 Dose: 20 mg Valsartan (Diovan -) 160 mg PO DAILY [facility] Last Admin: 05/12/18 09:36 Dose: 160 mg - Objective Vital Signs: Vital Signs Temperature 98.7 F 09/14/18 06:00 Pulse Rate 124 H 05/12/18 09:28 Respiratory Rate 20 05/12/18 09:28 Blood Pressure 144/77 05/12/18 09:28 O2 Sat by Pulse Oximetry (%) 97 05/11/18 21:00 Constitutional: Yes: No Distress, Pallor Eyes: Yes: Conjunctiva Clear HENT: Yes: Atraumatic, Normocephalic Neck: Yes: Supple, Trachea Midline Cardiovascular: Yes: Regular Rate and Rhythm Respiratory: Yes: Regular, CTA Bilaterally Gastrointestinal: Yes: Normal Bowel Sounds, Soft Musculoskeletal: Yes: WNL Extremities: Yes: WNL Edema: No Peripheral Pulses WNL: Yes Neurological: Yes: WNL ...Motor Strength: WNL Labs: CBC, BMP 05/12/18 06:00 05/12/18 06:00 INR, PTT INR 1.36 (0.83-1.09) H 05/08/18 08:00 Assessment/Plan colonic mass Babesiosis anemia,hemolytic,severe tirednesstransfuse 2 units of PRBC hypomagnesemia ,hyponatremia POOR appetite, and po intake Elevated LFT,low platelet Fatigue, generalised weakness sinus tachycardia PLAN Antibiotics as per ID GI F/u Continue Metformin,metoprolol and amlodipine mg suppliment and Calcium suppliment will monitor labs endocrine ,hematology f/u transfuse 2 units of PRBC
[2018-05-12] MEDS: DOXYCYCLINE INJECTION 100 MG in DEXTROSE 5%-WATER - 100 ML IVPB SCH ×2 (10:20→22:12)
[2018-05-12 10:58] LABS: PLATELET ESTIMATE DECREASED; TARGET CELLS 1+
--- NOTE | 2018-05-12 11:28 | PN ---
Progress Note, Physician History of Present Illness: Low grade fevers, ongoing hemolysis, reactive sinus tachycardia noted, colonoscopy cancelled and receiving pRBC. - Current Medication List Current Medications: Active Medications Acetaminophen (Tylenol -) 650 mg PO Q6H PRN PRN Reason: FEVER Last Admin: 05/11/18 17:20 Dose: 650 mg Amlodipine Besylate (Norvasc -) 5 mg PO DAILY [facility] Last Admin: 05/12/18 09:36 Dose: 5 mg Atorvastatin Calcium (Lipitor -) 10 mg PO HS [facility] Last Admin: 05/11/18 22:08 Dose: 10 mg Atovaquone (Mepron -) 750 mg PO BIDWM [facility] Last Admin: 05/12/18 08:52 Dose: 750 mg Calcium Carbonate (Os-Jah 500mg -) 500 mg PO DAILY [facility] Last Admin: 05/12/18 09:36 Dose: 500 mg Guaifenesin (Diabetic Tussin Dm -) 10 ml PO Q6H PRN PRN Reason: COUGH Sodium Chloride (Normal Saline -) 1,000 mls @ 75 mls/hr IV ASDIR [facility] Last Admin: 05/12/18 06:30 Dose: Not Given Doxycycline Hyclate 100 mg/ (Dextrose) 100 mls @ 100 mls/hr IVPB BID [facility] Last Admin: 05/12/18 10:20 Dose: 100 mls/hr Azithromycin 500 mg/ Dextrose 250 mls @ 250 mls/hr IVPB DAILY [facility] Last Admin: 05/11/18 11:33 Dose: 250 mls/hr Magnesium Oxide (Mag-Ox -) 400 mg PO ONCE ONE Stop: 05/12/18 10:13 Metformin HCl (Glucophage -) 500 mg PO 0700 [facility] Last Admin: 05/12/18 06:34 Dose: 500 mg Metoprolol Tartrate (Lopressor -) 50 mg PO HS [facility] Last Admin: 05/11/18 22:08 Dose: 50 mg Pantoprazole Sodium (Protonix -) 20 mg PO DAILY [facility] Last Admin: 05/12/18 09:36 Dose: 20 mg Valsartan (Diovan -) 160 mg PO DAILY [facility] Last Admin: 05/12/18 09:36 Dose: 160 mg - Objective Vital Signs: Vital Signs Temperature 98.3 F 05/12/18 11:11 Pulse Rate 124 H 05/12/18 09:28 Respiratory Rate 20 05/12/18 09:28 Blood Pressure 144/77 05/12/18 09:28 O2 Sat by Pulse Oximetry (%) 97 05/11/18 21:00 Constitutional: Yes: No Distress, Calm, Thin Neck: Yes: Supple Cardiovascular: Yes: Tachycardia Respiratory: Yes: Regular, CTA Bilaterally Gastrointestinal: Yes: Normal Bowel Sounds, Soft Edema: No Labs: CBC, BMP 05/12/18 06:00 05/12/18 06:00 INR, PTT INR 1.36 (0.83-1.09) H 05/08/18 08:00 - ....Imaging EKG: Report Reviewed (ST @ 104) Problem List - Problems (1) Diastolic dysfunction Code(s): I51.9 - HEART DISEASE, UNSPECIFIED (2) Abnormal LFTs (liver function tests) Code(s): R94.5 - ABNORMAL RESULTS OF LIVER FUNCTION STUDIES (3) Fatigue Code(s): R53.83 - OTHER FATIGUE Qualifiers: Fatigue type: unspecified Qualified Code(s): R53.83 - Other fatigue (4) Hyperlipidemia associated with type 2 diabetes mellitus Code(s): E11.69 - TYPE 2 DIABETES MELLITUS WITH OTHER SPECIFIED COMPLICATION; E78.5 - HYPERLIPIDEMIA, UNSPECIFIED (5) Hypertension Code(s): I10 - ESSENTIAL (PRIMARY) HYPERTENSION Qualifiers: Hypertension type: essential hypertension Qualified Code(s): I10 - Essential (primary) hypertension (6) Poor appetite Code(s): R63.0 - ANOREXIA (7) Diabetic gastroparesis Code(s): E11.43 - TYPE 2 DIABETES W DIABETIC AUTONOMIC (POLY)NEUROPATHY; K31.84 - GASTROPARESIS (8) Babesiosis Code(s): B60.0 - BABESIOSIS (9) Fever of unknown origin (FUO) Code(s): R50.9 - FEVER, UNSPECIFIED Assessment/Plan MPI December 28, 2016 Mild inferoapical ischemia, LVEF 83% Echo December 28, 2016 Normal LV size and fxn, mild-mod MR, mild TR Holter December 28, 2017: SR with rare supraventricular and ventricular ectopic 1. 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 Dyspepsia and nausea referable to diabetic vs viral gastroparesis 3. Hemolytic anemia 4. Reactive sinus tahycardia 5. Labile HTN 6. Diastolic dysfunction 7. Type 2 DM 8. Hyperlipidemia 9. H/o chest pain syndrome P:1. Complete empiric abx course 2. Placed on Reglan and Protonix with improvement, replete K and Mg as you are 3. Continue Metoprolol 50 qd, Norvasc 5 qd, Lipitor 10 qd, valsartan 160 qd 4. Monitor Hgb post-transfusion and plan for colonoscopy once hgb stable, ASA 81 qd held in meantime
[2018-05-12] MEDS ORDERED: MAGNESIUM OXIDE 400 MG TABLET (FP) PO ONE (11:45)
[2018-05-12] MEDS: AZITHROMYCIN IVPB 500 MG in DEXTROSE 5%-WATER - 250 ML IVPB SCH (11:54)
--- NOTE | 2018-05-12 14:37 | PN ---
Progress Note (short form) - Note Progress Note: anemia feels a bit stronger Vital Signs Period Temp Pulse Resp BP Sys/De Jesus Pulse Ox Last 24 Hr 98.2 F-101.7 F 92-124 22-24 121-144/61-82 97 cor-rrr lungs clear abd soft,nt ext no edema CBC, BMP 05/12/18 06:00 05/12/18 06:00 Microbiology 05/09/18 21:15 Colon Fluid Gram Stain - Final 05/09/18 21:15 Colon Fluid Salmonella/Shigella Culture - Final NO GROWTH OF SALMONELLA OR SHIGELLA SPECIES OBTAINED 05/09/18 21:15 Colon Fluid Campylobacter Culture - Final NO GROWTH OF CAMPYLOBACTER SPECIES OBTAINED 05/09/18 21:15 Colon Fluid Yersinia Culture - Final NO GROWTH OF YERSINIA SPECIES OBTAINED 05/09/18 21:15 Colon Fluid Vibrio Culture - Final 05/09/18 21:15 Colon Fluid Escherichia coli 0157 Culture - Final NO GROWTH OF E COLI 0157 OBTAINED 05/12/18 06:00 Blood - Peripheral Venous Blood Parasites Smear - Final Babesia Species 05/06/18 21:25 Blood - Peripheral Venous Blood Culture - Final NO GROWTH AFTER 5 DAYS INCUBATION 05/06/18 21:25 Blood - Peripheral Venous Blood Culture - Final NO GROWTH AFTER 5 DAYS INCUBATION 05/09/18 21:15 Stool Clostridium difficile Antigen (JUDAH) - Final 05/09/18 21:15 Stool Clostridium difficile Toxin Assay - Final 05/09/18 18:00 Blood - Peripheral Venous Blood Parasites Smear - Final Babesia Species 05/06/18 17:00 Urine - Urine Clean Catch Urine Culture - Final NO GROWTH OBTAINED 05/06/18 15:46 Throat Throat Culture - Final NO BETA HEMOLYTIC STREPTOCOCCI ISOLATED 05/06/18 15:46 Throat Group A Strep Rapid Antigen - Final 05/06/18 20:46 Nasopharyngeal Swab Influenza Types A,B Antigen - Final 05/06/18 20:46 Nasopharyngeal Swab - Final a/p babesiosis with hemolysis and fever/thrombocytopenia continue zithromax and mepron day #2 continue doxycycline for possible coinfection serologies pending repeat smear less parasitemia probable colon mass will need colonoscopy d/w Dr Dunne d/w family at bedside Problem List - Problems (1) Fever of unknown origin (FUO) Code(s): R50.9 - FEVER, UNSPECIFIED (2) Weight loss Code(s): R63.4 - ABNORMAL WEIGHT LOSS (3) Thrombocytopenia Code(s): D69.6 - THROMBOCYTOPENIA, UNSPECIFIED
[2018-05-12] MEDS: guaiFENesin/D-M SUGAR-FREE/ACLHOL-FREE 118 ML BOTTLE PO PRN (16:57)
--- NOTE | 2018-05-12 17:36 | PN ---
GI Progress Note Subjective: GI NOte: Still not eating well. Having diarrhea which may be the Golytely effect. C diff toxin, stool cultures and stool for WBC are negative. Being transfused. - Objective Vital Signs: Vital Signs Temperature 97.5 F L 05/12/18 14:52 Pulse Rate 111 H 05/12/18 14:52 Respiratory Rate 20 05/12/18 14:52 Blood Pressure 134/78 05/12/18 14:52 O2 Sat by Pulse Oximetry (%) 97 05/11/18 21:00 Laboratory Tests 05/11/18 05/12/18 06:30 06:00 Hgb 8.4 L 7.3 L Constitutional: Anxious ...Auscultate: Yes: Normoactive Bowel Sounds ...Palpate: Yes: Soft, Other (nontender) Labs: CBC, BMP 05/12/18 06:00 05/12/18 06:00 INR, PTT INR 1.36 (0.83-1.09) H 05/08/18 08:00 Problem List - Problems (1) Abnormal abdominal CT scan Assessment/Plan: Will not reschedule colonoscopy until Fatmata regains the strength to undertake it. Dr Purvis will be covering this weekend. Code(s): R93.5 - ABN FINDINGS ON DX IMAGING OF ABD REGIONS, INC RETROPERITON (2) Babesiosis Code(s): B60.0 - BABESIOSIS (3) Abnormal LFTs (liver function tests) Code(s): R94.5 - ABNORMAL RESULTS OF LIVER FUNCTION STUDIES (4) Abdominal pain Code(s): R10.9 - UNSPECIFIED ABDOMINAL PAIN (5) Diverticula of colon Code(s): K57.30 - DVRTCLOS OF LG INT W/O PERFORATION OR ABSCESS W/O BLEEDING (6) Hypertension Code(s): I10 - ESSENTIAL (PRIMARY) HYPERTENSION Qualifiers: Hypertension type: essential hypertension Qualified Code(s): I10 - Essential (primary) hypertension (7) Hyperlipidemia associated with type 2 diabetes mellitus Code(s): E11.69 - TYPE 2 DIABETES MELLITUS WITH OTHER SPECIFIED COMPLICATION; E78.5 - HYPERLIPIDEMIA, UNSPECIFIED (8) Nausea Code(s): R11.0 - NAUSEA (9) Poor appetite Code(s): R63.0 - ANOREXIA (10) Diabetes 1.5, managed as type 2 Code(s): E10.9 - TYPE 1 DIABETES MELLITUS WITHOUT COMPLICATIONS
--- NOTE | 2018-05-12 19:21 | PN ---
Physical Exam: SUBJECTIVE: Patient seen and examined at bed side. States shortness of breath still persists. Now having palpitations. . Denies chest pain, abdominal pain. Low appetite. Drinking contrast. Tmax 101.7 F overnight. OBJECTIVE: Vital Signs Period Temp Pulse Resp BP Sys/De Jesus Pulse Ox Last 24 Hr 97.5 F-98.8 F 92-124 20-24 124-154/61-84 97 GENERAL: Elderly female, sitting comfortably in bed, looks tired, Awake, alert, and fully oriented, in no acute distress. HEAD: Normal with no signs of trauma. EYES: EOM intact, pallor +, no icterus. EARS, NOSE, THROAT: Ears normal. Dry mucous membranes. NECK: Supple. BREAST EXAM 05/09/18: Normal, no nodules palpated AXILLA: No axillary lymph nodes palpated. LUNGS: B/L Breath sounds equal, clear to auscultation bilaterally. No wheezes, and no crackles. No accessory muscle use. HEART: Tachycardic, Regular rate and rhythm, normal S1 and S2 with soft systolic murmur. ABDOMEN: Soft, nontender, no organomegaly. MUSCULOSKELETAL: Normal range of motion at all joints. No bony deformities or tenderness. No CVA tenderness. UPPER EXTREMITIES: 2+ pulses, warm, well-perfused. No cyanosis. No clubbing. Cap refill <2 seconds. No peripheral edema. LOWER EXTREMITIES: Pigmentation below the knee, 2+ pulses, warm, well-perfused. No calf tenderness. No peripheral edema. NEUROLOGICAL: No facial droop, Power 5/5 in all extremities, sensation intact, Cranial nerves II-XII intact. Normal speech. Gait not observed. PSYCHIATRIC: Cooperative. Good eye contact. Appropriate mood and affect. SKIN: Warm, dry, normal turgor, no rashes or lesions noted. Laboratory Results - last 24 hr 05/10/18 05/10/18 05/10/18 06:00 06:30 06:30 WBC RBC Hgb Hct MCV MCH MCHC RDW Plt Count MPV Absolute Neuts (auto) Total Counted Neutrophils % Neutrophils % (Manual) Band Neutrophils % Lymphocytes % Lymphocytes % (Manual) Monocytes % Monocytes % (Manual) Eosinophils % Eosinophils % (Manual) Basophils % Nucleated RBC % Metamyelocytes Hypochromia Platelet Estimate Platelet Comment Polychromasia Microcytosis Target Cells Sodium Potassium Chloride Carbon Dioxide Anion Gap BUN Creatinine Creat Clearance w eGFR POC Glucometer Random Glucose Calcium Magnesium Total Bilirubin AST ALT Alkaline Phosphatase LD Total Total Protein Total Protein (PEP) 5.7 L Albumin Albumin (PEP) 2.3 L Globulin 3.4 Albumin/Globulin Ratio 0.7 Beta Globulins 0.9 1.0 Stool O & P Wet [place] MORALES & SPEP Interp Total Protein (MORALES) 5.9 L Albumin (MORALES) 2.4 L Albumin/Globulin (MORALES) 0.7 Pgzbf-5-Hizojigzg MORALES 0.4 Jnmyb-7-Qbgtwsiqa MORALES 0.5 Gamma Globulins (MORALES) 1.6 MORALES M-Paolo Not observed MORALES Comments IEP IgG 1393 IEP IgA 513 H IEP IgM 167 O & P Permanent Slide Final report Blood Type Antibody Screen Crossmatch 05/12/18 05/12/18 05/12/18 06:00 06:00 06:00 WBC 3.7 L RBC 2.56 L Hgb 7.3 L Hct 21.0 L MCV 81.9 MCH 28.5 MCHC 34.8 RDW 15.7 H Plt Count 73 L MPV 8.6 Absolute Neuts (auto) 1.5 Total Counted 100 Neutrophils % 39.3 L Neutrophils % (Manual) 43.0 Band Neutrophils % 3.0 Lymphocytes % 33.1 D Lymphocytes % (Manual) 24.0 Monocytes % 26.2 H Monocytes % (Manual) 25 H Eosinophils % 0.9 Eosinophils % (Manual) 3.0 Basophils % 0.5 Nucleated RBC % 1 H Metamyelocytes 2 D Hypochromia 1+ Platelet Estimate Decreased Platelet Comment No clumping noted Polychromasia 1+ Microcytosis 1+ Target Cells 1+ Sodium 133 L Potassium 3.6 Chloride 102 Carbon Dioxide 22 Anion Gap 9 BUN 6 L Creatinine 0.5 L Creat Clearance w eGFR > 60 POC Glucometer Random Glucose 103 Calcium 7.1 L Magnesium 1.5 L Total Bilirubin 1.0 AST 80 H ALT 73 H Alkaline Phosphatase 84 LD Total 786 H Total Protein 5.9 L Total Protein (PEP) Albumin 2.1 L Albumin (PEP) Globulin Albumin/Globulin Ratio Beta Globulins Stool O & P Wet [place] MORALES & SPEP Interp Total Protein (MORALES) Albumin (MORALES) Albumin/Globulin (MORALES) Asldq-3-Vtjfehcfr MORALES Dmvdv-7-Fmxfyhyzk MORALES Gamma Globulins (MORALES) MORALES M-Paolo MORALES Comments IEP IgG IEP IgA IEP IgM O & P Permanent Slide Blood Type AB POSITIVE Antibody Screen Negative Crossmatch 05/12/18 05/12/18 05/12/18 06:32 08:47 11:53 WBC RBC Hgb Hct MCV MCH MCHC RDW Plt Count MPV Absolute Neuts (auto) Total Counted Neutrophils % Neutrophils % (Manual) Band Neutrophils % Lymphocytes % Lymphocytes % (Manual) Monocytes % Monocytes % (Manual) Eosinophils % Eosinophils % (Manual) Basophils % Nucleated RBC % Metamyelocytes Hypochromia Platelet Estimate Platelet Comment Polychromasia Microcytosis Target Cells Sodium Potassium Chloride Carbon Dioxide Anion Gap BUN Creatinine Creat Clearance w eGFR POC Glucometer 111 123 Random Glucose Calcium Magnesium Total Bilirubin AST ALT Alkaline Phosphatase LD Total Total Protein Total Protein (PEP) Albumin Albumin (PEP) Globulin Albumin/Globulin Ratio Beta Globulins Stool O & P Wet [place] MORALES & SPEP Interp Total Protein (MORALES) Albumin (MORALES) Albumin/Globulin (MORALES) Lbihc-5-Yjnmxsfth MORALES Qvcvf-3-Xkafmvnzf MORALES Gamma Globulins (MORALES) MORALES M-Paolo MORALES Comments IEP IgG IEP IgA IEP IgM O & P Permanent Slide Blood Type AB POSITIVE Antibody Screen Crossmatch See Detail 05/12/18 17:46 WBC RBC Hgb Hct MCV MCH MCHC RDW Plt Count MPV Absolute Neuts (auto) Total Counted Neutrophils % Neutrophils % (Manual) Band Neutrophils % Lymphocytes % Lymphocytes % (Manual) Monocytes % Monocytes % (Manual) Eosinophils % Eosinophils % (Manual) Basophils % Nucleated RBC % Metamyelocytes Hypochromia Platelet Estimate Platelet Comment Polychromasia Microcytosis Target Cells Sodium Potassium Chloride Carbon Dioxide Anion Gap BUN Creatinine Creat Clearance w eGFR POC Glucometer 125 Random Glucose Calcium Magnesium Total Bilirubin AST ALT Alkaline Phosphatase LD Total Total Protein Total Protein (PEP) Albumin Albumin (PEP) Globulin Albumin/Globulin Ratio Beta Globulins Stool O & P Wet [place]ES & SPEP Interp Total Protein (MORALES) Albumin (MORALES) Albumin/Globulin (MORALES) Uouwb-3-Kixsnbzas MORALES Uzmct-0-Okdfwxmgx MORALES Gamma Globulins (MORALES) MORALES M-Paolo MORALES Comments IEP IgG IEP IgA IEP IgM O & P Permanent Slide Blood Type Antibody Screen Crossmatch Active Medications Generic Name Dose Route Start Last Admin Trade Name Freq PRN Reason Stop Dose Admin Acetaminophen 650 mg 05/06/18 23:39 05/11/18 17:20 Tylenol - PO 650 mg Q6H PRN Administration FEVER Amlodipine Besylate 5 mg 05/07/18 10:00 05/12/18 09:36 Norvasc - PO 5 mg DAILY KAMILAH Administration Atorvastatin Calcium 10 mg 05/07/18 22:00 05/11/18 22:08 Lipitor - PO 10 mg HS KAMILAH Administration Atovaquone 750 mg 05/11/18 08:00 05/12/18 18:30 Mepron - PO 750 mg BIDWM KAMILAH Administration Calcium Carbonate 500 mg 05/08/18 10:00 05/12/18 09:36 Os-Jah 500mg - PO 500 mg DAILY KAMILAH Administration Guaifenesin 10 ml 05/11/18 09:42 05/12/18 16:57 Diabetic Tussin Dm - PO 10 ml Q6H PRN Administration COUGH Sodium Chloride 1,000 mls @ 75 mls/hr 05/06/18 23:45 05/12/18 06:30 Normal Saline - IV Not Given ASDIR KAMILAH Doxycycline Hyclate 100 mg/ 100 mls @ 100 mls/hr 05/09/18 22:00 05/12/18 10: 20 Dextrose IVPB 100 mls/hr BID KAMILAH Administration Azithromycin 500 mg/ Dextrose 250 mls @ 250 mls/hr 05/10/18 12:45 05/12/18 11 :54 IVPB 250 mls/hr DAILY KAMILAH Administration Megestrol Acetate 40 mg 05/12/18 22:00 Megace - PO QID KAMILAH Metformin HCl 500 mg 05/07/18 07:00 05/12/18 06:34 Glucophage - PO 500 mg 0700 KAMILAH Administration Metoprolol Tartrate 50 mg 05/07/18 22:00 05/11/18 22:08 Lopressor - PO 50 mg HS KAMILAH Administration Pantoprazole Sodium 20 mg 05/07/18 15:30 05/12/18 09:36 Protonix - PO 20 mg DAILY KAMILAH Administration Valsartan 160 mg 05/07/18 10:00 05/12/18 09:36 Diovan - PO 160 mg DAILY KAMILAH Administration Patient is a 72 year old female, new patient to [facility], with past medical history of Hyperlipidemia, DM, UTI, Labile HTN; Diastolic dysfunction; History of chest pain syndrome, Diverticulosis was sent by her PCP (Dr. Werner) for evaluation of weakness and low appetite. ASSESSMENT Newly diagnosed colon mass ? 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 Thrombocytopenia Normocytic anemia Transaminitis Labile Hypertension Hyperlipidemia DM- A1c done 2 weeks ago was 6.5 as per the patient. Diastolic dysfunction H/o Chest pain syndrome- No active chest pain PLAN: # Normocytic anemia H/H 7.3. Received one unit, awaiting for the second unit of PRBC. Repeat CBC and keep Hct >25 Ferritin high d/t reactive, related to liver disease, babesia. normal iron, TIBC is low compatible with chronic illness ? liver disease ? other Colonoscopy on hold. # Newly diagnosed colon mass ? Malignant Found in CT abdomen/Pelvis 05/09/2018: Mass in descending colon. Colonoscopy on hold Treatment as per the results. SCD's Megesterol ordered # Hemolysis Although corrected reticulocyte count is 1.6, it is compatible with hemolysis given Low haptoglobulin, High LDH -likely secondary to babesia. Kwadwo test negative Will repeat LDH, Reticulocyte count Will monitor. # Thrombocytopenia-Unknown if it is acute or chronic Platelet count 77 on admission---> 66--->59-->65-->77 today Likely secondary to infection (underlying babesia) vs antibiotic use vs liver disease. # Reverse A/G ratio-r/o dysproteinemia or possible polyclonal gammopathy secondary to underlying liver disease. UPEP, IPEP, SPEP, quantitative immunoglobulins sent # Monocytosis Could be due to liver disease or infectious-viral or malignant. Will observe and consider flow cytometry. Will need to review peripheral smear. Rest as per primary. Plan of care discussed with the patient and her daughter. They verbalized understanding. Case discussed with Dr. Castellanos Dispo: We will continue to follow the patient. Thank you for this consultative opportunity. Visit type - Emergency Visit Emergency Visit: Yes ED Registration Date: 05/06/18 Care time: The patient presented to the Emergency Department on the above date and was hospitalized for further evaluation of their emergent condition. - New Patient This patient is new to me today: No - Critical Care Critical Care patient: No - Discharge Referral Referred to [facility] Med P.C.: No
--- NOTE | 2018-05-12 19:24 | PN ---
Teaching Attending Note Name of Resident: Razia Segura ATTENDING PHYSICIAN STATEMENT I saw and evaluated the patient. I reviewed the resident's note and discussed the case with the resident. I agree with the resident's findings and plan as documented. SUBJECTIVE:Patient seen and examined Tired and weak S/P one unit of packed cells Repletion of electrolytes Last Vital Signs Temp Pulse Resp BP Pulse Ox 98.3 F 111 H 24 154/84 97 05/12/18 18:30 05/12/18 18:30 05/12/18 18:30 05/12/18 18:30 05/11/18 21:00 Cor: RSR, No murmurs, No gallops Lungs: Clear to P&A Abd: Soft, Normal bowel sounds, No organomegaly Ext:No significant edema Skin: No rashes, Integument intact CBC, BMP 05/12/18 06:00 05/12/18 06:00 Current Medications Generic Name Dose Route Start Last Admin Trade Name Freq PRN Reason Stop Dose Admin Acetaminophen 650 mg 05/06/18 23:39 05/11/18 17:20 Tylenol - PO 650 mg Q6H PRN Administration FEVER Amlodipine Besylate 5 mg 05/07/18 10:00 05/12/18 09:36 Norvasc - PO 5 mg DAILY KAMILAH Administration Atorvastatin Calcium 10 mg 05/07/18 22:00 05/11/18 22:08 Lipitor - PO 10 mg HS KAMILAH Administration Atovaquone 750 mg 05/11/18 08:00 05/12/18 18:30 Mepron - PO 750 mg BIDWM KAMILAH Administration Calcium Carbonate 500 mg 05/08/18 10:00 05/12/18 09:36 Os-Jah 500mg - PO 500 mg DAILY KAMILAH Administration Guaifenesin 10 ml 05/11/18 09:42 05/12/18 16:57 Diabetic Tussin Dm - PO 10 ml Q6H PRN Administration COUGH Sodium Chloride 1,000 mls @ 75 mls/hr 05/06/18 23:45 05/12/18 06:30 Normal Saline - IV Not Given ASDIR KAIMLAH Doxycycline Hyclate 100 mg/ 100 mls @ 100 mls/hr 05/09/18 22:00 05/12/18 10: 20 Dextrose IVPB 100 mls/hr BID KAMILAH Administration Azithromycin 500 mg/ Dextrose 250 mls @ 250 mls/hr 05/10/18 12:45 05/12/18 11 :54 IVPB 250 mls/hr DAILY KAMILAH Administration Megestrol Acetate 40 mg 05/12/18 22:00 Megace - PO QID KAMILAH Metformin HCl 500 mg 05/07/18 07:00 05/12/18 06:34 Glucophage - PO 500 mg 0700 KAMILAH Administration Metoprolol Tartrate 50 mg 05/07/18 22:00 05/11/18 22:08 Lopressor - PO 50 mg HS KAMILAH Administration Pantoprazole Sodium 20 mg 05/07/18 15:30 05/12/18 09:36 Protonix - PO 20 mg DAILY KAMILAH Administration Valsartan 160 mg 05/07/18 10:00 05/12/18 09:36 Diovan - PO 160 mg DAILY KAMILAH Administration OBJECTIVE: ASSESSMENT AND PLAN:Imp: Babesiosis hemolysis Thrombocytopenia s/p transfusion Tachycardia colonic mass Plan Transfuse additional packed cells Antibiotics per ID Colonoscopy on hold Megace qid OOB PT
[2018-05-12] MEDS ORDERED: MEGESTROL ACETATE 40 MG TABLET PO SCH (22:00)
[2018-05-12] MEDS: MEGESTROL ACETATE 400 MG/10 ML UNIT DOSE CUP PO SCH (22:12)
[2018-05-12] MEDS: METOPROLOL TARTRATE 50 MG TABLET (FP) PO SCH (22:12)
[2018-05-12] MEDS: ATORVASTATIN CA 10 MG TABLET (FP) PO SCH (22:12)
[2018-05-13] MEDS: SODIUM CHLORIDE 1,000 ML IV SCH ×3 (01:42→23:33)
[2018-05-13] MEDS: metFORMIN HCL 500 MG TABLET (FP) PO SCH (07:01)
[2018-05-13 07:06] LABS: BASO % 0.8 % (0-2.0); EOS % 1.1 % (0-4.5); HEMOGLOBIN 12.1 GM/dL (10.7-15.3); MCH 28.7 pg (25.7-33.7); MCHC 34.5 g/dl (32.0-36.0); MEAN CELL VOLUME 83.1 fl (80-96); MEAN PLT VOLUME 8.4 fl (7.5-11.1); MONO % 23.5 % (3.8-10.2); NEUT % 34.6 % (42.8-82.8); PLATELET COUNT 73 K/MM3 (134-434); RBC 4.21 M/mm3 (3.60-5.2); RDW 15.9 % (11.6-15.6); WHITE BLOOD COUNT 4.7 K/mm3 (4.0-10.0)
[2018-05-13 07:57] LABS: ALBUMIN 2.2 g/dl (3.4-5.0); ALK PHOS 92 U/L (45-117); ANION GAP 8 MMOL/L (8-16); BILIRUBIN,TOTAL 1.3 mg/dL (0.2-1.0); BLOOD UREA NITROGEN 10 mg/dL (7-18); CALCIUM 7.8 mg/dL (8.5-10.1); CHLORIDE 105 mmol/L (98-107); CO2 23 mmol/L (21-32); CREATININE 0.5 mg/dL (0.55-1.3); GLUCOSE,RANDOM 112 mg/dL (74-106); MAGNESIUM 1.7 mg/dL (1.8-2.4); POTASSIUM 3.7 mmol/L (3.5-5.1); SGOT/AST 75 U/L (15-37); SGPT/ALT 65 U/L (13-61); SODIUM 136 mmol/L (136-145); TOT PROT 6.1 g/dl (6.4-8.2)
[2018-05-13] MEDS ORDERED: PT OWN MED DRAWER 7, Y5N ONE ×3 (09:48→17:28)
[2018-05-13] MEDS: CALCIUM (OYSTER SHELL) 500 MG TABLET (FP) PO SCH (09:52)
[2018-05-13] MEDS: amLODIPine BESYLATE 5 MG TABLET (FP) PO SCH (09:52)
[2018-05-13] MEDS: VALSARTAN 160 MG TABLET (UD) PO SCH (09:52)
[2018-05-13] MEDS: MEGESTROL ACETATE 400 MG/10 ML UNIT DOSE CUP PO SCH (09:52)
[2018-05-13] MEDS: AZITHROMYCIN IVPB 500 MG in DEXTROSE 5%-WATER - 250 ML IVPB SCH (09:52)
[2018-05-13] MEDS: PANTOPRAZOLE 20 MG TABLET (FP) PO SCH (09:52)
[2018-05-13] MEDS: ATOVAQUONE 750 MG/5 ML (UNIT-DOSE PACKAGING) PO SCH ×2 (10:11→17:56)
--- NOTE | 2018-05-13 10:29 | PN ---
Progress Note (short form) - Note Progress Note: Chief Complaint: Events noted, notes reviewed, sitting in a chair denies any chest pain or dyspnea History of Present Illness: Seen and examined. Events noted, notes reviewed, sitting in a chair denies any chest pain or dyspnea Colonoscopy delayed pending hematological stability Echocardiography dated December 28, 2016 revealed normal LV size and function, mild to moderate MR and mild TR MPI study dated December 28, 2016 revealed mild infero-apical ischemia with normal LV function with LVEF 83% Holter monitor dated December 28, 2017 revealed sinus rhythm with rare supraventricular and ventricular ectopic Medications: Current Medications Acetaminophen (Tylenol -) 650 mg PO Q6H PRN PRN Reason: FEVER Last Admin: 05/11/18 17:20 Dose: 650 mg Amlodipine Besylate (Norvasc -) 5 mg PO DAILY [facility] Last Admin: 05/13/18 09:52 Dose: 5 mg Atorvastatin Calcium (Lipitor -) 10 mg PO HS [facility] Last Admin: 05/12/18 22:12 Dose: 10 mg Atovaquone (Mepron -) 750 mg PO BIDWM [facility] Last Admin: 05/13/18 10:11 Dose: 750 mg Calcium Carbonate (Os-Jah 500mg -) 500 mg PO DAILY [facility] Last Admin: 05/13/18 09:52 Dose: 500 mg Guaifenesin (Diabetic Tussin Dm -) 10 ml PO Q6H PRN PRN Reason: COUGH Last Admin: 05/12/18 16:57 Dose: 10 ml Sodium Chloride (Normal Saline -) 1,000 mls @ 75 mls/hr IV ASDIR [facility] Last Admin: 05/13/18 07:01 Dose: 75 mls/hr Doxycycline Hyclate 100 mg/ (Dextrose) 100 mls @ 100 mls/hr IVPB BID [facility] Last Admin: 05/12/18 22:12 Dose: 100 mls/hr Azithromycin 500 mg/ Dextrose 250 mls @ 250 mls/hr IVPB DAILY [facility] Last Admin: 05/13/18 09:52 Dose: 250 mls/hr Megestrol Acetate (Megace Oral Suspension -) 400 mg PO DAILY [facility] Last Admin: 05/13/18 09:52 Dose: 400 mg Metformin HCl (Glucophage -) 500 mg PO 0700 [facility] Last Admin: 05/13/18 07:01 Dose: 500 mg Metoprolol Tartrate (Lopressor -) 50 mg PO HS [facility] Last Admin: 05/12/18 22:12 Dose: 50 mg Pantoprazole Sodium (Protonix -) 20 mg PO DAILY [facility] Last Admin: 05/13/18 09:52 Dose: 20 mg Valsartan (Diovan -) 160 mg PO DAILY [facility] Last Admin: 05/13/18 09:52 Dose: 160 mg Vital Signs: Last Vital Signs Temp Pulse Resp BP Pulse Ox 97.7 F 63 20 135/76 97 05/13/18 08:46 05/13/18 08:46 05/13/18 08:46 05/13/18 08:46 05/12/18 21:00 Intake & Output 05/10/18 05/11/18 05/12/18 05/13/18 23:59 23:59 23:59 23:59 Intake Total 1400 2325 2045 550 Output Total 600 Balance 1400 2325 1445 550 Weight 129 lb 14.4 oz Neck: Supple Negative JVD No Bruit Respiratory: Clear to A&P Cardiovascular: S1 S2 Regular Rate and Rhythm Gastrointestinal: Soft Benign Normal Bowel Sounds Ext: Negative Edema Labs: CBC, BMP 05/13/18 06:10 05/13/18 06:10 Assessment/Plan ASSESSMENT: 1. Babesiosis 2. Dyspepsia and nausea referable to diabetic gastroparesis vs viral gastroparesis 3. Hemolytic anemia/thrombocytopenia 4. Reactive sinus tachycardia, resolved 5. Chest pain syndrome/coronary artery disease abnormal MPI study angina pectoris, stable 6. Diastolic LV dysfunction with class 0 NYHA classification LV failure 7. HTN 8. DM 9. Hyperlipidemia 10. Colon mass for further evaluation, awaiting colonoscopy PLAN: 1. Antibiotics as per the primary team 2. Continue Toprol XL 3. Continue Norvasc 4. Continue Diovan 5. Continue Lipitor 6. Continue to hold ASA pending hematological stability 7. Awaiting colonoscopy pending hematological stability Braydon Ho M.D.
[2018-05-13] MEDS: DOXYCYCLINE INJECTION 100 MG in DEXTROSE 5%-WATER - 100 ML IVPB SCH ×2 (11:58→21:42)
--- NOTE | 2018-05-13 13:04 | PN ---
Progress Note, Physician Chief Complaint: Pt lying in bed,tiredness,,lack of appetitie still present,sinus afebrile anemia improved,s/p transfusion,hypomagnesemia Ct abdomen and pelvis shows colonic mass Peripheral smear shows babesiosis Gi,ID,Oncology,endocrine F/u appreciated Hypokalemia imporoved hyponatremia improvement Elevated LFT,low Platelet blood cul and urine cul negative stool studies negative awaiting for colonoscopy,will schedule once pt is stable - Current Medication List Current Medications: Active Medications Acetaminophen (Tylenol -) 650 mg PO Q6H PRN PRN Reason: FEVER Last Admin: 05/11/18 17:20 Dose: 650 mg Amlodipine Besylate (Norvasc -) 5 mg PO DAILY [facility] Last Admin: 05/13/18 09:52 Dose: 5 mg Atorvastatin Calcium (Lipitor -) 10 mg PO HS [facility] Last Admin: 05/12/18 22:12 Dose: 10 mg Atovaquone (Mepron -) 750 mg PO BIDWM [facility] Last Admin: 05/13/18 10:11 Dose: 750 mg Calcium Carbonate (Os-Jah 500mg -) 500 mg PO DAILY [facility] Last Admin: 05/13/18 09:52 Dose: 500 mg Guaifenesin (Diabetic Tussin Dm -) 10 ml PO Q6H PRN PRN Reason: COUGH Last Admin: 05/12/18 16:57 Dose: 10 ml Sodium Chloride (Normal Saline -) 1,000 mls @ 75 mls/hr IV ASDIR [facility] Last Admin: 05/13/18 07:01 Dose: 75 mls/hr Doxycycline Hyclate 100 mg/ (Dextrose) 100 mls @ 100 mls/hr IVPB BID [facility] Last Admin: 05/13/18 11:58 Dose: 100 mls/hr Azithromycin 500 mg/ Dextrose 250 mls @ 250 mls/hr IVPB DAILY [facility] Last Admin: 05/13/18 09:52 Dose: 250 mls/hr Megestrol Acetate (Megace Oral Suspension -) 400 mg PO DAILY [facility] Last Admin: 05/13/18 09:52 Dose: 400 mg Metformin HCl (Glucophage -) 500 mg PO 0700 [facility] Last Admin: 05/13/18 07:01 Dose: 500 mg Metoprolol Tartrate (Lopressor -) 50 mg PO HS [facility] Last Admin: 05/12/18 22:12 Dose: 50 mg Pantoprazole Sodium (Protonix -) 20 mg PO DAILY [facility] Last Admin: 05/13/18 09:52 Dose: 20 mg Valsartan (Diovan -) 160 mg PO DAILY [facility] Last Admin: 05/13/18 09:52 Dose: 160 mg - Objective Vital Signs: Vital Signs Temperature 97.7 F 05/13/18 08:46 Pulse Rate 63 05/13/18 08:46 Respiratory Rate 20 05/13/18 08:46 Blood Pressure 135/76 05/13/18 08:46 O2 Sat by Pulse Oximetry (%) 97 05/12/18 21:00 Constitutional: Yes: No Distress Eyes: Yes: Conjunctiva Clear HENT: Yes: Atraumatic Neck: Yes: Supple Cardiovascular: Yes: Regular Rate and Rhythm Respiratory: Yes: Regular, CTA Bilaterally Gastrointestinal: Yes: Normal Bowel Sounds, Soft Musculoskeletal: Yes: WNL Extremities: Yes: WNL Edema: No Peripheral Pulses WNL: Yes Neurological: Yes: WNL, Alert ...Motor Strength: WNL Psychiatric: Yes: WNL, Alert Labs: CBC, BMP 05/13/18 06:10 05/13/18 06:10 INR, PTT INR 1.36 (0.83-1.09) H 05/08/18 08:00 Assessment/Plan colonic mass Babesiosis anemia,hemolytic,severe tiredness,s/p transfusion hypomagnesemia ,hyponatremia improved POOR appetite, and po intake Elevated LFT,low platelet Fatigue, generalised weakness PLAN Antibiotics as per ID GI F/u Continue Metformin,metoprolol and amlodipine mg suppliment and Calcium suppliment will monitor labs endocrine ,hematology f/u
[2018-05-13 13:13] LABS: PLATELET ESTIMATE DECREASED
[2018-05-13] MEDS ORDERED: MAGNESIUM OXIDE 400 MG TABLET (FP) PO ONE (13:30)
[2018-05-13] MEDS: guaiFENesin/D-M SUGAR-FREE/ACLHOL-FREE 118 ML BOTTLE PO PRN (16:18)
[2018-05-13] MEDS: METOPROLOL TARTRATE 50 MG TABLET (FP) PO SCH (21:42)
[2018-05-13] MEDS: ATORVASTATIN CA 10 MG TABLET (FP) PO SCH (21:42)
[2018-05-14 00:06] LABS: E. chaffeensis Negative (Negative)
[2018-05-14] MEDS: SODIUM CHLORIDE 1,000 ML IV SCH ×2 (06:48→14:54)
[2018-05-14] MEDS: metFORMIN HCL 500 MG TABLET (FP) PO SCH (06:49)
[2018-05-14] MEDS ORDERED: PT OWN MED DRAWER 7, Y5N ONE (07:36)
[2018-05-14 07:47] LABS: BASO % 1.3 % (0-2.0); EOS % 1.5 % (0-4.5); HEMATOCRIT 34.6 % (32.4-45.2); HEMOGLOBIN 11.9 GM/dL (10.7-15.3); LYMPH % 37.1 % (8-40); MCH 28.7 pg (25.7-33.7); MCHC 34.4 g/dl (32.0-36.0); MEAN CELL VOLUME 83.4 fl (80-96); MONO % 19.9 % (3.8-10.2); NEUT % 40.2 % (42.8-82.8); PLATELET COUNT 83 K/MM3 (134-434); RBC 4.15 M/mm3 (3.60-5.2); RDW 16.3 % (11.6-15.6); WHITE BLOOD COUNT 4.3 K/mm3 (4.0-10.0)
[2018-05-14] MEDS: ATOVAQUONE 750 MG/5 ML (UNIT-DOSE PACKAGING) PO SCH ×2 (08:30→17:23)
[2018-05-14 08:56] LABS: ALBUMIN 2.2 g/dl (3.4-5.0); ANION GAP 7 MMOL/L (8-16); BLOOD UREA NITROGEN 10 mg/dL (7-18); CALCIUM 7.5 mg/dL (8.5-10.1); CHLORIDE 105 mmol/L (98-107); CO2 22 mmol/L (21-32); GLUCOSE,RANDOM 95 mg/dL (74-106); MAGNESIUM 1.7 mg/dL (1.8-2.4); POTASSIUM 3.7 mmol/L (3.5-5.1); SODIUM 134 mmol/L (136-145)
[2018-05-14 09:00] LABS: ALK PHOS 99 U/L (45-117); BILIRUBIN,TOTAL 0.9 mg/dL (0.2-1.0); CREATININE 0.6 mg/dL (0.55-1.3); SGOT/AST 108 U/L (15-37); SGPT/ALT 83 U/L (13-61); TOT PROT 6.3 g/dl (6.4-8.2)
[2018-05-14] MEDS: AZITHROMYCIN IVPB 500 MG in DEXTROSE 5%-WATER - 250 ML IVPB SCH (09:00)
[2018-05-14] MEDS: VALSARTAN 160 MG TABLET (UD) PO SCH (09:04)
[2018-05-14] MEDS: amLODIPine BESYLATE 5 MG TABLET (FP) PO SCH (09:04)
[2018-05-14] MEDS: PANTOPRAZOLE 20 MG TABLET (FP) PO SCH (09:04)
[2018-05-14] MEDS: MEGESTROL ACETATE 400 MG/10 ML UNIT DOSE CUP PO SCH (09:04)
[2018-05-14] MEDS: CALCIUM (OYSTER SHELL) 500 MG TABLET (FP) PO SCH (09:04)
--- NOTE | 2018-05-14 09:42 | PN ---
Progress Note (short form) - Note Progress Note: Chief Complaint: Events noted, notes reviewed, sitting in a chair denies any chest pain or dyspnea, apatite improving History of Present Illness: Seen and examined. Events noted, notes reviewed, sitting in a chair denies any chest pain or dyspnea, apatite improving Colonoscopy delayed pending hematological stability/thrombocytopenia persists Echocardiography dated December 28, 2016 revealed normal LV size and function, mild to moderate MR and mild TR MPI study dated December 28, 2016 revealed mild infero-apical ischemia with normal LV function with LVEF 83% Holter monitor dated December 28, 2017 revealed sinus rhythm with rare supraventricular and ventricular ectopic Medications: Current Medications Acetaminophen (Tylenol -) 650 mg PO Q6H PRN PRN Reason: FEVER Last Admin: 05/11/18 17:20 Dose: 650 mg Amlodipine Besylate (Norvasc -) 5 mg PO DAILY [facility] Last Admin: 05/14/18 09:04 Dose: 5 mg Atorvastatin Calcium (Lipitor -) 10 mg PO HS [facility] Last Admin: 05/13/18 21:42 Dose: 10 mg Atovaquone (Mepron -) 750 mg PO BIDWM [facility] Last Admin: 05/14/18 08:30 Dose: 750 mg Calcium Carbonate (Os-Jah 500mg -) 500 mg PO DAILY [facility] Last Admin: 05/14/18 09:04 Dose: 500 mg Guaifenesin (Diabetic Tussin Dm -) 10 ml PO Q6H PRN PRN Reason: COUGH Last Admin: 05/13/18 16:18 Dose: 10 ml Sodium Chloride (Normal Saline -) 1,000 mls @ 75 mls/hr IV ASDIR [facility] Last Admin: 05/14/18 06:48 Dose: Not Given Doxycycline Hyclate 100 mg/ (Dextrose) 100 mls @ 100 mls/hr IVPB BID [facility] Last Admin: 05/13/18 21:42 Dose: 100 mls/hr Azithromycin 500 mg/ Dextrose 250 mls @ 250 mls/hr IVPB DAILY [facility] Last Admin: 05/14/18 09:00 Dose: 250 mls/hr Megestrol Acetate (Megace Oral Suspension -) 400 mg PO DAILY [facility] Last Admin: 05/14/18 09:04 Dose: 400 mg Metformin HCl (Glucophage -) 500 mg PO 0700 [facility] Last Admin: 05/14/18 06:49 Dose: 500 mg Metoprolol Tartrate (Lopressor -) 50 mg PO HS [facility] Last Admin: 05/13/18 21:42 Dose: 50 mg Pantoprazole Sodium (Protonix -) 20 mg PO DAILY [facility] Last Admin: 05/14/18 09:04 Dose: 20 mg Valsartan (Diovan -) 160 mg PO DAILY [facility] Last Admin: 05/14/18 09:04 Dose: 160 mg Vital Signs: Last Vital Signs Temp Pulse Resp BP Pulse Ox 97.9 F 99 H 20 132/79 97 05/14/18 08:56 05/14/18 08:56 05/14/18 08:56 05/14/18 08:56 05/13/18 21:00 Intake & Output 05/11/18 05/12/18 05/13/18 05/14/18 23:59 23:59 23:59 23:59 Intake Total 2325 2045 1300 825 Output Total 600 Balance 2325 1445 1300 825 Weight 129 lb 14.4 oz Neck: Supple Negative JVD No Bruit Respiratory: Clear to A&P Cardiovascular: S1 S2 Regular Rate and Rhythm Gastrointestinal: Soft Benign Normal Bowel Sounds Ext: Negative Edema Labs: CBC, BMP 05/14/18 07:15 05/14/18 07:15 Assessment/Plan ASSESSMENT: 1. Babesiosis 2. Dyspepsia and nausea referable to diabetic gastroparesis vs viral gastroparesis 3. Hemolytic anemia/thrombocytopenia 4. Reactive sinus tachycardia, resolved 5. Chest pain syndrome/coronary artery disease abnormal MPI study angina pectoris, stable 6. Diastolic LV dysfunction with class 0 NYHA classification LV failure 7. HTN 8. DM 9. Hyperlipidemia 10. Colon mass for further evaluation, awaiting colonoscopy PLAN: 1. Antibiotics as per the primary team 2. Continue Toprol XL 3. Continue Norvasc 4. Continue Diovan 5. Continue Lipitor 6. As outlined continue to hold ASA pending hematological stability 7. As outlined awaiting colonoscopy pending hematological stability Braydon Ho M.D.
[2018-05-14] MEDS ORDERED: MAGNESIUM OXIDE 400 MG TABLET (FP) PO ONE (10:45)
--- NOTE | 2018-05-14 10:45 | PN ---
Progress Note, Physician Chief Complaint: Pt lying in bed,tiredness,,lack of appetitie still present,sinus afebrile anemia improved,s/p transfusion,hypomagnesemia Ct abdomen and pelvis shows colonic mass Peripheral smear shows babesiosis Gi,ID,Oncology,endocrine F/u appreciated Hypokalemia imporoved hyponatremia improvement Elevated LFT,low Platelet blood cul and urine cul negative stool studies negative awaiting for colonoscopy,will schedule once pt is stable - Current Medication List Current Medications: Active Medications Acetaminophen (Tylenol -) 650 mg PO Q6H PRN PRN Reason: FEVER Last Admin: 05/11/18 17:20 Dose: 650 mg Amlodipine Besylate (Norvasc -) 5 mg PO DAILY [facility] Last Admin: 05/14/18 09:04 Dose: 5 mg Atorvastatin Calcium (Lipitor -) 10 mg PO HS [facility] Last Admin: 05/13/18 21:42 Dose: 10 mg Atovaquone (Mepron -) 750 mg PO BIDWM [facility] Last Admin: 05/14/18 08:30 Dose: 750 mg Calcium Carbonate (Os-Jah 500mg -) 500 mg PO DAILY [facility] Last Admin: 05/14/18 09:04 Dose: 500 mg Guaifenesin (Diabetic Tussin Dm -) 10 ml PO Q6H PRN PRN Reason: COUGH Last Admin: 05/13/18 16:18 Dose: 10 ml Sodium Chloride (Normal Saline -) 1,000 mls @ 75 mls/hr IV ASDIR [facility] Last Admin: 05/14/18 06:48 Dose: Not Given Doxycycline Hyclate 100 mg/ (Dextrose) 100 mls @ 100 mls/hr IVPB BID [facility] Last Admin: 05/13/18 21:42 Dose: 100 mls/hr Azithromycin 500 mg/ Dextrose 250 mls @ 250 mls/hr IVPB DAILY [facility] Last Admin: 05/14/18 09:00 Dose: 250 mls/hr Megestrol Acetate (Megace Oral Suspension -) 400 mg PO DAILY [facility] Last Admin: 05/14/18 09:04 Dose: 400 mg Metformin HCl (Glucophage -) 500 mg PO 0700 [facility] Last Admin: 05/14/18 06:49 Dose: 500 mg Metoprolol Succinate (Toprol Xl -) [address] [facility] Pantoprazole Sodium (Protonix -) 20 mg PO DAILY [facility] Last Admin: 05/14/18 09:04 Dose: 20 mg Valsartan (Diovan -) 160 mg PO DAILY [facility] Last Admin: 05/14/18 09:04 Dose: 160 mg - Objective Vital Signs: Vital Signs Temperature 97.9 F 05/14/18 08:56 Pulse Rate 99 H 05/14/18 08:56 Respiratory Rate 20 05/14/18 08:56 Blood Pressure 132/79 05/14/18 08:56 O2 Sat by Pulse Oximetry (%) 97 05/13/18 21:00 Constitutional: Yes: No Distress Eyes: Yes: Conjunctiva Clear HENT: Yes: Atraumatic Neck: Yes: Supple, Trachea Midline Cardiovascular: Yes: Regular Rate and Rhythm Respiratory: Yes: Regular, CTA Bilaterally Gastrointestinal: Yes: Normal Bowel Sounds, Soft Musculoskeletal: Yes: WNL Extremities: Yes: WNL Edema: No Peripheral Pulses WNL: Yes Neurological: Yes: WNL ...Motor Strength: WNL Psychiatric: Yes: WNL, Alert Labs: CBC, BMP 05/14/18 07:15 05/14/18 07:15 INR, PTT INR 1.36 (0.83-1.09) H 05/08/18 08:00 Assessment/Plan colonic mass Babesiosis anemia,hemolytic,severe tiredness,s/p transfusion hypomagnesemia ,hyponatremia improved POOR appetite, and po intake Elevated LFT,low platelet Fatigue, generalised weakness PLAN Antibiotics as per ID GI F/u Continue Metformin,metoprolol and amlodipine mg suppliment and Calcium suppliment will monitor labs endocrine ,hematology f/u foir colonoscopy once pt is stable
[2018-05-14] MEDS: DOXYCYCLINE INJECTION 100 MG in DEXTROSE 5%-WATER - 100 ML IVPB SCH ×2 (10:47→21:56)
[2018-05-14] MEDS: ATORVASTATIN CA 10 MG TABLET (FP) PO SCH (21:56)
--- NOTE | 2018-05-14 22:05 | EKG ---
Test Reason : Blood Pressure : / mmHG Vent. Rate : 104 BPM Atrial Rate : 104 BPM P-R Int : 126 ms QRS Dur : 068 ms QT Int : 342 ms P-R-T Axes : 051 019 031 degrees QTc Int : 449 ms SINUS TACHYCARDIA LOW VOLTAGE QRS BORDERLINE ECG WHEN COMPARED WITH ECG OF 08-MAY-2018 19:39, NO SIGNIFICANT CHANGE WAS FOUND Confirmed by REY DIANA MD ([id number]) on 05/14/2018 10:05:26 PM Referred By: TINO THOMPSON DR Confirmed By:REY DIANA MD
[2018-05-15] MEDS: SODIUM CHLORIDE 1,000 ML IV SCH ×3 (06:02→22:02)
[2018-05-15] MEDS: metFORMIN HCL 500 MG TABLET (FP) PO SCH (06:45)
[2018-05-15 07:55] LABS: BASO % 0.8 % (0-2.0); EOS % 1.6 % (0-4.5); HEMATOCRIT 35.6 % (32.4-45.2); HEMOGLOBIN 12.1 GM/dL (10.7-15.3); LYMPH % 36.7 % (8-40); MCH 28.6 pg (25.7-33.7); MCHC 33.9 g/dl (32.0-36.0); MEAN CELL VOLUME 84.4 fl (80-96); MEAN PLT VOLUME 8.3 fl (7.5-11.1); MONO % 19.1 % (3.8-10.2); NEUT % 41.8 % (42.8-82.8); PLATELET COUNT 87 K/MM3 (134-434); RBC 4.22 M/mm3 (3.60-5.2); RDW 16.3 % (11.6-15.6); WHITE BLOOD COUNT 4.9 K/mm3 (4.0-10.0)
[2018-05-15] MEDS: ATOVAQUONE 750 MG/5 ML (UNIT-DOSE PACKAGING) PO SCH ×2 (08:23→18:09)
[2018-05-15 08:32] LABS: ALBUMIN 2.3 g/dl (3.4-5.0); ANION GAP 12 MMOL/L (8-16); BILIRUBIN,TOTAL 0.7 mg/dL (0.2-1.0); BLOOD UREA NITROGEN 8 mg/dL (7-18); CALCIUM 7.8 mg/dL (8.5-10.1); CHLORIDE 108 mmol/L (98-107); CO2 19 mmol/L (21-32); CREATININE 0.5 mg/dL (0.55-1.3); GLUCOSE,RANDOM 101 mg/dL (74-106); MAGNESIUM 1.8 mg/dL (1.8-2.4); POTASSIUM 3.9 mmol/L (3.5-5.1); SGOT/AST 84 U/L (15-37); SGPT/ALT 79 U/L (13-61); SODIUM 139 mmol/L (136-145); TOT PROT 6.3 g/dl (6.4-8.2)
[2018-05-15 08:33] LABS: ALK PHOS 92 U/L (45-117)
--- NOTE | 2018-05-15 09:38 | PN ---
Progress Note, Physician Chief Complaint: Pt lying in bed,tiredness,,lack of appetitie still present,sinus tachycardia anemia improved,s/p transfusion, Ct abdomen and pelvis shows colonic mass Peripheral smear no parasytemia Gi,ID,Oncology,endocrine F/u appreciated Hypokalemia imporoved hyponatremia improved Elevated LFT,low Platelet blood cul and urine cul negative stool studies negative awaiting for colonoscopy,will schedule once pt is stable - Current Medication List Current Medications: Active Medications Acetaminophen (Tylenol -) 650 mg PO Q6H PRN PRN Reason: FEVER Last Admin: 05/11/18 17:20 Dose: 650 mg Amlodipine Besylate (Norvasc -) 5 mg PO DAILY [facility] Last Admin: 05/14/18 09:04 Dose: 5 mg Atorvastatin Calcium (Lipitor -) 10 mg PO HS [facility] Last Admin: 05/14/18 21:56 Dose: 10 mg Atovaquone (Mepron -) 750 mg PO BIDWM [facility] Last Admin: 05/15/18 08:23 Dose: 750 mg Calcium Carbonate (Os-Jah 500mg -) 500 mg PO DAILY [facility] Last Admin: 05/14/18 09:04 Dose: 500 mg Guaifenesin (Diabetic Tussin Dm -) 10 ml PO Q6H PRN PRN Reason: COUGH Last Admin: 05/13/18 16:18 Dose: 10 ml Sodium Chloride (Normal Saline -) 1,000 mls @ 75 mls/hr IV ASDIR [facility] Last Admin: 05/15/18 06:03 Dose: 75 mls/hr Doxycycline Hyclate 100 mg/ (Dextrose) 100 mls @ 100 mls/hr IVPB BID [facility] Last Admin: 05/14/18 21:56 Dose: 100 mls/hr Azithromycin 500 mg/ Dextrose 250 mls @ 250 mls/hr IVPB DAILY [facility] Last Admin: 05/14/18 09:00 Dose: 250 mls/hr Megestrol Acetate (Megace Oral Suspension -) 400 mg PO DAILY [facility] Last Admin: 05/14/18 09:04 Dose: 400 mg Metformin HCl (Glucophage -) 500 mg PO 0700 [facility] Last Admin: 05/15/18 06:45 Dose: 500 mg Metoprolol Succinate (Toprol Xl -) 50 mg PO HS [facility] Last Admin: 05/14/18 21:55 Dose: 50 mg Pantoprazole Sodium (Protonix -) 20 mg PO DAILY [facility] Last Admin: 05/14/18 09:04 Dose: 20 mg Valsartan (Diovan -) 160 mg PO DAILY [facility] Last Admin: 05/14/18 09:04 Dose: 160 mg - Objective Vital Signs: Vital Signs Temperature 98.1 F 05/15/18 06:00 Pulse Rate 86 05/15/18 06:00 Respiratory Rate 18 05/15/18 06:00 Blood Pressure 124/74 05/15/18 06:00 O2 Sat by Pulse Oximetry (%) 98 05/14/18 21:00 Constitutional: Yes: No Distress Eyes: Yes: Conjunctiva Clear HENT: Yes: Atraumatic Neck: Yes: Supple, Trachea Midline Cardiovascular: Yes: Regular Rate and Rhythm Respiratory: Yes: Regular, CTA Bilaterally Gastrointestinal: Yes: WNL, Normal Bowel Sounds, Soft Musculoskeletal: Yes: WNL Extremities: Yes: WNL Edema: No Peripheral Pulses WNL: Yes Neurological: Yes: WNL, Alert, Oriented ...Motor Strength: WNL Psychiatric: Yes: WNL, Alert, Oriented Labs: CBC, BMP 05/15/18 06:20 05/15/18 06:20 INR, PTT INR 1.36 (0.83-1.09) H 05/08/18 08:00 Assessment/Plan colonic mass Babesiosis,no parasytemia in the peripheral blood anemia,hemolytic,severe tiredness,s/p transfusion ,hyponatremia improved POOR appetite, and po intake Elevated LFT,low platelet Fatigue, generalised weakness PLAN Antibiotics as per ID GI F/u Continue Metformin,metoprolol and amlodipine will monitor labs endocrine ,hematology f/u foir colonoscopy once pt is stable
--- NOTE | 2018-05-15 10:29 | PN ---
Progress Note, Physician History of Present Illness: Afebrile, resolving hemolysis, reactive sinus tachycardia noted, EGD and colonoscopy rescheduled Tuesday. - Current Medication List Current Medications: Active Medications Acetaminophen (Tylenol -) 650 mg PO Q6H PRN PRN Reason: FEVER Last Admin: 05/11/18 17:20 Dose: 650 mg Amlodipine Besylate (Norvasc -) 5 mg PO DAILY [facility] Last Admin: 05/14/18 09:04 Dose: 5 mg Atorvastatin Calcium (Lipitor -) 10 mg PO HS [facility] Last Admin: 05/14/18 21:56 Dose: 10 mg Atovaquone (Mepron -) 750 mg PO BIDWM [facility] Last Admin: 05/15/18 08:23 Dose: 750 mg Calcium Carbonate (Os-Jah 500mg -) 500 mg PO DAILY [facility] Last Admin: 05/14/18 09:04 Dose: 500 mg Guaifenesin (Diabetic Tussin Dm -) 10 ml PO Q6H PRN PRN Reason: COUGH Last Admin: 05/13/18 16:18 Dose: 10 ml Sodium Chloride (Normal Saline -) 1,000 mls @ 75 mls/hr IV ASDIR [facility] Last Admin: 05/15/18 06:03 Dose: 75 mls/hr Doxycycline Hyclate 100 mg/ (Dextrose) 100 mls @ 100 mls/hr IVPB BID [facility] Last Admin: 05/14/18 21:56 Dose: 100 mls/hr Azithromycin 500 mg/ Dextrose 250 mls @ 250 mls/hr IVPB DAILY [facility] Last Admin: 05/14/18 09:00 Dose: 250 mls/hr Megestrol Acetate (Megace Oral Suspension -) 400 mg PO DAILY [facility] Last Admin: 05/14/18 09:04 Dose: 400 mg Metformin HCl (Glucophage -) 500 mg PO 0700 [facility] Last Admin: 05/15/18 06:45 Dose: 500 mg Metoprolol Succinate (Toprol Xl -) 50 mg PO HS [facility] Last Admin: 05/14/18 21:55 Dose: 50 mg Pantoprazole Sodium (Protonix -) 20 mg PO DAILY [facility] Last Admin: 05/14/18 09:04 Dose: 20 mg Valsartan (Diovan -) 160 mg PO DAILY [facility] Last Admin: 05/14/18 09:04 Dose: 160 mg - Objective Vital Signs: Vital Signs Temperature 98.1 F 09/17/18 06:00 Pulse Rate 86 05/15/18 06:00 Respiratory Rate 18 05/15/18 06:00 Blood Pressure 124/74 05/15/18 06:00 O2 Sat by Pulse Oximetry (%) 98 05/14/18 21:00 Constitutional: Yes: No Distress, Calm, Thin Neck: Yes: Supple Cardiovascular: Yes: Tachycardia Respiratory: Yes: Regular, CTA Bilaterally Gastrointestinal: Yes: Normal Bowel Sounds, Soft Edema: No Labs: CBC, BMP 05/15/18 06:20 05/15/18 06:20 INR, PTT INR 1.36 (0.83-1.09) H 05/08/18 08:00 Problem List - Problems (1) Diastolic dysfunction Code(s): I51.9 - HEART DISEASE, UNSPECIFIED (2) Abnormal LFTs (liver function tests) Code(s): R94.5 - ABNORMAL RESULTS OF LIVER FUNCTION STUDIES (3) Fatigue Code(s): R53.83 - OTHER FATIGUE Qualifiers: Fatigue type: unspecified Qualified Code(s): R53.83 - Other fatigue (4) Hyperlipidemia associated with type 2 diabetes mellitus Code(s): E11.69 - TYPE 2 DIABETES MELLITUS WITH OTHER SPECIFIED COMPLICATION; E78.5 - HYPERLIPIDEMIA, UNSPECIFIED (5) Hypertension Code(s): I10 - ESSENTIAL (PRIMARY) HYPERTENSION Qualifiers: Hypertension type: essential hypertension Qualified Code(s): I10 - Essential (primary) hypertension (6) Poor appetite Code(s): R63.0 - ANOREXIA (7) Diabetic gastroparesis Code(s): E11.43 - TYPE 2 DIABETES W DIABETIC AUTONOMIC (POLY)NEUROPATHY; K31.84 - GASTROPARESIS (8) Babesiosis Code(s): B60.0 - BABESIOSIS Assessment/Plan MPI December 28, 2016 Mild inferoapical ischemia, LVEF 83% Echo December 28, 2016 Normal LV size and fxn, mild-mod MR, mild TR Holter December 28, 2017: SR with rare supraventricular and ventricular ectopic 1. Babesiosis resolving 2. Dyspepsia and nausea referable to diabetic gastroparesis vs viral gastroparesis 3. Hemolytic anemia/thrombocytopenia 4. Reactive sinus tachycardia, resolved 5. Chest pain syndrome/coronary artery disease abnormal MPI study angina pectoris, stable 6. Diastolic LV dysfunction with class 0 NYHA classification LV failure 7. HTN 8. DM 9. Hyperlipidemia 10. Colon mass for further evaluation, awaiting colonoscopy PLAN: 1. Complete empiric antibiotics as per the primary team, cultures clearing 2. Continue Toprol XL 50 qd 3. Continue Norvasc 5 qd 4. Continue Diovan 160 qd 5. Continue Lipitor 10 qd 6. As outlined continue to hold ASA pending hematological stability 7. As outlined awaiting EGD/colonoscopy pending hematological stability
[2018-05-15] MEDS ORDERED: PT OWN MED DRAWER 7, Y5N ONE ×2 (10:56→15:38)
[2018-05-15] MEDS: DOXYCYCLINE INJECTION 100 MG in DEXTROSE 5%-WATER - 100 ML IVPB SCH ×2 (11:04→22:02)
[2018-05-15] MEDS: MEGESTROL ACETATE 400 MG/10 ML UNIT DOSE CUP PO SCH (11:04)
[2018-05-15] MEDS: CALCIUM (OYSTER SHELL) 500 MG TABLET (FP) PO SCH (11:05)
[2018-05-15] MEDS: PANTOPRAZOLE 20 MG TABLET (FP) PO SCH (11:05)
[2018-05-15] MEDS: VALSARTAN 160 MG TABLET (UD) PO SCH (11:05)
[2018-05-15] MEDS: amLODIPine BESYLATE 5 MG TABLET (FP) PO SCH (11:05)
--- NOTE | 2018-05-15 12:29 | PN ---
GI Progress Note Subjective: GI NOte: Fatmata is much improved and has a slight appetite. She continues to have early satiety. She does not feel that she can do the bowel prep. Given her UGI complaints I have advised that she undergo both an EGD and a colonoscopy. The combined risks were discussed with her,her and daughter and she has signed an informed consent. - Objective Vital Signs: Vital Signs Temperature 98.6 F 05/15/18 10:49 Pulse Rate 109 H 05/15/18 10:49 Respiratory Rate 18 05/15/18 10:49 Blood Pressure 145/95 05/15/18 10:49 O2 Sat by Pulse Oximetry (%) 98 05/14/18 21:00 Laboratory Tests 05/15/18 05/15/18 06:20 06:20 Hgb 12.1 Plt Count 87 L AST 84 H ALT 79 H Alkaline Phosphatase 92 Constitutional: No Distress ...Auscultate: Yes: Normoactive Bowel Sounds ...Palpate: Yes: Soft, Other (nontender) Labs: CBC, BMP 05/15/18 06:20 05/15/18 06:20 INR, PTT INR 1.36 (0.83-1.09) H 05/08/18 08:00 Assessment/Plan Colonoscopy and EGD scheduled for 05/19 if medically cleared. Problem List - Problems (1) Abnormal abdominal CT scan Assessment/Plan: I have rescheduled EGD and colonoscopy for 05/19 to allow Fatmata further recovery. Anticipate that her platelet count will be begin to improve as her LFTs are doing.. Code(s): R93.5 - ABN FINDINGS ON DX IMAGING OF ABD REGIONS, INC RETROPERITON (2) Babesiosis Code(s): B60.0 - BABESIOSIS (3) Abnormal LFTs (liver function tests) Assessment/Plan: The abnormal LFTs are consistent with reactive hepatopathy related to babesiosis and to hemolysis. Code(s): R94.5 - ABNORMAL RESULTS OF LIVER FUNCTION STUDIES (4) Abdominal pain Code(s): R10.9 - UNSPECIFIED ABDOMINAL PAIN (5) Diverticula of colon Code(s): K57.30 - DVRTCLOS OF LG INT W/O PERFORATION OR ABSCESS W/O BLEEDING (6) Hypertension Code(s): I10 - ESSENTIAL (PRIMARY) HYPERTENSION Qualifiers: Hypertension type: essential hypertension Qualified Code(s): I10 - Essential (primary) hypertension (7) Hyperlipidemia associated with type 2 diabetes mellitus Code(s): E11.69 - TYPE 2 DIABETES MELLITUS WITH OTHER SPECIFIED COMPLICATION; E78.5 - HYPERLIPIDEMIA, UNSPECIFIED (8) Nausea Code(s): R11.0 - NAUSEA (9) Poor appetite Code(s): R63.0 - ANOREXIA (10) Diabetes 1.5, managed as type 2 Code(s): E10.9 - TYPE 1 DIABETES MELLITUS WITHOUT COMPLICATIONS
--- NOTE | 2018-05-15 14:32 | PN ---
Physical Exam: SUBJECTIVE: Patient seen and examined at bed side. States she feels much better , appetite has improved and feels more energetic. Is able to sit in a chair. Had 2 bowel movements today, no blood noticed. Had an episode of palpitation-HR 125 yesterday, but today denies palpitation, chest pain, sob, cough, abdominal pain, nausea or vomiting. Bladder habit normal. No acute overnight events. Afebrile > 24 hrs. OBJECTIVE: Vital Signs Period Temp Pulse Resp BP Sys/De Jesus Pulse Ox Last 24 Hr 97.9 F-99.2 F 86-123 18-18 112-145/72-95 98 GENERAL: Elderly female, sitting comfortably in a chair, looks tired, Awake, alert, and fully oriented, in no acute distress. HEAD: Normal with no signs of trauma. EYES: EOM intact, pallor +, no icterus. EARS, NOSE, THROAT: Ears normal. Dry mucous membranes. NECK: Supple. BREAST EXAM 05/09/18: Normal, no nodules palpated AXILLA: No axillary lymph nodes palpated. LUNGS: B/L Breath sounds equal, clear to auscultation bilaterally. No wheezes, and no crackles. No accessory muscle use. HEART: Tachycardic, Regular rate and rhythm, normal S1 and S2 with soft systolic murmur. ABDOMEN: Soft, nontender, no organomegaly. MUSCULOSKELETAL: Normal range of motion at all joints. No bony deformities or tenderness. No CVA tenderness. UPPER EXTREMITIES: 2+ pulses, warm, well-perfused. No cyanosis. No clubbing. Cap refill <2 seconds. No peripheral edema. LOWER EXTREMITIES: Pigmentation below the knee, 2+ pulses, warm, well-perfused. No calf tenderness. No peripheral edema. NEUROLOGICAL: No facial droop, Power 5/5 in all extremities, sensation intact, Cranial nerves II-XII intact. Normal speech. Gait not observed. PSYCHIATRIC: Cooperative. Good eye contact. Appropriate mood and affect. SKIN: Warm, dry, normal turgor, no rashes or lesions noted. Laboratory Results - last 24 hr 05/15/18 05/15/18 05/15/18 05:44 06:20 06:20 WBC 4.9 RBC 4.22 Hgb 12.1 Hct 35.6 MCV 84.4 MCH 28.6 MCHC 33.9 RDW 16.3 H Plt Count 87 L MPV 8.3 Absolute Neuts (auto) 2.0 Neutrophils % 41.8 L Lymphocytes % 36.7 Monocytes % 19.1 H Eosinophils % 1.6 Basophils % 0.8 Nucleated RBC % 0 Sodium 139 Potassium 3.9 Chloride 108 H Carbon Dioxide 19 L Anion Gap 12 BUN 8 Creatinine 0.5 L Creat Clearance w eGFR > 60 POC Glucometer 81 Random Glucose 101 Calcium 7.8 L Magnesium 1.8 Total Bilirubin 0.7 AST 84 H ALT 79 H Alkaline Phosphatase 92 Total Protein 6.3 L Albumin 2.3 L Active Medications Generic Name Dose Route Start Last Admin Trade Name Freq PRN Reason Stop Dose Admin Acetaminophen 650 mg 05/06/18 23:39 05/11/18 17:20 Tylenol - PO 650 mg Q6H PRN Administration FEVER Amlodipine Besylate 5 mg 05/07/18 10:00 05/15/18 11:05 Norvasc - PO 5 mg DAILY [facility] Administration Atorvastatin Calcium 10 mg 05/07/18 22:00 05/14/18 21:56 Lipitor - PO 10 mg HS [facility] Administration Atovaquone 750 mg 05/11/18 08:00 05/15/18 08:23 Mepron - PO 750 mg BIDWM [facility] Administration Bisacodyl 20 mg 05/18/18 18:00 Dulcolax - PO 05/18/18 18:01 ONCE ONE Calcium Carbonate 500 mg 05/08/18 10:00 05/15/18 11:05 Os-Jah 500mg - PO 500 mg DAILY [facility] Administration Guaifenesin 10 ml 05/11/18 09:42 05/13/18 16:18 Diabetic Tussin Dm - PO 10 ml Q6H PRN Administration COUGH Sodium Chloride 1,000 mls @ 75 mls/hr 05/06/18 23:45 05/15/18 06:03 Normal Saline - IV 75 mls/hr ASDIR [facility] Administration Doxycycline Hyclate 100 mg/ 100 mls @ 100 mls/hr 05/09/18 22:00 05/15/18 11: 04 Dextrose IVPB 100 mls/hr BID [facility] Administration Azithromycin 500 mg/ Dextrose 250 mls @ 250 mls/hr 05/10/18 12:45 05/14/18 09 :00 IVPB 250 mls/hr DAILY [facility] Administration Megestrol Acetate 400 mg 05/12/18 20:00 05/15/18 11:04 Megace Oral Suspension - PO 400 mg DAILY [facility] Administration Metformin HCl 500 mg 05/07/18 07:00 05/15/18 06:45 Glucophage - PO 500 mg 0700 [facility] Administration Metoprolol Succinate 50 mg 05/14/18 22:00 05/14/18 21:55 Toprol Xl - PO 50 mg HS [facility] Administration Pantoprazole Sodium 20 mg 05/07/18 15:30 05/15/18 11:05 Protonix - PO 20 mg DAILY [facility] Administration Valsartan 160 mg 05/07/18 10:00 05/15/18 11:05 Diovan - PO 160 mg DAILY [facility] Administration Patient is a 72 year old female, new patient to [facility], with past medical history of Hyperlipidemia, DM, UTI, Labile HTN; Diastolic dysfunction; History of chest pain syndrome, Diverticulosis was sent by her PCP (Dr. Werner) for evaluation of weakness and low appetite. ASSESSMENT Newly diagnosed colon mass ? Malignant Newly diagnosed Babebiosis UTI Decreased BM- Likely secondary to gastroparesis: currently on Reglan and protonix with symptomatic relief Electrolye imbalance: Hyponatremia, hypokalemia, Hypomagnesemia likely secondary to poor oral intake vs HCTZ use. Thrombocytopenia Normocytic anemia Transaminitis Labile Hypertension Hyperlipidemia DM- A1c done 2 weeks ago was 6.5 as per the patient. Diastolic dysfunction H/o Chest pain syndrome- No active chest pain PLAN: # Normocytic anemia - Improved after blood transfusion. H/H 12.1/35.6 Received PRBC transfusions this admission. Repeat CBC and keep Hct >25 Ferritin high due to reactive, related to liver disease, babesia. normal iron, TIBC is low compatible with chronic illness GI recommendations noted, Colonoscopy/EGD on 05/19/2018 # Newly diagnosed colon mass ? Malignant Found in CT abdomen/Pelvis 05/09/2018: Mass in descending colon. Undergoing Colonoscopy with biopsy on 05/19/2018. Treatment as per the results. SCD's Megesterol ordered # Hemolysis-Improving Although corrected reticulocyte count is 1.6, it is compatible with hemolysis given Low haptoglobulin, High LDH -likely secondary to babesia. Kwadwo test negative # Thrombocytopenia-Unknown if it is acute or chronic-Improving Platelet count 77 on admission---> 66--->59-->65-->77 --> 87 today Likely secondary to infection (underlying babesia) vs antibiotic use vs liver disease. # Reverse A/G ratio-r/o dysproteinemia or possible polyclonal gammopathy secondary to underlying liver disease. # Monocytosis Could be due to liver disease or infectious-viral or malignant. Will observe and consider flow cytometry. Will need to review peripheral smear. Rest as per primary. Plan of care discussed with the patient and her daughter. They verbalized understanding. Case discussed with Dr. Griffith. Dispo: We will continue to follow the patient. Thank you for this consultative opportunity. Visit type - Emergency Visit Emergency Visit: Yes ED Registration Date: 05/06/18 Care time: The patient presented to the Emergency Department on the above date and was hospitalized for further evaluation of their emergent condition. - New Patient This patient is new to me today: No - Critical Care Critical Care patient: No
--- NOTE | 2018-05-15 15:16 | PN ---
Progress Note (short form) - Note Progress Note: feels better no more fever Vital Signs Period Temp Pulse Resp BP Sys/De Jesus Pulse Ox Last 24 Hr 97.9 F-99.2 F 86-123 18-18 112-145/72-95 98 cor-rrr lungs clear abd soft,nt ext no edema CBC, BMP 05/15/18 06:20 05/15/18 06:20 Microbiology 05/14/18 07:15 Blood - Peripheral Venous Blood Parasites Smear - Final 05/09/18 21:15 Colon Fluid Gram Stain - Final 05/09/18 21:15 Colon Fluid Salmonella/Shigella Culture - Final NO GROWTH OF SALMONELLA OR SHIGELLA SPECIES OBTAINED 05/09/18 21:15 Colon Fluid Campylobacter Culture - Final NO GROWTH OF CAMPYLOBACTER SPECIES OBTAINED 05/09/18 21:15 Colon Fluid Yersinia Culture - Final NO GROWTH OF YERSINIA SPECIES OBTAINED 05/09/18 21:15 Colon Fluid Vibrio Culture - Final 05/09/18 21:15 Colon Fluid Escherichia coli 0157 Culture - Final NO GROWTH OF E COLI 0157 OBTAINED 05/12/18 06:00 Blood - Peripheral Venous Blood Parasites Smear - Final Babesia Species 05/06/18 21:25 Blood - Peripheral Venous Blood Culture - Final NO GROWTH AFTER 5 DAYS INCUBATION 05/06/18 21:25 Blood - Peripheral Venous Blood Culture - Final NO GROWTH AFTER 5 DAYS INCUBATION 05/09/18 21:15 Stool Clostridium difficile Antigen (JUDAH) - Final 05/09/18 21:15 Stool Clostridium difficile Toxin Assay - Final 05/09/18 18:00 Blood - Peripheral Venous Blood Parasites Smear - Final Babesia Species 05/06/18 17:00 Urine - Urine Clean Catch Urine Culture - Final NO GROWTH OBTAINED 05/06/18 15:46 Throat Throat Culture - Final NO BETA HEMOLYTIC STREPTOCOCCI ISOLATED 05/06/18 15:46 Throat Group A Strep Rapid Antigen - Final 05/06/18 20:46 Nasopharyngeal Swab Influenza Types A,B Antigen - Final 05/06/18 20:46 Nasopharyngeal Swab - Final lyme negative, ehrlichia pcr negative a/p babesiosis resolving, continue zithromax and mepron day #5 of 7 continue doxycycline day #5 for possible coinfection- if anaplasma pcr is negative can d/c doxycycline repeat smear negative probable colon mass will need colonoscopy d/w patient and daughter at bedside Problem List - Problems (1) Fever of unknown origin (FUO) Code(s): R50.9 - FEVER, UNSPECIFIED (2) Weight loss Code(s): R63.4 - ABNORMAL WEIGHT LOSS (3) Thrombocytopenia Code(s): D69.6 - THROMBOCYTOPENIA, UNSPECIFIED
[2018-05-15] MEDS: AZITHROMYCIN IVPB 500 MG in DEXTROSE 5%-WATER - 250 ML IVPB SCH (15:47)
[2018-05-15 15:54] VITALS: BMI 25.2
[2018-05-15 16:23] LABS: ALBUMIN % 33.5 % (.); ALPHA-1 FOR UPE 7.7 % (.); TOTAL PROTEIN, URINE 27.3 mg/dL (Not Estab.)
[2018-05-15] MEDS: ATORVASTATIN CA 10 MG TABLET (FP) PO SCH (22:03)
--- NOTE | 2018-05-15 23:02 | PN ---
Teaching Attending Note Name of Resident: Razia Segura ATTENDING PHYSICIAN STATEMENT I saw and evaluated the patient. I reviewed the resident's note and discussed the case with the resident. I agree with the resident's findings and plan as documented. 72 y/o patient with Babesiosis hemolysis Thrombocytopenia s/p transfusion colonic mass fever curve improved hemolysis/thrombocytopenia improved for colonoscopy
[2018-05-16] MEDS: SODIUM CHLORIDE 1,000 ML IV SCH ×2 (06:55→12:31)
[2018-05-16] MEDS: metFORMIN HCL 500 MG TABLET (FP) PO SCH (06:56)
[2018-05-16 07:50] LABS: EOS % 1.3 % (0-4.5); HEMATOCRIT 36.3 % (32.4-45.2); HEMOGLOBIN 12.3 GM/dL (10.7-15.3); LYMPH % 37.7 % (8-40); MCH 28.6 pg (25.7-33.7); MCHC 33.7 g/dl (32.0-36.0); MEAN CELL VOLUME 84.8 fl (80-96); MEAN PLT VOLUME 8.5 fl (7.5-11.1); MONO % 16.1 % (3.8-10.2); NEUT % 43.9 % (42.8-82.8); PLATELET COUNT 107 K/MM3 (134-434); RBC 4.29 M/mm3 (3.60-5.2); RDW 16.8 % (11.6-15.6); WHITE BLOOD COUNT 5.9 K/mm3 (4.0-10.0)
[2018-05-16 08:14] LABS: CHLORIDE 107 mmol/L (98-107); POTASSIUM 4.3 mmol/L (3.5-5.1); SODIUM 136 mmol/L (136-145)
[2018-05-16] MEDS: ATOVAQUONE 750 MG/5 ML (UNIT-DOSE PACKAGING) PO SCH ×2 (08:31→17:33)
[2018-05-16 08:37] LABS: ALBUMIN 2.5 g/dl (3.4-5.0); ALK PHOS 96 U/L (45-117); ANION GAP 8 MMOL/L (8-16); BILIRUBIN,TOTAL 0.9 mg/dL (0.2-1); BLOOD UREA NITROGEN 10 mg/dL (7-18); CALCIUM 8.2 mg/dL (8.5-10.1); CO2 21 mmol/L (21-32); CREATININE 0.5 mg/dL (0.55-1.3); GLUCOSE,RANDOM 86 mg/dL (74-106); SGOT/AST 71 U/L (15-37); SGPT/ALT 74 U/L (13-61); TOT PROT 6.7 g/dl (6.4-8.2)
[2018-05-16] MEDS ORDERED: PT OWN MED DRAWER 7, Y5N ONE (09:05)
[2018-05-16] MEDS: amLODIPine BESYLATE 5 MG TABLET (FP) PO SCH (09:12)
[2018-05-16] MEDS: MEGESTROL ACETATE 400 MG/10 ML UNIT DOSE CUP PO SCH (09:12)
[2018-05-16] MEDS: VALSARTAN 160 MG TABLET (UD) PO SCH (09:12)
[2018-05-16] MEDS: PANTOPRAZOLE 20 MG TABLET (FP) PO SCH (09:12)
[2018-05-16] MEDS: CALCIUM (OYSTER SHELL) 500 MG TABLET (FP) PO SCH (09:12)
[2018-05-16] MEDS: DOXYCYCLINE INJECTION 100 MG in DEXTROSE 5%-WATER - 100 ML IVPB SCH (09:13)
--- NOTE | 2018-05-16 09:48 | PN ---
Progress Note, Physician Chief Complaint: Pt sitting tiredness,,lack of appetitie improved,sinus tachycardia improved anemia improved,s/p transfusion, Ct abdomen and pelvis shows colonic mass Peripheral smear no parasytemia Gi,ID,Oncology,endocrine F/u appreciated electolyte imbalance improved Elevated LFT,low Platelet blood cul and urine cul negative stool studies negative awaiting for colonoscopy,will schedule once pt is stable - Current Medication List Current Medications: Active Medications Acetaminophen (Tylenol -) 650 mg PO Q6H PRN PRN Reason: FEVER Last Admin: 05/11/18 17:20 Dose: 650 mg Amlodipine Besylate (Norvasc -) 5 mg PO DAILY [facility] Last Admin: 05/16/18 09:12 Dose: 5 mg Atorvastatin Calcium (Lipitor -) 10 mg PO HS [facility] Last Admin: 05/15/18 22:03 Dose: 10 mg Atovaquone (Mepron -) 750 mg PO BIDWM [facility] Last Admin: 05/16/18 08:31 Dose: 750 mg Bisacodyl (Dulcolax -) 20 mg PO ONCE ONE Stop: 05/18/18 18:01 Calcium Carbonate (Os-Jah 500mg -) 500 mg PO DAILY [facility] Last Admin: 05/16/18 09:12 Dose: 500 mg Guaifenesin (Diabetic Tussin Dm -) 10 ml PO Q6H PRN PRN Reason: COUGH Last Admin: 05/13/18 16:18 Dose: 10 ml Sodium Chloride (Normal Saline -) 1,000 mls @ 75 mls/hr IV ASDIR [facility] Last Admin: 05/16/18 06:55 Dose: Not Given Doxycycline Hyclate 100 mg/ (Dextrose) 100 mls @ 100 mls/hr IVPB BID [facility] Last Admin: 05/16/18 09:13 Dose: 100 mls/hr Azithromycin 500 mg/ Dextrose 250 mls @ 250 mls/hr IVPB DAILY [facility] Last Admin: 05/15/18 15:47 Dose: 250 mls/hr Megestrol Acetate (Megace Oral Suspension -) 400 mg PO DAILY [facility] Last Admin: 05/16/18 09:12 Dose: 400 mg Metformin HCl (Glucophage -) 500 mg PO 0700 [facility] Last Admin: 05/16/18 06:56 Dose: 500 mg Metoprolol Succinate (Toprol Xl -) 50 mg PO HS [facility] Last Admin: 05/15/18 22:03 Dose: 50 mg Pantoprazole Sodium (Protonix -) 20 mg PO DAILY [facility] Last Admin: 05/16/18 09:12 Dose: 20 mg Valsartan (Diovan -) 160 mg PO DAILY [facility] Last Admin: 05/16/18 09:12 Dose: 160 mg - Objective Vital Signs: Vital Signs Temperature 98.7 F 05/16/18 06:00 Pulse Rate 96 H 05/16/18 06:00 Respiratory Rate 20 05/16/18 06:00 Blood Pressure 132/79 05/16/18 06:00 O2 Sat by Pulse Oximetry (%) 98 05/15/18 21:00 Constitutional: Yes: No Distress Eyes: Yes: Conjunctiva Clear HENT: Yes: Atraumatic Neck: Yes: Supple, Trachea Midline Cardiovascular: Yes: Regular Rate and Rhythm Respiratory: Yes: Regular, CTA Bilaterally Gastrointestinal: Yes: Normal Bowel Sounds, Soft Musculoskeletal: Yes: WNL Extremities: Yes: WNL Edema: No Peripheral Pulses WNL: Yes ...Motor Strength: WNL Psychiatric: Yes: WNL, Alert Labs: CBC, BMP 05/16/18 06:20 05/16/18 06:20 INR, PTT INR 1.36 (0.83-1.09) H 05/08/18 08:00 Assessment/Plan colonic mass Babesiosis,no parasytemia in the peripheral blood anemia,hemolytic,s/p transfusion ,hyponatremia improved POOR appetite, and po intake improverd Elevated LFT,low platelet Fatigue, generalised weakness PLAN Antibiotics as per ID GI F/u Continue Metformin,metoprolol and amlodipine will monitor labs endocrine ,hematology f/u foir colonoscopy once pt is stable
[2018-05-16] MEDS: AZITHROMYCIN IVPB 500 MG in DEXTROSE 5%-WATER - 250 ML IVPB SCH (10:57)
--- NOTE | 2018-05-16 14:32 | PN ---
Progress Note, Physician Chief Complaint: Events noted Denies chest pain or SOB History of Present Illness: Patient was seen and examined. Awake and alert. Chart was reviewed Denies chest pain, SOB or palpitations. Await further GI work up - Current Medication List Current Medications: Active Medications Acetaminophen (Tylenol -) 650 mg PO Q6H PRN PRN Reason: FEVER Last Admin: 05/11/18 17:20 Dose: 650 mg Amlodipine Besylate (Norvasc -) 5 mg PO DAILY [facility] Last Admin: 05/16/18 09:12 Dose: 5 mg Atorvastatin Calcium (Lipitor -) 10 mg PO HS [facility] Last Admin: 05/15/18 22:03 Dose: 10 mg Atovaquone (Mepron -) 750 mg PO BIDWM [facility] Last Admin: 05/16/18 08:31 Dose: 750 mg Bisacodyl (Dulcolax -) 20 mg PO ONCE ONE Stop: 05/18/18 18:01 Calcium Carbonate (Os-Jah 500mg -) 500 mg PO DAILY [facility] Last Admin: 05/16/18 09:12 Dose: 500 mg Guaifenesin (Diabetic Tussin Dm -) 10 ml PO Q6H PRN PRN Reason: COUGH Last Admin: 05/13/18 16:18 Dose: 10 ml Sodium Chloride (Normal Saline -) 1,000 mls @ 75 mls/hr IV ASDIR [facility] Last Admin: 05/16/18 12:31 Dose: 75 mls/hr Doxycycline Hyclate 100 mg/ (Dextrose) 100 mls @ 100 mls/hr IVPB BID [facility] Last Admin: 05/16/18 09:13 Dose: 100 mls/hr Azithromycin 500 mg/ Dextrose 250 mls @ 250 mls/hr IVPB DAILY [facility] Last Admin: 05/16/18 10:57 Dose: 250 mls/hr Megestrol Acetate (Megace Oral Suspension -) 400 mg PO DAILY [facility] Last Admin: 05/16/18 09:12 Dose: 400 mg Metformin HCl (Glucophage -) 500 mg PO 0700 [facility] Last Admin: 05/16/18 06:56 Dose: 500 mg Metoprolol Succinate (Toprol Xl -) 50 mg PO HS [facility] Last Admin: 05/15/18 22:03 Dose: 50 mg Pantoprazole Sodium (Protonix -) 20 mg PO DAILY [facility] Last Admin: 05/16/18 09:12 Dose: 20 mg Valsartan (Diovan -) 160 mg PO DAILY [facility] Last Admin: 05/16/18 09:12 Dose: 160 mg - Objective Vital Signs: Vital Signs Temperature 98.3 F 05/16/18 09:00 Pulse Rate 97 H 05/16/18 09:00 Respiratory Rate 18 05/16/18 09:00 Blood Pressure 130/82 05/16/18 09:00 O2 Sat by Pulse Oximetry (%) 98 05/15/18 21:00 Neck: Yes: Supple Cardiovascular: Yes: Regular Rate and Rhythm, S1, S2 Respiratory: Yes: CTA Bilaterally Gastrointestinal: Yes: Normal Bowel Sounds, Soft. No: Tenderness Edema: No Labs: CBC, BMP 05/16/18 06:20 05/16/18 06:20 Problem List - Problems (1) Hypercholesterolemia Code(s): E78.00 - PURE HYPERCHOLESTEROLEMIA, UNSPECIFIED (2) Abnormal LFTs (liver function tests) Code(s): R94.5 - ABNORMAL RESULTS OF LIVER FUNCTION STUDIES (3) Diabetic gastroparesis Code(s): E11.43 - TYPE 2 DIABETES W DIABETIC AUTONOMIC (POLY)NEUROPATHY; K31.84 - GASTROPARESIS (4) Diastolic dysfunction Code(s): I51.9 - HEART DISEASE, UNSPECIFIED (5) Hypertension Code(s): I10 - ESSENTIAL (PRIMARY) HYPERTENSION Qualifiers: Hypertension type: essential hypertension Qualified Code(s): I10 - Essential (primary) hypertension (6) Weakness Code(s): R53.1 - WEAKNESS Assessment/Plan 1. Dyspepsia and nausea with gastroparesis possibly due to DM 2. UTI 3. Labile HTN 4. Diastolic dysfunction 5. Type 2 DM 6. Hyperlipidemia 7. History of chest pain syndrome PLAN: 1. Complete empiric antibiotic course 2. Continue Toprol XL, Norvasc, Lipitor, ASA and Valsartan 3. Await GI work up Further plans are to follow Rigoberto Davis MD
--- NOTE | 2018-05-16 15:27 | PN ---
Physical Exam: SUBJECTIVE: Patient seen and examined at bed side. Sitting in a chair. Gets palpitation occasionally and sob while walking to the bathroom. Denies chest pain, cough, abdominal pain, nausea or vomiting. Bladder habit normal. No acute overnight events. Afebrile > 24 hrs. OBJECTIVE: Vital Signs Period Temp Pulse Resp BP Sys/De Jesus Pulse Ox Last 24 Hr 97.6 F-98.7 F 96-123 18-20 119-140/72-87 98 GENERAL: Elderly female, sitting comfortably in a chair, looks tired, Awake, alert, and fully oriented, in no acute distress. HEAD: Normal with no signs of trauma. EYES: EOM intact, pallor +, no icterus. EARS, NOSE, THROAT: Ears normal. Dry mucous membranes. NECK: Supple. BREAST EXAM 05/09/18: Normal, no nodules palpated AXILLA: No axillary lymph nodes palpated. LUNGS: B/L Breath sounds equal, clear to auscultation bilaterally. No wheezes, and no crackles. No accessory muscle use. HEART: Tachycardic, Regular rate and rhythm, normal S1 and S2 with soft systolic murmur. ABDOMEN: Soft, nontender, no organomegaly. MUSCULOSKELETAL: Normal range of motion at all joints. No bony deformities or tenderness. No CVA tenderness. UPPER EXTREMITIES: 2+ pulses, warm, well-perfused. No cyanosis. No clubbing. Cap refill <2 seconds. No peripheral edema. LOWER EXTREMITIES: Pigmentation below the knee, 2+ pulses, warm, well-perfused. No calf tenderness. No peripheral edema. NEUROLOGICAL: No facial droop, Power 5/5 in all extremities, sensation intact, Cranial nerves II-XII intact. Normal speech. Gait not observed. PSYCHIATRIC: Cooperative. Good eye contact. Appropriate mood and affect. SKIN: Warm, dry, normal turgor, no rashes or lesions noted. Laboratory Results - last 24 hr 05/11/18 05/12/18 05/16/18 06:30 08:47 06:20 WBC 5.9 RBC 4.29 Hgb 12.3 Hct 36.3 MCV 84.8 MCH 28.6 MCHC 33.7 RDW 16.8 H Plt Count 107 L D MPV 8.5 Absolute Neuts (auto) 2.6 Neutrophils % 43.9 Lymphocytes % 37.7 Monocytes % 16.1 H Eosinophils % 1.3 Basophils % 1.0 Nucleated RBC % 0 Sodium Potassium Chloride Carbon Dioxide Anion Gap BUN Creatinine Creat Clearance w eGFR POC Glucometer Random Glucose Calcium Total Bilirubin AST ALT Alkaline Phosphatase Total Protein Albumin Albumin % 33.5 Gamma Globulins (%) 18.0 Ur Total Protein 24 Hr 601 H Urine Total Protein 27.3 U PEP M-Paolo 57.7 H U Random MORALES M-Paolo % 9.6 H Ref Test Comments Blood Type AB POSITIVE Crossmatch See Detail 05/16/18 05/16/18 06:20 06:57 WBC RBC Hgb Hct MCV MCH MCHC RDW Plt Count MPV Absolute Neuts (auto) Neutrophils % Lymphocytes % Monocytes % Eosinophils % Basophils % Nucleated RBC % Sodium 136 Potassium 4.3 Chloride 107 Carbon Dioxide 21 Anion Gap 8 BUN 10 Creatinine 0.5 L Creat Clearance w eGFR > 60 POC Glucometer 83 Random Glucose 86 Calcium 8.2 L Total Bilirubin 0.9 AST 71 H ALT 74 H Alkaline Phosphatase 96 Total Protein 6.7 Albumin 2.5 L Albumin % Gamma Globulins (%) Ur Total Protein 24 Hr Urine Total Protein U PEP M-Paolo U Random MORALES M-Paolo % Ref Test Comments Blood Type Crossmatch Active Medications Generic Name Dose Route Start Last Admin Trade Name Freq PRN Reason Stop Dose Admin Acetaminophen 650 mg 05/06/18 23:39 05/11/18 17:20 Tylenol - PO 650 mg Q6H PRN Administration FEVER Amlodipine Besylate 5 mg 05/07/18 10:00 05/16/18 09:12 Norvasc - PO 5 mg DAILY [facility] Administration Atorvastatin Calcium 10 mg 05/07/18 22:00 05/15/18 22:03 Lipitor - PO 10 mg HS [facility] Administration Atovaquone 750 mg 05/11/18 08:00 05/16/18 08:31 Mepron - PO 750 mg BIDWM [facility] Administration Bisacodyl 20 mg 05/18/18 18:00 Dulcolax - PO 05/18/18 18:01 ONCE ONE Calcium Carbonate 500 mg 05/08/18 10:00 05/16/18 09:12 Os-Jah 500mg - PO 500 mg DAILY [facility] Administration Guaifenesin 10 ml 05/11/18 09:42 05/13/18 16:18 Diabetic Tussin Dm - PO 10 ml Q6H PRN Administration COUGH Sodium Chloride 1,000 mls @ 75 mls/hr 05/06/18 23:45 05/16/18 12:31 Normal Saline - IV 75 mls/hr ASDIR [facility] Administration Doxycycline Hyclate 100 mg/ 100 mls @ 100 mls/hr 05/09/18 22:00 05/16/18 09: 13 Dextrose IVPB 100 mls/hr BID [facility] Administration Azithromycin 500 mg/ Dextrose 250 mls @ 250 mls/hr 05/10/18 12:45 05/16/18 10 :57 IVPB 250 mls/hr DAILY [facility] Administration Megestrol Acetate 400 mg 05/12/18 20:00 05/16/18 09:12 Megace Oral Suspension - PO 400 mg DAILY [facility] Administration Metformin HCl 500 mg 05/07/18 07:00 05/16/18 06:56 Glucophage - PO 500 mg 0700 [facility] Administration Metoprolol Succinate 50 mg 05/14/18 22:00 05/15/18 22:03 Toprol Xl - PO 50 mg HS [facility] Administration Pantoprazole Sodium 20 mg 05/07/18 15:30 05/16/18 09:12 Protonix - PO 20 mg DAILY [facility] Administration Valsartan 160 mg 05/07/18 10:00 05/16/18 09:12 Diovan - PO 160 mg DAILY [facility] Administration Patient is a 72 year old female, new patient to [facility], with past medical history of Hyperlipidemia, DM, UTI, Labile HTN; Diastolic dysfunction; History of chest pain syndrome, Diverticulosis was sent by her PCP (Dr. Werner) for evaluation of weakness and low appetite. ASSESSMENT Newly diagnosed colon mass ? Malignant Newly diagnosed Babebiosis UTI Decreased BM- Likely secondary to gastroparesis: currently on Reglan and protonix with symptomatic relief Electrolye imbalance: Hyponatremia, hypokalemia, Hypomagnesemia likely secondary to poor oral intake vs HCTZ use. Thrombocytopenia Normocytic anemia Transaminitis Labile Hypertension Hyperlipidemia DM- A1c done 2 weeks ago was 6.5 as per the patient. Diastolic dysfunction H/o Chest pain syndrome- No active chest pain PLAN: # Newly diagnosed colon mass ? Malignant Found in CT abdomen/Pelvis 05/09/2018: Mass in descending colon. Undergoing Colonoscopy with biopsy on 05/19/2018. Treatment as per the results. SCD's # Normocytic anemia - Improved after blood transfusion. H/H 12.3/36.3 Received PRBC transfusions this admission. Repeat CBC and keep Hct >25 Ferritin high due to reactive, related to liver disease, babesia. normal iron, TIBC is low compatible with chronic illness GI recommendations noted, Colonoscopy/EGD on 05/19/2018 # Hemolysis-Improving Although corrected reticulocyte count is 1.6, it is compatible with hemolysis given Low haptoglobulin, High LDH -likely secondary to babesia. Kwadwo test negative # Thrombocytopenia-Unknown if it is acute or chronic-Improving Platelet count 77 on admission---> 66--->59-->65-->77 --> 87--> 107 today Likely secondary to infection (underlying babesia) vs antibiotic use vs liver disease. # Reverse A/G ratio-r/o dysproteinemia or possible polyclonal gammopathy secondary to underlying liver disease. # Monocytosis Could be due to liver disease or infectious-viral or malignant. Will observe and consider flow cytometry. Will need to review peripheral smear. Rest as per primary. Plan of care discussed with the patient and her daughter. They verbalized understanding. Case discussed with Dr. Castellanos. Dispo: We will continue to follow the patient. Thank you for this consultative opportunity. Visit type - Emergency Visit Emergency Visit: Yes ED Registration Date: 05/06/18 Care time: The patient presented to the Emergency Department on the above date and was hospitalized for further evaluation of their emergent condition. - New Patient This patient is new to me today: No - Critical Care Critical Care patient: No - Discharge Referral Referred to [facility] Med P.C.: No
--- NOTE | 2018-05-16 15:41 | PN ---
Teaching Attending Note Name of Resident: Razia Segura ATTENDING PHYSICIAN STATEMENT I saw and evaluated the patient. I reviewed the resident's note and discussed the case with the resident. I agree with the resident's findings and plan as documented. SUBJECTIVE: Patient seen and examined Clinically improved Remains anorechtic , weak, Tires easily on ambulation on power. HEENT: DEEPAK, EOM Intact Oropharynx: No thrush, No mucositis Neck: Supple Cor: No murmurs, No gallops, sinus tachycardia Lungs: Clear to P&A Abd: Soft, Normal bowel sounds, No organomegaly Ext:No significant edema Skin: No rashes, Integument intact CBC, BMP 05/16/18 06:20 05/16/18 06:20 Abnormal Lab Results 05/11/18 05/12/18 05/16/18 06:30 08:47 06:20 RDW 16.8 H Plt Count 107 L D Monocytes % 16.1 H Creatinine Calcium AST ALT Albumin Ur Total Protein 24 Hr 601 H U PEP M-Paolo 57.7 H U Random MORALES M-Paolo % 9.6 H Crossmatch See Detail 05/16/18 06:20 RDW Plt Count Monocytes % Creatinine 0.5 L Calcium 8.2 L AST 71 H ALT 74 H Albumin 2.5 L Ur Total Protein 24 Hr U PEP M-Paolo U Random MORALES M-Paolo % Crossmatch Current Medications Generic Name Dose Route Start Last Admin Trade Name Freq PRN Reason Stop Dose Admin Acetaminophen 650 mg 05/06/18 23:39 05/11/18 17:20 Tylenol - PO 650 mg Q6H PRN Administration FEVER Amlodipine Besylate 5 mg 05/07/18 10:00 05/16/18 09:12 Norvasc - PO 5 mg DAILY [facility] Administration Atorvastatin Calcium 10 mg 05/07/18 22:00 05/15/18 22:03 Lipitor - PO 10 mg HS [facility] Administration Atovaquone 750 mg 05/11/18 08:00 05/16/18 08:31 Mepron - PO 750 mg BIDWM [facility] Administration Bisacodyl 20 mg 05/18/18 18:00 Dulcolax - PO 05/18/18 18:01 ONCE ONE Calcium Carbonate 500 mg 05/08/18 10:00 05/16/18 09:12 Os-Jah 500mg - PO 500 mg DAILY [facility] Administration Guaifenesin 10 ml 05/11/18 09:42 05/13/18 16:18 Diabetic Tussin Dm - PO 10 ml Q6H PRN Administration COUGH Sodium Chloride 1,000 mls @ 75 mls/hr 05/06/18 23:45 05/16/18 12:31 Normal Saline - IV 75 mls/hr ASDIR [facility] Administration Doxycycline Hyclate 100 mg/ 100 mls @ 100 mls/hr 05/09/18 22:00 05/16/18 09: 13 Dextrose IVPB 100 mls/hr BID [facility] Administration Azithromycin 500 mg/ Dextrose 250 mls @ 250 mls/hr 05/10/18 12:45 05/16/18 10 :57 IVPB 250 mls/hr DAILY [facility] Administration Megestrol Acetate 400 mg 05/12/18 20:00 05/16/18 09:12 Megace Oral Suspension - PO 400 mg DAILY [facility] Administration Metformin HCl 500 mg 05/07/18 07:00 05/16/18 06:56 Glucophage - PO 500 mg 0700 [facility] Administration Metoprolol Succinate 50 mg 05/14/18 22:00 05/15/18 22:03 Toprol Xl - PO 50 mg HS [facility] Administration Pantoprazole Sodium 20 mg 05/07/18 15:30 05/16/18 09:12 Protonix - PO 20 mg DAILY [facility] Administration Valsartan 160 mg 05/07/18 10:00 05/16/18 09:12 Diovan - PO 160 mg DAILY [facility] Administration Impression : Babesiosis Hemogram improved with Hct stable post transfusion of 2 packed cells, and recovery of platelets LFT's remain abnormal Colonic mass OBJECTIVE: Continue current thrapy Colonoscopy in future for colonic mass. ASSESSMENT AND PLAN:
--- NOTE | 2018-05-16 16:47 | PN ---
GI Progress Note Subjective: GI NOte: Appetite slightly improved. Platelets are over 100K and Hb stable. Feeling stronger and willing to proceed with 05/19 colonoscopy - Objective Vital Signs: Vital Signs Temperature 97.6 F 05/16/18 14:16 Pulse Rate 100 H 05/16/18 14:16 Respiratory Rate 20 05/16/18 14:16 Blood Pressure 123/72 05/16/18 14:16 O2 Sat by Pulse Oximetry (%) 98 05/16/18 09:00 Constitutional: Calm ...Auscultate: Yes: Normoactive Bowel Sounds ...Palpate: Yes: Soft, Other (nontender) Labs: CBC, BMP 05/16/18 06:20 05/16/18 06:20 INR, PTT INR 1.36 (0.83-1.09) H 05/08/18 08:00 Problem List - Problems (1) Abnormal abdominal CT scan Assessment/Plan: EGD and colonoscopy scheduled for 05/19. Aliamma is recovering steadily. LFTs have plateaued. Code(s): R93.5 - ABN FINDINGS ON DX IMAGING OF ABD REGIONS, INC RETROPERITON (2) Babesiosis Code(s): B60.0 - BABESIOSIS (3) Abnormal LFTs (liver function tests) Code(s): R94.5 - ABNORMAL RESULTS OF LIVER FUNCTION STUDIES (4) Abdominal pain Code(s): R10.9 - UNSPECIFIED ABDOMINAL PAIN (5) Diverticula of colon Code(s): K57.30 - DVRTCLOS OF LG INT W/O PERFORATION OR ABSCESS W/O BLEEDING (6) Hypertension Code(s): I10 - ESSENTIAL (PRIMARY) HYPERTENSION Qualifiers: Hypertension type: essential hypertension Qualified Code(s): I10 - Essential (primary) hypertension (7) Hyperlipidemia associated with type 2 diabetes mellitus Code(s): E11.69 - TYPE 2 DIABETES MELLITUS WITH OTHER SPECIFIED COMPLICATION; E78.5 - HYPERLIPIDEMIA, UNSPECIFIED (8) Nausea Code(s): R11.0 - NAUSEA (9) Poor appetite Code(s): R63.0 - ANOREXIA (10) Diabetes 1.5, managed as type 2 Code(s): E10.9 - TYPE 1 DIABETES MELLITUS WITHOUT COMPLICATIONS
[2018-05-16] MEDS ORDERED: INSULIN (LEVEMIR) 100 UNITS/ML UNITS SQ ONE (21:00)
[2018-05-16] MEDS: ATORVASTATIN CA 10 MG TABLET (FP) PO SCH (21:41)
[2018-05-17] MEDS: SODIUM CHLORIDE 1,000 ML IV SCH ×2 (02:36→14:04)
[2018-05-17] MEDS: metFORMIN HCL 500 MG TABLET (FP) PO SCH (06:49)
[2018-05-17 06:58] LABS: BASO % 0.8 % (0-2.0); EOS % 1.8 % (0-4.5); HEMATOCRIT 32.9 % (32.4-45.2); HEMOGLOBIN 11.3 GM/dL (10.7-15.3); LYMPH % 36.9 % (8-40); MCH 29.2 pg (25.7-33.7); MCHC 34.2 g/dl (32.0-36.0); MEAN CELL VOLUME 85.4 fl (80-96); MEAN PLT VOLUME 8.3 fl (7.5-11.1); MONO % 17.4 % (3.8-10.2); NEUT % 43.1 % (42.8-82.8); PLATELET COUNT 115 K/MM3 (134-434); RBC 3.85 M/mm3 (3.60-5.2); RDW 17.4 % (11.6-15.6); WHITE BLOOD COUNT 4.7 K/mm3 (4.0-10.0)
[2018-05-17 07:23] LABS: POTASSIUM 4.3 mmol/L (3.5-5.1)
[2018-05-17] MEDS ORDERED: PT OWN MED DRAWER 7, Y5N ONE ×2 (08:43→10:03)
[2018-05-17] MEDS: ATOVAQUONE 750 MG/5 ML (UNIT-DOSE PACKAGING) PO SCH ×2 (08:47→17:24)
[2018-05-17 09:21] LABS: ALBUMIN 2.2 g/dl (3.4-5.0); ALK PHOS 86 U/L (45-117); ANION GAP 8 MMOL/L (8-16); BILIRUBIN,TOTAL 0.6 mg/dL (0.2-1); BLOOD UREA NITROGEN 10 mg/dL (7-18); CALCIUM 8.1 mg/dL (8.5-10.1); CHLORIDE 108 mmol/L (98-107); CO2 21 mmol/L (21-32); CREATININE 0.5 mg/dL (0.55-1.3); GLUCOSE,RANDOM 99 mg/dL (74-106); SGOT/AST 50 U/L (15-37); SGPT/ALT 59 U/L (13-61); SODIUM 137 mmol/L (136-145)
--- NOTE | 2018-05-17 09:58 | PN ---
Progress Note, Physician Chief Complaint: Pt sitting tiredness,,lack of appetitie improved,sinus tachycardia improved anemia improved,s/p transfusion, Ct abdomen and pelvis shows colonic mass Peripheral smear no parasytemia Gi,ID,Oncology,endocrine F/u appreciated electolyte imbalance improved Elevated LFT,low Platelet blood cul and urine cul negative stool studies negative awaiting for colonoscopy,will schedule once pt is stable - Current Medication List Current Medications: Active Medications Acetaminophen (Tylenol -) 650 mg PO Q6H PRN PRN Reason: FEVER Last Admin: 05/11/18 17:20 Dose: 650 mg Amlodipine Besylate (Norvasc -) 5 mg PO DAILY [facility] Last Admin: 05/16/18 09:12 Dose: 5 mg Atorvastatin Calcium (Lipitor -) 10 mg PO HS [facility] Last Admin: 05/16/18 21:41 Dose: 10 mg Atovaquone (Mepron -) 750 mg PO BIDWM [facility] Last Admin: 05/17/18 08:47 Dose: 750 mg Bisacodyl (Dulcolax -) 20 mg PO ONCE ONE Stop: 05/18/18 18:01 Calcium Carbonate (Os-Jah 500mg -) 500 mg PO DAILY [facility] Last Admin: 05/16/18 09:12 Dose: 500 mg Guaifenesin (Diabetic Tussin Dm -) 10 ml PO Q6H PRN PRN Reason: COUGH Last Admin: 05/13/18 16:18 Dose: 10 ml Sodium Chloride (Normal Saline -) 1,000 mls @ 75 mls/hr IV ASDIR [facility] Last Admin: 05/17/18 02:36 Dose: 75 mls/hr Azithromycin 500 mg/ Dextrose 250 mls @ 250 mls/hr IVPB DAILY [facility] Last Admin: 05/16/18 10:57 Dose: 250 mls/hr Megestrol Acetate (Megace Oral Suspension -) 400 mg PO DAILY [facility] Last Admin: 05/16/18 09:12 Dose: 400 mg Metformin HCl (Glucophage -) 500 mg PO 0700 [facility] Last Admin: 05/17/18 06:49 Dose: 500 mg Metoprolol Succinate (Toprol Xl -) 50 mg PO HS [facility] Last Admin: 05/16/18 21:41 Dose: 50 mg Pantoprazole Sodium (Protonix -) 20 mg PO DAILY [facility] Last Admin: 05/16/18 09:12 Dose: 20 mg Valsartan (Diovan -) 160 mg PO DAILY [facility] Last Admin: 05/16/18 09:12 Dose: 160 mg - Objective Vital Signs: Vital Signs Temperature 98.2 F 05/17/18 06:00 Pulse Rate 84 05/17/18 06:00 Respiratory Rate 20 05/17/18 09:00 Blood Pressure 129/80 05/17/18 06:00 O2 Sat by Pulse Oximetry (%) 98 05/17/18 09:00 Constitutional: Yes: No Distress Eyes: Yes: Conjunctiva Clear HENT: Yes: Atraumatic, Normocephalic Neck: Yes: Supple, Trachea Midline Cardiovascular: Yes: Regular Rate and Rhythm Respiratory: Yes: Regular, CTA Bilaterally Gastrointestinal: Yes: WNL, Normal Bowel Sounds Breast(s): Yes: WNL Musculoskeletal: Yes: WNL Extremities: Yes: WNL Edema: No Peripheral Pulses WNL: Yes Neurological: Yes: WNL, Alert ...Motor Strength: WNL Psychiatric: Yes: WNL, Alert Labs: CBC, BMP 05/17/18 06:30 05/17/18 06:30 INR, PTT INR 1.36 (0.83-1.09) H 05/08/18 08:00 Assessment/Plan colonic mass Babesiosis,no parasytemia in the peripheral blood anemia,hemolytic,s/p transfusion ,hyponatremia improved POOR appetite, and po intake improverd Elevated LFT,low platelet improved Fatigue, generalised weakness PLAN Antibiotics as per ID GI F/u Continue Metformin,metoprolol and amlodipine will monitor labs endocrine ,hematology f/u foir colonoscopy once pt is stable
[2018-05-17] MEDS: CALCIUM (OYSTER SHELL) 500 MG TABLET (FP) PO SCH (10:16)
[2018-05-17] MEDS: PANTOPRAZOLE 20 MG TABLET (FP) PO SCH (10:16)
[2018-05-17] MEDS: amLODIPine BESYLATE 5 MG TABLET (FP) PO SCH (10:16)
[2018-05-17] MEDS: VALSARTAN 160 MG TABLET (UD) PO SCH (10:16)
[2018-05-17] MEDS: MEGESTROL ACETATE 400 MG/10 ML UNIT DOSE CUP PO SCH (10:17)
--- NOTE | 2018-05-17 11:33 | PN ---
Progress Note (short form) - Note Progress Note: feels better no more fever oob in chair improved appetite Vital Signs Period Temp Pulse Resp BP Sys/De Jesus Pulse Ox Last 24 Hr 97.3 F-98.2 F 84-112 18-20 123-130/72-80 98-98 cor-rrr lungs clear abd soft,nt ext no edema CBC, BMP 05/17/18 06:30 05/17/18 06:30 lyme negative, ehrlichia pcr negative smear negative a/p babesiosis resolving, complete zithromax and mepron day #7 has finished 7 days doxycycline repeat smear negative probable colon mass will need colonoscopy d/w patient and at bedside please call back if needed Problem List - Problems (1) Fever of unknown origin (FUO) Code(s): R50.9 - FEVER, UNSPECIFIED (2) Weight loss Code(s): R63.4 - ABNORMAL WEIGHT LOSS (3) Thrombocytopenia Code(s): D69.6 - THROMBOCYTOPENIA, UNSPECIFIED
[2018-05-17] MEDS: AZITHROMYCIN IVPB 500 MG in DEXTROSE 5%-WATER - 250 ML IVPB SCH (11:43)
[2018-05-17] MEDS ORDERED: AZITHROMYCIN 250 MG TABLET PO ONE (12:00)
--- NOTE | 2018-05-17 12:19 | PN ---
GI Progress Note Subjective: GI NOte: Feeling better, Appetite improved. - Objective Vital Signs: Vital Signs Temperature 98.0 F 05/17/18 12:05 Pulse Rate 107 H 05/17/18 12:05 Respiratory Rate 18 05/17/18 12:05 Blood Pressure 131/79 05/17/18 12:05 O2 Sat by Pulse Oximetry (%) 98 05/17/18 09:00 Laboratory Tests 05/15/18 05/17/18 05/17/18 06:20 06:30 06:30 Hgb 11.3 Plt Count 115 L AST 84 H 50 H ALT 79 H 59 Alkaline Phosphatase 92 86 Constitutional: No Distress ...Auscultate: Yes: Normoactive Bowel Sounds ...Palpate: Yes: Soft, Other (nontender) Labs: CBC, BMP 05/17/18 06:30 05/17/18 06:30 INR, PTT INR 1.36 (0.83-1.09) H 05/08/18 08:00 Problem List - Problems (1) Abnormal abdominal CT scan Assessment/Plan: Will proceed with EGD and colonoscopy scheduled for 05/19. Code(s): R93.5 - ABN FINDINGS ON DX IMAGING OF ABD REGIONS, INC RETROPERITON (2) Babesiosis Code(s): B60.0 - BABESIOSIS (3) Abnormal LFTs (liver function tests) Assessment/Plan: The abnormal LFTs are consistent with reactive hepatopathy related to babesiosis and to hemolysis which are now normalizing Code(s): R94.5 - ABNORMAL RESULTS OF LIVER FUNCTION STUDIES (4) Abdominal pain Code(s): R10.9 - UNSPECIFIED ABDOMINAL PAIN (5) Diverticula of colon Code(s): K57.30 - DVRTCLOS OF LG INT W/O PERFORATION OR ABSCESS W/O BLEEDING (6) Hypertension Code(s): I10 - ESSENTIAL (PRIMARY) HYPERTENSION Qualifiers: Hypertension type: essential hypertension Qualified Code(s): I10 - Essential (primary) hypertension (7) Hyperlipidemia associated with type 2 diabetes mellitus Code(s): E11.69 - TYPE 2 DIABETES MELLITUS WITH OTHER SPECIFIED COMPLICATION; E78.5 - HYPERLIPIDEMIA, UNSPECIFIED (8) Nausea Code(s): R11.0 - NAUSEA (9) Poor appetite Code(s): R63.0 - ANOREXIA (10) Diabetes 1.5, managed as type 2 Code(s): E10.9 - TYPE 1 DIABETES MELLITUS WITHOUT COMPLICATIONS
--- NOTE | 2018-05-17 14:26 | PN ---
Physical Exam: SUBJECTIVE: Patient seen and examined at bed side. Has palpitation on/off especially while she walks. Denies chest pain, cough, abdominal pain, nausea or vomiting. Bladder habit normal. No acute overnight events. Afebrile > 24 hrs. OBJECTIVE: Vital Signs Period Temp Pulse Resp BP Sys/De Jesus Pulse Ox Last 24 Hr 97.3 F-98.2 F 84-112 18-20 124-131/72-80 98-98 GENERAL: Elderly female, sitting comfortably in a chair, looks tired, Awake, alert, and fully oriented, in no acute distress. HEAD: Normal with no signs of trauma. EYES: EOM intact, pallor +, no icterus. EARS, NOSE, THROAT: Ears normal. Dry mucous membranes. NECK: Supple. LUNGS: B/L Breath sounds equal, clear to auscultation bilaterally. No wheezes, and no crackles. No accessory muscle use. HEART: Tachycardic, Regular rate and rhythm, normal S1 and S2 with soft systolic murmur. ABDOMEN: Soft, nontender, no organomegaly. MUSCULOSKELETAL: Normal range of motion at all joints. No bony deformities or tenderness. No CVA tenderness. UPPER EXTREMITIES: 2+ pulses, warm, well-perfused. No cyanosis. No clubbing. Cap refill <2 seconds. No peripheral edema. LOWER EXTREMITIES: Pigmentation below the knee, 2+ pulses, warm, well-perfused. No calf tenderness. No peripheral edema. NEUROLOGICAL: No facial droop, Power 5/5 in all extremities, sensation intact, Cranial nerves II-XII intact. Normal speech. Gait not observed. PSYCHIATRIC: Cooperative. Good eye contact. Appropriate mood and affect. SKIN: Warm, dry, normal turgor, no rashes or lesions noted. Laboratory Results - last 24 hr 05/17/18 05/17/18 05/17/18 06:30 06:30 06:48 WBC 4.7 RBC 3.85 Hgb 11.3 Hct 32.9 MCV 85.4 MCH 29.2 MCHC 34.2 RDW 17.4 H Plt Count 115 L MPV 8.3 Absolute Neuts (auto) 2.0 Neutrophils % 43.1 Lymphocytes % 36.9 Monocytes % 17.4 H Eosinophils % 1.8 Basophils % 0.8 Nucleated RBC % 0 Sodium 137 Potassium 4.3 Chloride 108 H Carbon Dioxide 21 Anion Gap 8 BUN 10 Creatinine 0.5 L Creat Clearance w eGFR > 60 POC Glucometer 95 Random Glucose 99 Calcium 8.1 L Total Bilirubin 0.6 AST 50 H ALT 59 Alkaline Phosphatase 86 Total Protein 6.0 L Albumin 2.2 L Active Medications Generic Name Dose Route Start Last Admin Trade Name Freq PRN Reason Stop Dose Admin Acetaminophen 650 mg 05/06/18 23:39 05/11/18 17:20 Tylenol - PO 650 mg Q6H PRN Administration FEVER Amlodipine Besylate 5 mg 05/07/18 10:00 05/17/18 10:16 Norvasc - PO 5 mg DAILY KAMILAH Administration Atorvastatin Calcium 10 mg 05/07/18 22:00 05/16/18 21:41 Lipitor - PO 10 mg HS KAMILAH Administration Atovaquone 750 mg 05/11/18 08:00 05/17/18 08:47 Mepron - PO 05/18/18 06:00 750 mg BIDWM KAMILAH Administration Bisacodyl 20 mg 05/18/18 18:00 Dulcolax - PO 05/18/18 18:01 ONCE ONE Calcium Carbonate 500 mg 05/08/18 10:00 05/17/18 10:16 Os-Jah 500mg - PO 500 mg DAILY KAMILAH Administration Guaifenesin 10 ml 05/11/18 09:42 05/13/18 16:18 Diabetic Tussin Dm - PO 10 ml Q6H PRN Administration COUGH Sodium Chloride 1,000 mls @ 75 mls/hr 05/06/18 23:45 05/17/18 14:04 Normal Saline - IV 75 mls/hr ASDIR KAMILAH Administration Megestrol Acetate 400 mg 05/12/18 20:00 05/17/18 10:17 Megace Oral Suspension - PO 400 mg DAILY KAMILAH Administration Metformin HCl 500 mg 05/07/18 07:00 05/17/18 06:49 Glucophage - PO 500 mg 0700 KAMILAH Administration Metoprolol Succinate 50 mg 05/14/18 22:00 05/16/18 21:41 Toprol Xl - PO 50 mg HS KAMILAH Administration Pantoprazole Sodium 20 mg 05/07/18 15:30 05/17/18 10:16 Protonix - PO 20 mg DAILY KAMILAH Administration Valsartan 160 mg 05/07/18 10:00 05/17/18 10:16 Diovan - PO 160 mg DAILY KAMILAH Administration Patient is a 72 year old female, new patient to [facility], with past medical history of Hyperlipidemia, DM, UTI, Labile HTN; Diastolic dysfunction; History of chest pain syndrome, Diverticulosis was sent by her PCP (Dr. Werner) for evaluation of weakness and low appetite. ASSESSMENT Newly diagnosed colon mass ? Malignant Newly diagnosed Babebiosis UTI Decreased BM- Likely secondary to gastroparesis: currently on Reglan and protonix with symptomatic relief Electrolye imbalance: Hyponatremia, hypokalemia, Hypomagnesemia likely secondary to poor oral intake vs HCTZ use. Thrombocytopenia Normocytic anemia Transaminitis Labile Hypertension Hyperlipidemia DM- A1c done 2 weeks ago was 6.5 as per the patient. Diastolic dysfunction H/o Chest pain syndrome- No active chest pain PLAN: # Newly diagnosed colon mass ? Malignant Found in CT abdomen/Pelvis 05/09/2018: Mass in descending colon. Undergoing Colonoscopy with biopsy on 05/19/2018. Treatment as per the results. SCD's # Normocytic anemia - Improved after blood transfusion. H/H 11.3/23.9 Received PRBC transfusions this admission. Repeat CBC and keep Hct >25 Ferritin high due to reactive, related to liver disease, babesia. normal iron, TIBC is low compatible with chronic illness GI recommendations noted, Colonoscopy/EGD on 05/19/2018 # Hemolysis-Improving Although corrected reticulocyte count is 1.6, it is compatible with hemolysis given Low haptoglobulin, High LDH -likely secondary to babesia. Kwadwo test negative Will repeat LDH and Reticulocyte count in the morning. # Thrombocytopenia-Unknown if it is acute or chronic-Improving Platelet count 77 on admission---> 66--->59-->65-->77 --> 87--> 107-->115 today Likely secondary to infection (underlying babesia) vs antibiotic use vs liver disease. # Reverse A/G ratio-r/o dysproteinemia or possible polyclonal gammopathy secondary to underlying liver disease. # Monocytosis Could be due to liver disease or infectious-viral or malignant. Will observe and consider flow cytometry. Will need to review peripheral smear. Rest as per primary. Plan of care discussed with the patient and her daughter. They verbalized understanding. Case discussed with Dr. Griffith. Dispo: We will continue to follow the patient. Thank you for this consultative opportunity.
--- NOTE | 2018-05-17 18:19 | PN ---
Progress Note (short form) - Note Progress Note: Events noted Treated for Babesiosis Feels better Sodium 137 today Improved apetite for Colonoscopy Vital Signs Period Temp Pulse Resp BP Sys/De Jesus Pulse Ox Last 24 Hr 97.3 F-98.2 F 84-112 18-20 128-133/69-80 98-98 PE: AOx3 Neck: Supple, No JVD HEENT: EOMI Lungs: CTA CVs: S1S2 Abd: Benign Ext: No edema Neuro: No focal deficit CMP Sodium 137 mmol/L (136-145) 05/17/18 06:30 Potassium 4.3 mmol/L (3.5-5.1) 05/17/18 06:30 Chloride 108 mmol/L (98-107) H 05/17/18 06:30 Carbon Dioxide 21 mmol/L (21-32) 05/17/18 06:30 Anion Gap 8 MMOL/L (8-16) 05/17/18 06:30 BUN 10 mg/dL (7-18) 05/17/18 06:30 Creatinine 0.5 mg/dL (0.55-1.3) L 05/17/18 06:30 Creat Clearance w eGFR > 60 (>60) 05/17/18 06:30 Glucose 114 mg/dL (65-99) H 05/08/18 08:00 POC Glucometer 95 UNITS (80-120) 05/17/18 06:48 Random Glucose 99 mg/dL (74-106) 05/17/18 06:30 Calcium 8.1 mg/dL (8.5-10.1) L 05/17/18 06:30 Magnesium 1.8 mg/dL (1.8-2.4) 05/15/18 06:20 Iron 38 ug/dL (27-139) 05/08/18 08:00 TIBC 191 ug/dL (250-450) L 05/08/18 08:00 Iron Saturation 20 % (15-55) 05/08/18 08:00 Ferritin 1488.0 ng/ml (6.9-282.5) H 05/08/18 08:00 Total Bilirubin 0.6 mg/dL (0.2-1) 05/17/18 06:30 Direct Bilirubin 0.4 mg/dL (0.0-0.2) H 05/10/18 06:30 GGT 20 IU/L (0-60) 05/08/18 08:00 AST 50 U/L (15-37) H 05/17/18 06:30 ALT 59 U/L (13-61) 05/17/18 06:30 Alkaline Phosphatase 86 U/L (45-117) 05/17/18 06:30 Liver Fibrosis Score TNP 05/08/18 08:00 Liver Fibrosis Stage (.) 05/08/18 08:00 Liver Steatosis Score TNP 05/08/18 08:00 Liver Steatosis Grade TNP 05/08/18 08:00 LD Total 786 U/L (84-246) H 05/12/18 06:00 C-Reactive Protein 7.9 MG/DL (0.00-0.3) H 05/10/18 06:30 Total Protein 6.0 g/dl (6.4-8.2) L 05/17/18 06:30 Total Protein (PEP) 5.7 g/dL (6.0-8.5) L 05/10/18 06:30 Albumin 2.2 g/dl (3.4-5.0) L 05/17/18 06:30 Albumin % 33.5 % (.) 05/11/18 06:30 Albumin (PEP) 2.3 gm/dl (2.9-4.4) L 05/10/18 06:30 Globulin 3.4 g/dL (2.2-3.9) 05/10/18 06:30 Albumin/Globulin Ratio 0.7 (0.7-1.7) 05/10/18 06:30 [id number] 252 mg/dL (110-276) 05/08/18 08:00 Beta Globulins 1.0 g/dL (0.7-1.3) 05/10/18 06:30 Gamma Globulins (%) 18.0 % (.) 05/11/18 06:30 Triglycerides 174 mg/dL (0-149) H 05/08/18 08:00 Cholesterol 66 mg/dL (100-199) L 05/08/18 08:00 Apolipoprotein A-1 33 mg/dL (116-209) L 05/08/18 08:00 Total Amylase 55 U/L (25-115) 05/08/18 08:00 Lipase 289 U/L (73-393) 05/08/18 08:00 Tumor Marker AFP < 0.7 ng/ml (0.0-8.3) 05/10/18 06:30 Carcinoembryonic Ag 3.5 ng/mL (0.0-4.7) 05/10/18 06:30 CA 19-9 Antigen 11 U/mL (0-35) 05/10/18 06:30 Patient Height (cm) 60 in (.) 05/08/18 08:00 Patient Weight (kg) 129 LBS (.) 05/08/18 08:00 Current Medications Generic Name Dose Route Start Last Admin Trade Name Freq PRN Reason Stop Dose Admin Acetaminophen 650 mg 05/06/18 23:39 05/11/18 17:20 Tylenol - PO 650 mg Q6H PRN Administration FEVER Amlodipine Besylate 5 mg 05/07/18 10:00 05/17/18 10:16 Norvasc - PO 5 mg DAILY KAMILAH Administration Atorvastatin Calcium 10 mg 05/07/18 22:00 05/16/18 21:41 Lipitor - PO 10 mg HS KAMILAH Administration Atovaquone 750 mg 05/11/18 08:00 05/17/18 17:24 Mepron - PO 05/18/18 06:00 750 mg BIDWM KAMILAH Administration Bisacodyl 20 mg 05/18/18 18:00 Dulcolax - PO 05/18/18 18:01 ONCE ONE Calcium Carbonate 500 mg 05/08/18 10:00 05/17/18 10:16 Os-Jah 500mg - PO 500 mg DAILY KAMILAH Administration Guaifenesin 10 ml 05/11/18 09:42 05/13/18 16:18 Diabetic Tussin Dm - PO 10 ml Q6H PRN Administration COUGH Sodium Chloride 1,000 mls @ 75 mls/hr 05/06/18 23:45 05/17/18 14:04 Normal Saline - IV 75 mls/hr ASDIR KAMILAH Administration Megestrol Acetate 400 mg 05/12/18 20:00 05/17/18 10:17 Megace Oral Suspension - PO 400 mg DAILY KAMILAH Administration Metformin HCl 500 mg 05/07/18 07:00 05/17/18 06:49 Glucophage - PO 500 mg 0700 KAMILAH Administration Metoprolol Succinate 50 mg 05/14/18 22:00 05/16/18 21:41 Toprol Xl - PO 50 mg HS KAMILAH Administration Pantoprazole Sodium 20 mg 05/07/18 15:30 05/17/18 10:16 Protonix - PO 20 mg DAILY KAMILAH Administration Valsartan 160 mg 05/07/18 10:00 05/17/18 10:16 Diovan - PO 160 mg DAILY KAMILAH Administration AP; Babesiosis T2DM: Stable blood sugar on Metformin Hyponatremia: resolved Na 137 Corrected Ca 9.5 Elevated LFT, Thrombocytopenia Fatigue Colon Mass BP controlled off HCTZ Increase Valsartan or add another agent to control BP is necessary. Recommend not restarting HCTZ Colonoscopy
--- NOTE | 2018-05-17 19:18 | PN ---
Progress Note, Physician History of Present Illness: Afebrile, resolving hemolysis, reactive sinus tachycardia noted, EGD and colonoscopy rescheduled 05/19. - Current Medication List Current Medications: Active Medications Acetaminophen (Tylenol -) 650 mg PO Q6H PRN PRN Reason: FEVER Last Admin: 05/11/18 17:20 Dose: 650 mg Amlodipine Besylate (Norvasc -) 5 mg PO DAILY [facility] Last Admin: 05/17/18 10:16 Dose: 5 mg Atorvastatin Calcium (Lipitor -) 10 mg PO HS [facility] Last Admin: 05/16/18 21:41 Dose: 10 mg Atovaquone (Mepron -) 750 mg PO BIDWM [facility] Stop: 05/18/18 06:00 Last Admin: 05/17/18 17:24 Dose: 750 mg Bisacodyl (Dulcolax -) 20 mg PO ONCE ONE Stop: 05/18/18 18:01 Calcium Carbonate (Os-Jah 500mg -) 500 mg PO DAILY [facility] Last Admin: 05/17/18 10:16 Dose: 500 mg Guaifenesin (Diabetic Tussin Dm -) 10 ml PO Q6H PRN PRN Reason: COUGH Last Admin: 05/13/18 16:18 Dose: 10 ml Sodium Chloride (Normal Saline -) 1,000 mls @ 75 mls/hr IV ASDIR [facility] Last Admin: 05/17/18 14:04 Dose: 75 mls/hr Megestrol Acetate (Megace Oral Suspension -) 400 mg PO DAILY [facility] Last Admin: 05/17/18 10:17 Dose: 400 mg Metformin HCl (Glucophage -) 500 mg PO 0700 [facility] Last Admin: 05/17/18 06:49 Dose: 500 mg Metoprolol Succinate (Toprol Xl -) 50 mg PO HS [facility] Last Admin: 05/16/18 21:41 Dose: 50 mg Pantoprazole Sodium (Protonix -) 20 mg PO DAILY [facility] Last Admin: 05/17/18 10:16 Dose: 20 mg Valsartan (Diovan -) 160 mg PO DAILY [facility] Last Admin: 05/17/18 10:16 Dose: 160 mg - Objective Vital Signs: Vital Signs Temperature 98.1 F 05/17/18 18:00 Pulse Rate 104 H 05/17/18 18:00 Respiratory Rate 20 05/17/18 18:00 Blood Pressure 128/69 05/17/18 18:00 O2 Sat by Pulse Oximetry (%) 98 05/17/18 09:00 Constitutional: Yes: No Distress, Calm, Thin Neck: Yes: Supple Cardiovascular: Yes: Tachycardia Respiratory: Yes: Regular, CTA Bilaterally Gastrointestinal: Yes: Normal Bowel Sounds, Soft Edema: No Labs: CBC, BMP 05/17/18 06:30 05/17/18 06:30 INR, PTT INR 1.36 (0.83-1.09) H 05/08/18 08:00 Problem List - Problems (1) Diastolic dysfunction Code(s): I51.9 - HEART DISEASE, UNSPECIFIED (2) Abnormal LFTs (liver function tests) Code(s): R94.5 - ABNORMAL RESULTS OF LIVER FUNCTION STUDIES (3) Fatigue Code(s): R53.83 - OTHER FATIGUE Qualifiers: Fatigue type: unspecified Qualified Code(s): R53.83 - Other fatigue (4) Hyperlipidemia associated with type 2 diabetes mellitus Code(s): E11.69 - TYPE 2 DIABETES MELLITUS WITH OTHER SPECIFIED COMPLICATION; E78.5 - HYPERLIPIDEMIA, UNSPECIFIED (5) Hypertension Code(s): I10 - ESSENTIAL (PRIMARY) HYPERTENSION Qualifiers: Hypertension type: essential hypertension Qualified Code(s): I10 - Essential (primary) hypertension (6) Poor appetite Code(s): R63.0 - ANOREXIA (7) Diabetic gastroparesis Code(s): E11.43 - TYPE 2 DIABETES W DIABETIC AUTONOMIC (POLY)NEUROPATHY; K31.84 - GASTROPARESIS (8) Babesiosis Code(s): B60.0 - BABESIOSIS Assessment/Plan MPI December 28, 2016 Mild inferoapical ischemia, LVEF 83% Echo December 28, 2016 Normal LV size and fxn, mild-mod MR, mild TR Holter December 28, 2017: SR with rare supraventricular and ventricular ectopic 1. Dyspepsia and nausea with gastroparesis possibly due to DM 2. Resolving Babesiosis 3. Labile HTN 4. Diastolic dysfunction 5. Type 2 DM 6. Hyperlipidemia 7. History of chest pain syndrome PLAN: 1. Complete empiric antibiotic course 2. Continue Toprol XL, Norvasc, Lipitor, ASA and Valsartan 3. Await EGD and colonoscopy
[2018-05-17] MEDS: ATORVASTATIN CA 10 MG TABLET (FP) PO SCH (22:02)
[2018-05-18] MEDS: SODIUM CHLORIDE 1,000 ML IV SCH ×2 (03:28→18:24)
[2018-05-18] MEDS: metFORMIN HCL 500 MG TABLET (FP) PO SCH (06:22)
[2018-05-18 08:00] LABS: BASO % 0.9 % (0-2.0); EOS % 1.9 % (0-4.5); HEMATOCRIT 35.1 % (32.4-45.2); HEMOGLOBIN 11.9 GM/dL (10.7-15.3); LYMPH % 38.3 % (8-40); MCH 29.3 pg (25.7-33.7); MEAN CELL VOLUME 86.4 fl (80-96); MEAN PLT VOLUME 8.4 fl (7.5-11.1); NEUT % 42.9 % (42.8-82.8); PLATELET COUNT 137 K/MM3 (134-434); RBC 4.06 M/mm3 (3.60-5.2); RDW 18.3 % (11.6-15.6); WHITE BLOOD COUNT 4.6 K/mm3 (4.0-10.0)
[2018-05-18 08:21] LABS: ALBUMIN 2.6 g/dl (3.4-5.0); ANION GAP 10 MMOL/L (8-16); BLOOD UREA NITROGEN 12 mg/dL (7-18); CALCIUM 8.8 mg/dL (8.5-10.1); CHLORIDE 107 mmol/L (98-107); CO2 20 mmol/L (21-32); CREATININE 0.5 mg/dL (0.55-1.3); GLUCOSE,RANDOM 91 mg/dL (74-106); POTASSIUM 4.3 mmol/L (3.5-5.1); SGOT/AST 58 U/L (15-37); SGPT/ALT 67 U/L (13-61); SODIUM 137 mmol/L (136-145)
[2018-05-18 08:22] LABS: ALK PHOS 92 U/L (45-117); BILIRUBIN,TOTAL 0.7 mg/dL (0.2-1); LDH 579 U/L (84-246); TOT PROT 6.6 g/dl (6.4-8.2)
[2018-05-18] MEDS ORDERED: PT OWN MED DRAWER 7, Y5N ONE (08:58)
[2018-05-18] MEDS ORDERED: PEG3350/SOD SULF,BICARB,CL/KCL 4,000 ML SOLN.RECON PO ONE (09:00)
[2018-05-18] MEDS: amLODIPine BESYLATE 5 MG TABLET (FP) PO SCH (09:18)
[2018-05-18] MEDS: CALCIUM (OYSTER SHELL) 500 MG TABLET (FP) PO SCH (09:18)
[2018-05-18] MEDS: VALSARTAN 160 MG TABLET (UD) PO SCH (09:18)
[2018-05-18] MEDS: PANTOPRAZOLE 20 MG TABLET (FP) PO SCH (09:18)
[2018-05-18] MEDS: MEGESTROL ACETATE 400 MG/10 ML UNIT DOSE CUP PO SCH (09:18)
--- NOTE | 2018-05-18 09:54 | PN ---
Progress Note, Physician Chief Complaint: Pt sitting tiredness,,lack of appetitie improved,sinus tachycardia improved anemia improved,s/p transfusion, Ct abdomen and pelvis shows colonic mass Peripheral smear no parasytemia Gi,ID,Oncology,endocrine F/u appreciated electolyte imbalance improved Elevated LFT,low Platelet improving blood cul and urine cul negative stool studies negative awaiting for colonoscopy, - Current Medication List Current Medications: Active Medications Acetaminophen (Tylenol -) 650 mg PO Q6H PRN PRN Reason: FEVER Last Admin: 05/11/18 17:20 Dose: 650 mg Amlodipine Besylate (Norvasc -) 5 mg PO DAILY [facility] Last Admin: 05/18/18 09:18 Dose: 5 mg Atorvastatin Calcium (Lipitor -) 10 mg PO HS [facility]CLUD[facility] Last Admin: 05/17/18 22:02 Dose: 10 mg Bisacodyl (Dulcolax -) 20 mg PO ONCE ONE Stop: 05/18/18 18:01 Calcium Carbonate (Os-Jah 500mg -) 500 mg PO DAILY [facility]CLUDES [facility] Last Admin: 05/18/18 09:18 Dose: 500 mg Guaifenesin (Diabetic Tussin Dm -) 10 ml PO Q6H PRN PRN Reason: COUGH Last Admin: 05/13/18 16:18 Dose: 10 ml Sodium Chloride (Normal Saline -) 1,000 mls @ 75 mls/hr IV ASDIR COUNT INCLUDES THE [facility] Last Admin: 05/18/18 03:28 Dose: 75 mls/hr Megestrol Acetate (Megace Oral Suspension -) 400 mg PO DAILY [facility] Last Admin: 05/18/18 09:18 Dose: 400 mg Metformin HCl (Glucophage -) 500 mg PO 0700 [facility]CLUD[facility] Last Admin: 05/18/18 06:22 Dose: 500 mg Metoprolol Succinate (Toprol Xl -) 50 mg PO HS [facility]CLUD[facility] Last Admin: 05/17/18 22:03 Dose: 50 mg Pantoprazole Sodium (Protonix -) 20 mg PO DAILY [facility] Last Admin: 05/18/18 09:18 Dose: 20 mg Valsartan (Diovan -) 160 mg PO DAILY [facility] Last Admin: 05/18/18 09:18 Dose: 160 mg - Objective Vital Signs: Vital Signs Temperature 97.8 F 05/18/18 06:00 Pulse Rate 89 05/18/18 06:00 Respiratory Rate 20 05/18/18 06:00 Blood Pressure 137/84 05/18/18 06:00 O2 Sat by Pulse Oximetry (%) 98 05/17/18 09:00 Constitutional: Yes: No Distress Eyes: Yes: Conjunctiva Clear HENT: Yes: Atraumatic Neck: Yes: Supple Cardiovascular: Yes: Regular Rate and Rhythm Respiratory: Yes: Regular, CTA Bilaterally Gastrointestinal: Yes: Normal Bowel Sounds, Soft Genitourinary: Yes: WNL Musculoskeletal: Yes: WNL Extremities: Yes: WNL Edema: No Peripheral Pulses WNL: Yes Neurological: Yes: WNL, Alert, Oriented ...Motor Strength: WNL Psychiatric: Yes: WNL, Alert Labs: CBC, BMP 05/18/18 07:00 05/18/18 07:00 INR, PTT INR 1.36 (0.83-1.09) H 05/08/18 08:00 Assessment/Plan colonic mass Babesiosis,no parasytemia in the peripheral blood anemia,hemolytic,s/p transfusion ,hyponatremia improved POOR appetite, and po intake improverd Elevated LFT,low platelet improved Fatigue, generalised weakness PLAN GI F/u Continue Metformin,metoprolol and amlodipine will monitor labs endocrine ,hematology f/u foir colonoscopy tommorow
--- NOTE | 2018-05-18 11:03 | PN ---
Physical Exam: SUBJECTIVE: Patient seen and examined at bed side this morning. Feels better. Walking on her own. SOB and palpitation has improved on exertion. Denies chest pain, cough, abdominal pain, nausea, vomiting, headache, dizziness. Started drinking contrast for colonoscopy tomorrow. No acute overnight events. OBJECTIVE: Vital Signs Period Temp Pulse Resp BP Sys/De Jesus Pulse Ox Last 24 Hr 97.6 F-98.1 F 89-116 18-20 128-140/69-89 GENERAL: The patient is awake, alert, and fully oriented, in no acute distress. HEAD: Normal with no signs of trauma. EYES: PERRL, extraocular movements intact, sclera anicteric, conjunctiva clear. No ptosis. ENT: Ears normal, nares patent, oropharynx clear without exudates, moist mucous membranes. NECK: Trachea midline, full range of motion, supple. LUNGS: Breath sounds equal, clear to auscultation bilaterally, no wheezes, no crackles, no accessory muscle use. HEART: Regular rate and rhythm, S1, S2 without murmur, rub or gallop. ABDOMEN: Soft, nontender, nondistended, normoactive bowel sounds, no guarding, no rebound, no hepatosplenomegaly, no masses. EXTREMITIES: 2+ pulses, warm, well-perfused, no edema. NEUROLOGICAL: Cranial nerves II through XII grossly intact. Normal speech, gait not observed. PSYCH: Normal mood, normal affect. SKIN: Warm, dry, normal turgor, no rashes or lesions noted Laboratory Results - last 24 hr 05/18/18 05/18/18 05/18/18 06:21 07:00 07:00 WBC 4.6 RBC 4.06 Hgb 11.9 Hct 35.1 MCV 86.4 MCH 29.3 MCHC 34.0 RDW 18.3 H Plt Count 137 MPV 8.4 Absolute Neuts (auto) 2.0 Neutrophils % 42.9 Lymphocytes % 38.3 Monocytes % 16.0 H Eosinophils % 1.9 Basophils % 0.9 Nucleated RBC % 0 Retic Count Sodium 137 Potassium 4.3 Chloride 107 Carbon Dioxide 20 L Anion Gap 10 BUN 12 Creatinine 0.5 L Creat Clearance w eGFR > 60 POC Glucometer 99 Random Glucose 91 Calcium 8.8 Total Bilirubin 0.7 AST 58 H ALT 67 H Alkaline Phosphatase 92 LD Total 579 H Total Protein 6.6 Albumin 2.6 L 05/18/18 07:00 WBC RBC Hgb Hct MCV MCH MCHC RDW Plt Count MPV Absolute Neuts (auto) Neutrophils % Lymphocytes % Monocytes % Eosinophils % Basophils % Nucleated RBC % Retic Count Cancelled Sodium Potassium Chloride Carbon Dioxide Anion Gap BUN Creatinine Creat Clearance w eGFR POC Glucometer Random Glucose Calcium Total Bilirubin AST ALT Alkaline Phosphatase LD Total Total Protein Albumin Active Medications Generic Name Dose Route Start Last Admin Trade Name Freq PRN Reason Stop Dose Admin Acetaminophen 650 mg 05/06/18 23:39 05/11/18 17:20 Tylenol - PO 650 mg Q6H PRN Administration FEVER Amlodipine Besylate 5 mg 05/07/18 10:00 05/18/18 09:18 Norvasc - PO 5 mg DAILY KAMILAH Administration Atorvastatin Calcium 10 mg 05/07/18 22:00 05/17/18 22:02 Lipitor - PO 10 mg HS KAMILAH Administration Bisacodyl 20 mg 05/18/18 18:00 Dulcolax - PO 05/18/18 18:01 ONCE ONE Calcium Carbonate 500 mg 05/08/18 10:00 05/18/18 09:18 Os-Jah 500mg - PO 500 mg DAILY KAMILAH Administration Guaifenesin 10 ml 05/11/18 09:42 05/13/18 16:18 Diabetic Tussin Dm - PO 10 ml Q6H PRN Administration COUGH Sodium Chloride 1,000 mls @ 75 mls/hr 05/06/18 23:45 05/18/18 03:28 Normal Saline - IV 75 mls/hr ASDIR KAMILAH Administration Megestrol Acetate 400 mg 05/12/18 20:00 05/18/18 09:18 Megace Oral Suspension - PO 400 mg DAILY KAMILAH Administration Metformin HCl 500 mg 05/07/18 07:00 05/18/18 06:22 Glucophage - PO 500 mg 0700 KAMILAH Administration Metoprolol Succinate 50 mg 05/14/18 22:00 05/17/18 22:03 Toprol Xl - PO 50 mg HS KAMILAH Administration Pantoprazole Sodium 20 mg 05/07/18 15:30 05/18/18 09:18 Protonix - PO 20 mg DAILY KAMILAH Administration Valsartan 160 mg 05/07/18 10:00 05/18/18 09:18 Diovan - PO 160 mg DAILY KAMILAH Administration Patient is a 72 year old female, new patient to [facility], with past medical history of Hyperlipidemia, DM, UTI, Labile HTN; Diastolic dysfunction; History of chest pain syndrome, Diverticulosis was sent by her PCP (Dr. Werner) for evaluation of weakness and low appetite. ASSESSMENT Newly diagnosed colon mass ? Malignant Newly diagnosed Babesiosis UTI Decreased BM- Likely secondary to gastroparesis: currently on Reglan and protonix with symptomatic relief Electrolye imbalance: Hyponatremia, hypokalemia, Hypomagnesemia likely secondary to poor oral intake vs HCTZ use. Thrombocytopenia Normocytic anemia Transaminitis Labile Hypertension Hyperlipidemia DM- A1c done 2 weeks ago was 6.5 as per the patient. Diastolic dysfunction H/o Chest pain syndrome- No active chest pain PLAN: # Thrombocytopenia- Improved Today platelet count is 137. It was most likely because of Babesiosis # Hemolysis-Improving Reticulocyte count pending. LDH is 579 today, it is down trending from 700's. # Newly diagnosed colon mass ? Malignant Found in CT abdomen/Pelvis 05/09/2018: Mass in descending colon. Undergoing Colonoscopy with biopsy on 05/19/2018. Treatment as per the results. SCD's # Normocytic anemia - Improved after blood transfusion. H/H 11.9/31.5 Received PRBC transfusions this admission. Repeat CBC and keep Hct >25 Ferritin high due to reactive, related to liver disease, babesia. normal iron, TIBC is low compatible with chronic illness GI recommendations noted, Colonoscopy/EGD on 05/19/2018 # Reverse A/G ratio-r/o dysproteinemia or possible polyclonal gammopathy secondary to underlying liver disease. # Monocytosis Could be due to liver disease or infectious-viral or malignant. Will observe and consider flow cytometry. Will need to review peripheral smear. Rest as per primary. Plan of care discussed with the patient and her daughter. They verbalized understanding. Case discussed with Dr. Griffith. Dispo: We will continue to follow the patient. Thank you for this consultative opportunity. Visit type - Emergency Visit Emergency Visit: Yes ED Registration Date: 05/06/18 Care time: The patient presented to the Emergency Department on the above date and was hospitalized for further evaluation of their emergent condition. - New Patient This patient is new to me today: No - Critical Care Critical Care patient: No
[2018-05-18 12:20] LABS: RETICULOCYTES 4.96 % (0.5-1.5)
--- NOTE | 2018-05-18 14:32 | PN ---
Progress Note, Physician History of Present Illness: Afebrile, resolving hemolysis, reactive sinus tachycardia noted, EGD and colonoscopy rescheduled 05/19, undergoing colon prep. - Current Medication List Current Medications: Active Medications Acetaminophen (Tylenol -) 650 mg PO Q6H PRN PRN Reason: FEVER Last Admin: 05/11/18 17:20 Dose: 650 mg Amlodipine Besylate (Norvasc -) 5 mg PO DAILY [facility] Last Admin: 05/18/18 09:18 Dose: 5 mg Atorvastatin Calcium (Lipitor -) 10 mg PO HS [facility] Last Admin: 05/17/18 22:02 Dose: 10 mg Bisacodyl (Dulcolax -) 20 mg PO ONCE ONE Stop: 05/18/18 18:01 Calcium Carbonate (Os-Jah 500mg -) 500 mg PO DAILY [facility] Last Admin: 05/18/18 09:18 Dose: 500 mg Guaifenesin (Diabetic Tussin Dm -) 10 ml PO Q6H PRN PRN Reason: COUGH Last Admin: 05/13/18 16:18 Dose: 10 ml Sodium Chloride (Normal Saline -) 1,000 mls @ 75 mls/hr IV ASDIR [facility] Last Admin: 05/18/18 03:28 Dose: 75 mls/hr Megestrol Acetate (Megace Oral Suspension -) 400 mg PO DAILY [facility] Last Admin: 05/18/18 09:18 Dose: 400 mg Metformin HCl (Glucophage -) 500 mg PO 0700 [facility] Last Admin: 05/18/18 06:22 Dose: 500 mg Metoprolol Succinate (Toprol Xl -) 50 mg PO [facility] Last Admin: 05/17/18 22:03 Dose: 50 mg Pantoprazole Sodium (Protonix -) 20 mg PO DAILY [facility] Last Admin: 05/18/18 09:18 Dose: 20 mg Valsartan (Diovan -) 160 mg PO DAILY [facility] Last Admin: 05/18/18 09:18 Dose: 160 mg - Objective Vital Signs: Vital Signs Temperature 97.7 F 05/18/18 10:00 Pulse Rate 89 05/18/18 10:00 Respiratory Rate 18 05/18/18 10:00 Blood Pressure 153/83 05/18/18 10:00 O2 Sat by Pulse Oximetry (%) 99 05/18/18 09:00 Constitutional: Yes: No Distress, Calm, Thin Neck: Yes: Supple Cardiovascular: Yes: Regular Rate and Rhythm Respiratory: Yes: Regular, CTA Bilaterally Gastrointestinal: Yes: Normal Bowel Sounds, Soft Edema: No Labs: CBC, BMP 05/18/18 07:00 05/18/18 07:00 INR, PTT INR 1.36 (0.83-1.09) H 05/08/18 08:00 Problem List - Problems (1) Diastolic dysfunction Code(s): I51.9 - HEART DISEASE, UNSPECIFIED (2) Abnormal LFTs (liver function tests) Code(s): R94.5 - ABNORMAL RESULTS OF LIVER FUNCTION STUDIES (3) Fatigue Code(s): R53.83 - OTHER FATIGUE Qualifiers: Fatigue type: unspecified Qualified Code(s): R53.83 - Other fatigue (4) Hyperlipidemia associated with type 2 diabetes mellitus Code(s): E11.69 - TYPE 2 DIABETES MELLITUS WITH OTHER SPECIFIED COMPLICATION; E78.5 - HYPERLIPIDEMIA, UNSPECIFIED (5) Hypertension Code(s): I10 - ESSENTIAL (PRIMARY) HYPERTENSION Qualifiers: Hypertension type: essential hypertension Qualified Code(s): I10 - Essential (primary) hypertension (6) Poor appetite Code(s): R63.0 - ANOREXIA (7) Diabetic gastroparesis Code(s): E11.43 - TYPE 2 DIABETES W DIABETIC AUTONOMIC (POLY)NEUROPATHY; K31.84 - GASTROPARESIS (8) Babesiosis Code(s): B60.0 - BABESIOSIS Assessment/Plan MPI December 28, 2016 Mild inferoapical ischemia, LVEF 83% Echo December 28, 2016 Normal LV size and fxn, mild-mod MR, mild TR Holter December 28, 2017: SR with rare supraventricular and ventricular ectopic 1. Dyspepsia and nausea with gastroparesis possibly due to DM 2. Resolved Babesiosis 3. Labile HTN 4. Diastolic dysfunction 5. Type 2 DM 6. Hyperlipidemia 7. History of chest pain syndrome 8. R/o colonic mass PLAN: 1. Completed empiric antibiotic course 2. Continue Toprol XL 50 qd, Norvasc 5 qd, Lipitor 10 qhs, and Valsartan 160 qd , ASA held pre-procedure 3. Await EGD and colonoscopy tomorrow
[2018-05-18] MEDS ORDERED: BISACODYL 5 MG TABLET.DR (FP) PO ONE (18:00)
[2018-05-18] MEDS ORDERED: DEXTROSE 5%-0.45% SALINE 1,000 ML IV SCH (20:15)
[2018-05-18] MEDS: ATORVASTATIN CA 10 MG TABLET (FP) PO SCH (21:33)
[2018-05-19] MEDS: metFORMIN HCL 500 MG TABLET (FP) PO SCH (07:03)
--- NOTE | 2018-05-19 09:10 | PN ---
Progress Note (short form) - Note Progress Note: GI Procedures NOte: Please see EGD and colonoscopy reports. No colon cancer found. No ulcers. Diet advanced. No GI objections to discharge. Problem List - Problems (1) Abnormal abdominal CT scan Code(s): R93.5 - ABN FINDINGS ON DX IMAGING OF ABD REGIONS, INC RETROPERITON (2) Babesiosis Code(s): B60.0 - BABESIOSIS (3) Abnormal LFTs (liver function tests) Code(s): R94.5 - ABNORMAL RESULTS OF LIVER FUNCTION STUDIES (4) Abdominal pain Code(s): R10.9 - UNSPECIFIED ABDOMINAL PAIN (5) Diverticula of colon Code(s): K57.30 - DVRTCLOS OF LG INT W/O PERFORATION OR ABSCESS W/O BLEEDING (6) Hypertension Code(s): I10 - ESSENTIAL (PRIMARY) HYPERTENSION Qualifiers: Hypertension type: essential hypertension Qualified Code(s): I10 - Essential (primary) hypertension (7) Hyperlipidemia associated with type 2 diabetes mellitus Code(s): E11.69 - TYPE 2 DIABETES MELLITUS WITH OTHER SPECIFIED COMPLICATION; E78.5 - HYPERLIPIDEMIA, UNSPECIFIED (8) Nausea Code(s): R11.0 - NAUSEA (9) Poor appetite Code(s): R63.0 - ANOREXIA (10) Diabetes 1.5, managed as type 2 Code(s): E10.9 - TYPE 1 DIABETES MELLITUS WITHOUT COMPLICATIONS
--- NOTE | 2018-05-19 09:28 | PN ---
Progress Note, Physician Chief Complaint: S/p colonoscopy and EGD Findings noted,caecal polyp,and hemmorohoids and diverticulosis and gastritis - Current Medication List Current Medications: Active Medications Acetaminophen (Tylenol -) 650 mg PO Q6H PRN PRN Reason: FEVER Last Admin: 05/11/18 17:20 Dose: 650 mg Amlodipine Besylate (Norvasc -) 5 mg PO DAILY [facility] Last Admin: 05/18/18 09:18 Dose: 5 mg Atorvastatin Calcium (Lipitor -) 10 mg PO HS [facility] Last Admin: 05/18/18 21:33 Dose: 10 mg Calcium Carbonate (Os-Jah 500mg -) 500 mg PO DAILY [facility] Last Admin: 05/18/18 09:18 Dose: 500 mg Guaifenesin (Diabetic Tussin Dm -) 10 ml PO Q6H PRN PRN Reason: COUGH Last Admin: 05/13/18 16:18 Dose: 10 ml Dextrose/Sodium Chloride (D5-1/2ns -) 1,000 mls @ 75 mls/hr IV ASDIR [facility] Stop: 05/19/18 09:45 Last Admin: 05/18/18 21:33 Dose: 75 mls/hr Sodium Chloride (Normal Saline -) 1,000 mls @ 75 mls/hr IV [facility] Megestrol Acetate (Megace Oral Suspension -) 400 mg PO DAILY [facility] Last Admin: 05/18/18 09:18 Dose: 400 mg Metformin HCl (Glucophage -) 500 mg PO 0700 [facility] Last Admin: 05/19/18 07:03 Dose: Not Given Metoprolol Succinate (Toprol Xl -) 50 mg PO [facility] Last Admin: 05/18/18 21:33 Dose: 50 mg Pantoprazole Sodium (Protonix -) 20 mg PO DAILY [facility] Last Admin: 05/18/18 09:18 Dose: 20 mg Valsartan (Diovan -) 160 mg PO DAILY [facility] Last Admin: 05/18/18 09:18 Dose: 160 mg - Objective Vital Signs: Vital Signs Temperature 97.7 F 05/19/18 08:40 Pulse Rate 72 05/19/18 08:55 Respiratory Rate 18 05/19/18 08:55 Blood Pressure 154/77 05/19/18 08:55 O2 Sat by Pulse Oximetry (%) 100 05/19/18 08:55 Constitutional: Yes: No Distress Eyes: Yes: Conjunctiva Clear HENT: Yes: Atraumatic Neck: Yes: Supple Cardiovascular: Yes: Regular Rate and Rhythm Respiratory: Yes: Regular Gastrointestinal: Yes: Normal Bowel Sounds, Soft Musculoskeletal: Yes: WNL Extremities: Yes: WNL Edema: No Peripheral Pulses WNL: Yes Neurological: Yes: WNL, Alert ...Motor Strength: WNL Psychiatric: Yes: WNL Labs: CBC, BMP 05/18/18 07:00 05/18/18 07:00 INR, PTT INR 1.36 (0.83-1.09) H 05/08/18 08:00 Assessment/Plan s/p colonoscopy and EGD caecal polyp,diverticulosis,hemmorhoids Babesiosis,no parasytemia in the peripheral blood anemia,hemolytic,s/p transfusion gastritis PLAN GI F/u Continue Metformin,metoprolol and amlodipine will monitor labs, will f/u gi rec
[2018-05-19] MEDS ORDERED: PT OWN MED DRAWER 7, Y5N ONE (10:19)
[2018-05-19] MEDS ORDERED: SODIUM CHLORIDE 1,000 ML IV SCH (10:45)
[2018-05-19] MEDS: MEGESTROL ACETATE 400 MG/10 ML UNIT DOSE CUP PO SCH (10:57)
[2018-05-19] MEDS: amLODIPine BESYLATE 5 MG TABLET (FP) PO SCH (10:57)
[2018-05-19] MEDS: PANTOPRAZOLE 20 MG TABLET (FP) PO SCH (10:57)
[2018-05-19] MEDS: CALCIUM (OYSTER SHELL) 500 MG TABLET (FP) PO SCH (10:57)
[2018-05-19] MEDS: VALSARTAN 160 MG TABLET (UD) PO SCH (10:57)
--- NOTE | 2018-05-19 13:00 | PN ---
Progress Note, Physician History of Present Illness: s/p colonoscopy and EGD, findings noted, cecal polyp post polypectomy, hemorrhoids and diverticulosis and mild gastritis, hiatal hernia - Current Medication List Current Medications: Active Medications Acetaminophen (Tylenol -) 650 mg PO Q6H PRN PRN Reason: FEVER Last Admin: 05/11/18 17:20 Dose: 650 mg Amlodipine Besylate (Norvasc -) 5 mg PO DAILY [facility] Last Admin: 05/19/18 10:57 Dose: 5 mg Atorvastatin Calcium (Lipitor -) 10 mg PO HS [facility] Last Admin: 05/18/18 21:33 Dose: 10 mg Calcium Carbonate (Os-Jah 500mg -) 500 mg PO DAILY [facility] Last Admin: 05/19/18 10:57 Dose: 500 mg Guaifenesin (Diabetic Tussin Dm -) 10 ml PO Q6H PRN PRN Reason: COUGH Last Admin: 05/13/18 16:18 Dose: 10 ml Megestrol Acetate (Megace Oral Suspension -) 400 mg PO DAILY [facility] Last Admin: 05/19/18 10:57 Dose: 400 mg Metformin HCl (Glucophage -) 500 mg PO 0700 [facility] Last Admin: 05/19/18 07:03 Dose: Not Given Metoprolol Succinate (Toprol Xl -) 50 mg PO HS [facility] Last Admin: 05/18/18 21:33 Dose: 50 mg Pantoprazole Sodium (Protonix -) 20 mg PO DAILY [facility] Last Admin: 05/19/18 10:57 Dose: 20 mg Valsartan (Diovan -) 160 mg PO DAILY [facility] Last Admin: 05/19/18 10:57 Dose: 160 mg - Objective Vital Signs: Vital Signs Temperature 98.9 F 05/19/18 10:59 Pulse Rate 102 H 05/19/18 10:59 Respiratory Rate 20 05/19/18 10:59 Blood Pressure 147/86 05/19/18 10:59 O2 Sat by Pulse Oximetry (%) 100 05/19/18 09:31 Constitutional: Yes: No Distress, Calm, Thin Neck: Yes: Supple Cardiovascular: Yes: Regular Rate and Rhythm Respiratory: Yes: Regular, CTA Bilaterally Gastrointestinal: Yes: Soft, Hypoactive Bowel Sounds Edema: No Labs: CBC, BMP 05/18/18 07:00 05/18/18 07:00 INR, PTT INR 1.36 (0.83-1.09) H 05/08/18 08:00 Problem List - Problems (1) Diastolic dysfunction Code(s): I51.9 - HEART DISEASE, UNSPECIFIED (2) Abnormal LFTs (liver function tests) Code(s): R94.5 - ABNORMAL RESULTS OF LIVER FUNCTION STUDIES (3) Fatigue Code(s): R53.83 - OTHER FATIGUE Qualifiers: Fatigue type: unspecified Qualified Code(s): R53.83 - Other fatigue (4) Hyperlipidemia associated with type 2 diabetes mellitus Code(s): E11.69 - TYPE 2 DIABETES MELLITUS WITH OTHER SPECIFIED COMPLICATION; E78.5 - HYPERLIPIDEMIA, UNSPECIFIED (5) Hypertension Code(s): I10 - ESSENTIAL (PRIMARY) HYPERTENSION Qualifiers: Hypertension type: essential hypertension Qualified Code(s): I10 - Essential (primary) hypertension (6) Poor appetite Code(s): R63.0 - ANOREXIA (7) Diabetic gastroparesis Code(s): E11.43 - TYPE 2 DIABETES W DIABETIC AUTONOMIC (POLY)NEUROPATHY; K31.84 - GASTROPARESIS (8) Babesiosis Code(s): B60.0 - BABESIOSIS Assessment/Plan MPI December 28, 2016 Mild inferoapical ischemia, LVEF 83% Echo December 28, 2016 Normal LV size and fxn, mild-mod MR, mild TR Holter December 28, 2017: SR with rare supraventricular and ventricular ectopic 1. Dyspepsia and nausea with gastroparesis possibly due to DM 2. Resolved Babesiosis 3. Labile HTN 4. Diastolic dysfunction 5. Type 2 DM 6. Hyperlipidemia 7. History of chest pain syndrome 8. R/o colonic mass PLAN: 1. Completed empiric antibiotic course 2. Continue Toprol XL 50 qd, Norvasc 5 qd, Lipitor 10 qhs, and Valsartan 160 qd , resume ASA 81 qd 10 days post-procedure, f/u pathology, high-fiber diet 3. D/c planning
--- NOTE | 2018-05-19 21:13 | PN ---
Progress Note (short form) - Note Progress Note: Patient seen and examined Ambulating in the hallway Improving slowly Last Vital Signs Temp Pulse Resp BP Pulse Ox 97.7 F 114 H 20 136/70 97 05/19/18 18:00 05/19/18 18:00 05/19/18 21:00 05/19/18 18:00 05/19/18 21:00 Cor: RSR, No murmurs, No gallops Lungs: Clear to P&A Abd: Soft, Normal bowel sounds, No organomegaly Ext:No significant edema Labs/Meds reviewed A/P 72 y/o patient with Babesiosis hemolysis Thrombocytopenia s/p transfusion fever curve improved hemolysis/thrombocytopenia improved colonoscopy--no pathology + UPEP/-SIFE--? reactive check SFLCA needs f/u outpatietn regarding this mild tachycardia-- check TSH/fT4
[2018-05-19] MEDS: ATORVASTATIN CA 10 MG TABLET (FP) PO SCH (21:56)
[2018-05-20] MEDS: metFORMIN HCL 500 MG TABLET (FP) PO SCH (06:43)
[2018-05-20 07:03] LABS: BASO % 0.7 % (0-2.0); EOS % 1.4 % (0-4.5); HEMATOCRIT 32.9 % (32.4-45.2); HEMOGLOBIN 11.1 GM/dL (10.7-15.3); LYMPH % 33.8 % (8-40); MCH 29.4 pg (25.7-33.7); MCHC 33.7 g/dl (32.0-36.0); MEAN CELL VOLUME 87.4 fl (80-96); MEAN PLT VOLUME 8.2 fl (7.5-11.1); MONO % 15.5 % (3.8-10.2); NEUT % 48.6 % (42.8-82.8); PLATELET COUNT 154 K/MM3 (134-434); RBC 3.77 M/mm3 (3.60-5.2); RDW 19.1 % (11.6-15.6); WHITE BLOOD COUNT 5.7 K/mm3 (4.0-10.0)
[2018-05-20 07:34] LABS: ALBUMIN 2.4 g/dl (3.4-5.0); ALK PHOS 71 U/L (45-117); ANION GAP 7 MMOL/L (8-16); BILIRUBIN,TOTAL 0.5 mg/dL (0.2-1); BLOOD UREA NITROGEN 18 mg/dL (7-18); CALCIUM 8.1 mg/dL (8.5-10.1); CHLORIDE 105 mmol/L (98-107); CO2 23 mmol/L (21-32); CREATININE 0.6 mg/dL (0.55-1.3); GLUCOSE,RANDOM 96 mg/dL (74-106); POTASSIUM 3.9 mmol/L (3.5-5.1); SGOT/AST 56 U/L (15-37); SGPT/ALT 67 U/L (13-61); SODIUM 135 mmol/L (136-145); TOT PROT 6.2 g/dl (6.4-8.2)
--- NOTE | 2018-05-20 07:36 | PN ---
Progress Note, Physician Chief Complaint: S/p colonoscopy and EGD Findings noted,caecal polyp,and hemmorohoids and diverticulosis and atrophic gastritis pt tolerating diet tachycardia improved,afebrile d/c planing - Current Medication List Current Medications: Active Medications Acetaminophen (Tylenol -) 650 mg PO Q6H PRN PRN Reason: FEVER Last Admin: 05/11/18 17:20 Dose: 650 mg Amlodipine Besylate (Norvasc -) 5 mg PO DAILY [facility] Last Admin: 05/19/18 10:57 Dose: 5 mg Atorvastatin Calcium (Lipitor -) 10 mg PO HS [facility] Last Admin: 05/19/18 21:56 Dose: 10 mg Calcium Carbonate (Os-Jah 500mg -) 500 mg PO DAILY [facility] Last Admin: 05/19/18 10:57 Dose: 500 mg Guaifenesin (Diabetic Tussin Dm -) 10 ml PO Q6H PRN PRN Reason: COUGH Last Admin: 05/13/18 16:18 Dose: 10 ml Megestrol Acetate (Megace Oral Suspension -) 400 mg PO DAILY [facility] Last Admin: 05/19/18 10:57 Dose: 400 mg Metformin HCl (Glucophage -) 500 mg PO 0700 [facility] Last Admin: 05/20/18 06:43 Dose: 500 mg Metoprolol Succinate (Toprol Xl -) [address] [facility] Last Admin: 05/19/18 21:56 Dose: 50 mg Pantoprazole Sodium (Protonix -) 20 mg PO DAILY [facility] Last Admin: 05/19/18 10:57 Dose: 20 mg Valsartan (Diovan -) 160 mg PO DAILY [facility] Last Admin: 05/19/18 10:57 Dose: 160 mg - Objective Vital Signs: Vital Signs Temperature 98.5 F 05/20/18 05:21 Pulse Rate 89 05/20/18 05:21 Respiratory Rate 20 05/20/18 05:21 Blood Pressure 114/66 05/20/18 05:21 O2 Sat by Pulse Oximetry (%) 97 05/19/18 21:00 Constitutional: Yes: No Distress Eyes: Yes: Conjunctiva Clear HENT: Yes: WNL, Atraumatic Neck: Yes: WNL, Supple Cardiovascular: Yes: Regular Rate and Rhythm Respiratory: Yes: Regular, CTA Bilaterally Gastrointestinal: Yes: Normal Bowel Sounds, Soft Musculoskeletal: Yes: WNL Extremities: Yes: WNL Edema: No Peripheral Pulses WNL: Yes Neurological: Yes: WNL, Alert, Oriented ...Motor Strength: WNL Psychiatric: Yes: WNL Labs: CBC, BMP 05/20/18 06:30 INR, PTT INR 1.36 (0.83-1.09) H 05/08/18 08:00 Assessment/Plan s/p colonoscopy and EGD caecal polyp,diverticulosis,hemmorhoids,atrophic gastritis Babesiosis,no paracytemia in the peripheral blood anemia,hemolytic,s/p transfusion PLAN GI F/u as outpatient Continue Metformin,metoprolol and amlodipine hematology f/u as outpatient d/c home
[2018-05-20] MEDS ORDERED: PT OWN MED DRAWER 7, Y5N ONE (09:49)
[2018-05-20] MEDS: VALSARTAN 160 MG TABLET (UD) PO SCH (09:50)
[2018-05-20] MEDS: amLODIPine BESYLATE 5 MG TABLET (FP) PO SCH (09:50)
[2018-05-20] MEDS: CALCIUM (OYSTER SHELL) 500 MG TABLET (FP) PO SCH (09:50)
[2018-05-20] MEDS: PANTOPRAZOLE 20 MG TABLET (FP) PO SCH (09:50)
[2018-05-20] MEDS: MEGESTROL ACETATE 400 MG/10 ML UNIT DOSE CUP PO SCH (09:50)
[2018-05-20 10:34] VITALS: BP 125/75; PULSE 97; TEMP 98.4
--- NOTE | 2018-05-22 15:54 | PATH ---
Surgical Pathology Report Patient Name: SEBASTIÁN THOMAS [facility]. Rec. #: [id number] /Age/Gender: 1945 (Age: 72) / F Account: [id number] Location: [address] [place] [address]/[facility] Taken: 05/19/2018 Received: 05/19/2018 Reported: 05/22/2018 Physicians: Moira Maher Specimen(s) Received A: BX 2ND PORTION DUODENUM AND BULB B: BX ANTRUM C: BX CECUM POLYP Clinical History Anemia, nausea, abdominal pain, rule out cancer Abnormal CAT scan, rule out tumor Postoperative diagnosis: Atrophic gastritis with, cecal polyp, hemorrhoid, diverticulosis Final Diagnosis A. SECOND PORTION DUODENUM AND BULB, BIOPSY: DUODENAL MUCOSA WITH NO SIGNIFICANT PATHOLOGIC FINDINGS. NO HISTOLOGIC EVIDENCE OF CELIAC DISEASE. B. ANTRUM, BIOPSY: GASTRIC MUCOSA SHOWING CHRONIC GASTRITIS WITH FOCAL GLANDULAR ATROPHY. NEGATIVE FOR INTESTINAL METAPLASIA. IMMUNOSTAIN IS NEGATIVE FOR H. PYLORI ORGANISMS. C. CECUM POLYP, POLYPECTOMY: TUBULAR ADENOMA. Electronically Signed Casimiro Reyes M.D. Gross Description A. Received in formalin, labeled "biopsy second portion of duodenum and bulb" are 3 messer, irregular portions of soft tissue averaging 0.3 cm. in greatest dimension. The specimens are submitted in toto in one cassette. B. Received in formalin, labeled "biopsy antrum" are 4 messer, irregular portions of soft tissue ranging from 0.2-0.4 cm. in greatest dimension. The specimens are submitted in toto in one cassette. C. Received in formalin, labeled "biopsy polyp cecal" is a messer, irregular portion of soft tissue measuring 0.4 cm. in greatest dimension. The specimen is submitted in toto in one cassette. DL/05/19/2018 saudi/05/19/2018
== END 2018-05-20 11:55 | disposition home or self-care (01) | DRG 868 ==
LOC: JER 14:59 → JERFT 14:59 → JERBED 18:40 → J5S 23:07
PROVIDERS: ADMIT Family Medicine; ATTEND Family Medicine
PROC: 30233N1 Transfusion of Nonautologous Red Blood Cells into Peripheral Vein, Percutaneous Approach (ICD-10-PCS; 2018-05-12)
PROC: 0DD68ZX Extraction of Stomach, Via Natural or Artificial Opening Endoscopic, Diagnostic (ICD-10-PCS; 2018-05-19)
PROC: 0DD58ZX Extraction of Esophagus, Via Natural or Artificial Opening Endoscopic, Diagnostic (ICD-10-PCS; 2018-05-19)
PROC: 0DBH8ZX Excision of Cecum, Via Natural or Artificial Opening Endoscopic, Diagnostic (ICD-10-PCS; 2018-05-19)
PROC: 0DD98ZX Extraction of Duodenum, Via Natural or Artificial Opening Endoscopic, Diagnostic (ICD-10-PCS; principal; 2018-05-19 12:00)
DX: B60.0 Babesiosis (principal); E87.1 Hypo-osmolality and hyponatremia; D69.6 Thrombocytopenia, unspecified; R00.0 Tachycardia, unspecified; D12.0 Benign neoplasm of cecum; K57.90 Diverticulosis of intestine, part unspecified, without perforation or abscess without bleeding; K44.9 Diaphragmatic hernia without obstruction or gangrene; K29.40 Chronic atrophic gastritis without bleeding; I10 Essential (primary) hypertension; E11.43 Type 2 diabetes mellitus with diabetic autonomic (poly)neuropathy; K31.84 Gastroparesis; E78.5 Hyperlipidemia, unspecified; R00.1 Bradycardia, unspecified; D64.9 Anemia, unspecified; R74.0 Nonspecific elevation of levels of transaminase and lactic acid dehydrogenase [LDH]; R63.0 Anorexia; E87.6 Hypokalemia; E83.42 Hypomagnesemia; R07.89 Other chest pain; K64.8 Other hemorrhoids; R11.0 Nausea
CPT/HCPCS: 36415; 36430; 71046-TC-FY; 71260-TC; 74177-TC; 76705-TC; 80048; 80053; 80076; 81003; 81015; 82105; 82150; 82172; 82247; 82272; 82378; 82465; 82728; 82784; 82930; 82947; 82962; 82977; 83010; 83516; 83540; 83550; 83615; 83690; 83735; 83883; 84155; 84156; 84165; 84166; 84450; 84460; 84478; 85025; 85027; 85044; 85610; 86038; 86140; 86301; 86308; 86334; 86618; 86664; 86665; 86704; 86706; 86708; 86803; 86850; 86880; 86900; 86901; 86922; 87040; 87045; 87046; 87070; 87086; 87177; 87205; 87207; 87209; 87324; 87340; 87430; 87449; 87804; 88305-TC; 93005; 93010; 93306-TC; 94010; 97116-GP; 97161-GP; 99281-25; J7030; P9038; P9058

== ENCOUNTER 2019-04-24 05:01 | Day surgery (SDC) | payer OTHER, BC ==
[2019-04-17 14:18] VITALS: BMI 23.4
[2019-04-24] MEDS ORDERED: CEFAZOLIN 2 GM/D5W 2 GM/50 ML ML IVPB ONE (07:19)
[2019-04-24] MEDS ORDERED: fentaNYL CITRATE 250 MCG/5 ML VIAL ONE (07:45)
[2019-04-24] MEDS ORDERED: MIDAZOLAM HCL 2 MG/2 ML SINGLE DOSE VIAL ONE (07:45)
[2019-04-24] MEDS ORDERED: SUCCINYLCHOLINE CHLORIDE 200 MG/10 ML SYRINGE ONE (07:46)
[2019-04-24] MEDS ORDERED: PROPOFOL 20 ML ONE (07:46)
[2019-04-24] MEDS ORDERED: ROCURONIUM BROMIDE 50 MG/5 ML SYRINGE ONE (07:46)
[2019-04-24] MEDS ORDERED: ePHEDrine SULFATE 50 MG/1 ML AMPULE ONE (07:47)
[2019-04-24] MEDS ORDERED: ceFAZolin SODIUM 1 GM VIAL ONE (08:03)
--- NOTE | 2019-04-24 08:37 | HP ---
History & Physical Update - History History: No Change - Physical Physical: No Change - Assessment Assessment: No Change - Plan Plan: No Change (no changes since visit with Dr Alvarez on 04/20/19)
[2019-04-24] MEDS ORDERED: ceFAZolin SODIUM 1 GM VIAL IVPB ONE (09:20)
[2019-04-24] MEDS ORDERED: FLUORESCEIN SODIUM 10% 500 MG/5 ML VIAL IJ ONE (09:45)
[2019-04-24] MEDS ORDERED: GLYCOPYRROLATE 0.2 MG/1 ML VIAL ONE ×3 (09:56)
[2019-04-24] MEDS ORDERED: NEOSTIGMINE METHYLSULFATE 0.5 MG/ML - 10 ML MDV ONE (09:56)
[2019-04-24] MEDS ORDERED: PROMETHAZINE HCL 25 MG/1 ML VIAL IVPUSH PRN (10:34)
[2019-04-24] MEDS: ACETAMINOPHEN 1000 MG/100 ML VIAL (NON FORMULARY) IVPB PRN ×3 (10:38→21:49)
[2019-04-24] MEDS ORDERED: ACETAMINOPHEN INJECTION 100 ML IVPB ONE (10:38)
[2019-04-24] MEDS ORDERED: LACTATED RINGERS SOLUTION 1,000 ML IV SCH (10:45)
--- NOTE | 2019-04-24 10:59 | OP ---
DATE OF OPERATION: DATE OF DICTATION: 04/24/2019 PREOPERATIVE DIAGNOSES: Complete uterovaginal prolapse, stress urinary, perineocele. POSTOPERATIVE DIAGNOSES: Complete uterovaginal prolapse, stress urinary, perineocele. PROCEDURE PERFORMED: Vaginal hysterectomy with enterocele repair, anterior and posterior colporrhaphy, sling, and perineoplasty. PRIMARY SURGEON: Ramos Alvarez MD SYNCHRONOUS MOTOR ASSEMBLER: HENNA Mi DESCRIPTION OF PROCEDURE: After adequate anesthesia, patient was prepped and draped in the dorsal lithotomy position. Pre-evaluation under anesthesia revealed no pelvic mass to be palpable. A dilute solution of Pitressin injected throughout entire vaginal epithelium and circumferential incision made on the cervix, and the anterior and posterior cul-de-sacs were entered without any difficulty. The uterosacral cardinal ligament complex followed by the uterine artery followed by the ovarian ligament clamped, cut, suture ligated. Uterus was removed. The vaginal wall was suspended to the uterosacral cardinal ligament complex bilaterally. The enterocele cyst sac was closed off at its neck using 0 Vicryl suture in a circumferential stitch and the vaginal cuff closed using 2-0 Vicryl suture. Vertical incision was made over the anterior vagina. Perivesical fascia was dissected away, plicated onto itself using 0 Vicryl suture in circumferential stitch x3 layers. The mid urethral area was dissected up to the space of Retzius. Transvaginal tape and sling were then inserted in the proper anatomical location. Cystoscopy was performed. There were no foreign bodies in the bladder and noted that the fluorescein dye was emanating from both ureteral orifices after dilute solution of fluorescein was given intravenously. Minimal tension was then applied on the sling arm. Sling sleeves were removed. The sling arm were cut off at the skin. Skin closed using Dermabond. Anterior vaginal wall closed using 2-0 Vicryl continuous fashion. Vertical incision was made over the back wall of vagina. Perirectal fascia dissected away, plicated onto itself using 2-0 Vicryl in continuous fashion. The superficial muscle reapproximated in layers using 0 Vicryl suture interrupted fashion thus rebuilding the perineal body. Rectal examination negative for any foreign bodies. The introitus was accommodating the surgeon's 2 fingers easily. A Church catheter was reinserted, and the patient was transferred to recovery room in stable condition. All instrument and sponge counts were given to us as correct. Moira HAIDER/[id number]
[2019-04-24] MEDS ORDERED: SODIUM CHLORIDE 1,000 ML IV SCH (11:00)
[2019-04-24] MEDS ORDERED: ACETAMINOPHEN WITH CODEINE 300MG/30MG TABLET PO PRN (11:01)
[2019-04-24] MEDS ORDERED: ACETAMINOPHEN 325 MG TABLET (FP) PO PRN (11:02)
[2019-04-24] MEDS ORDERED: KETOROLAC TROMETHAMINE 15 MG/ML VIAL IVPUSH SCH (11:15)
--- NOTE | 2019-04-24 11:19 | OP ---
Operative Note - Note: Operative Date: 04/24/19 Pre-Operative Diagnosis: Complete uterovaginal prolapse, stress urinary incontinence, perineocele Operation: Vaginal hysterectomy with enterocele repair, anterior and posterior colporrhaphy, sling and perioneoplasty Post-Operative Diagnosis: Same as Pre-op Surgeon: Ramos Alvarez Pumper Gager: Humaira Rodriguez Anesthesiologist/DIRECTOR NETWORK DEVELOPMENT: Devin Cano Anesthesia: General Specimens Removed: uterus Estimated Blood Loss (mls): 75 Fluid Volume Replaced (mls): 800 Operative Report Dictated: Yes
--- NOTE | 2019-04-24 11:20 | SURG ---
Surgery Glass Fitter Note Glass Fitter: Humaira Rodriguez PA-C Date of Service: 04/24/19 Diagnosis: Complete uterovaginal prolapse, stress urinary incontinence, perineocele Procedure: Vaginal hysterectomy with enterocele repair, anterior and posterior colporrhaphy , sling and perioneoplasty I was present for the entirety of the operative procedure. For further detail, please refer to operative report. Visit type - Case Type Case Type: Scheduled - Emergency Emergency Visit: No - New patient This patient is new to me today: Yes Date on this admission: 04/24/19
[2019-04-24] MEDS: CEFAZOLIN 1 GM/D5W 1 GM/50 ML BAG IVPB SCH (16:39)
[2019-04-24] MEDS: INSULIN SLIDING SCALE (NOVOLOG) 1 VIAL SQ SCH (16:55)
[2019-04-24] MEDS: KETOROLAC TROMETHAMINE 30 MG/1 ML VIAL IVPUSH SCH (18:51)
[2019-04-24] MEDS ORDERED: metoPROLOL SUCCINATE 25 MG TAB.SR.24H (FP) PO SCH (22:00)
[2019-04-24] MEDS ORDERED: ATORVASTATIN CA 10 MG TABLET (FP) PO SCH (22:00)
[2019-04-25] MEDS: KETOROLAC TROMETHAMINE 30 MG/1 ML VIAL IVPUSH SCH ×3 (00:35→07:49)
[2019-04-25] MEDS: CEFAZOLIN 1 GM/D5W 1 GM/50 ML BAG IVPB SCH (01:19)
[2019-04-25] MEDS: INSULIN SLIDING SCALE (NOVOLOG) 1 VIAL SQ SCH ×2 (06:43→12:00)
[2019-04-25] MEDS ORDERED: metFORMIN HCL 500 MG TABLET (FP) PO SCH (07:00)
--- NOTE | 2019-04-25 08:12 | PN ---
Progress Note (short form) - Note Progress Note: Pt seen and examined. Reports she is doing well this AM. Had some pain last night which was relieved with IV Toradol. Was oob to the restroom. Solomon in place. Tolerating PO. Denies n/v/d. Vital Signs Temp 98.1 F 04/25/19 06:00 Pulse 55 L 04/25/19 06:00 Resp 20 04/25/19 06:00 BP 122/50 L 04/25/19 06:00 Pulse Ox 96 04/25/19 06:23 Intake & Output 04/24/19 04/24/19 04/25/19 11:59 23:59 11:59 Intake Total 1450 600 600 Output Total 575 2600 1000 Balance 875 -2000 -400 Intake: IV 1450 400 600 Normal Saline - 1,000 ml 400 600 @ 100 mls/hr IV ASDIR KAMILAH Rx#:[id number] IVPB 100 Oral 100 Output: Urine 500 2600 1000 Solomon 1200 1000 Estimated Blood Loss 75 Other: Voiding Method Indwelling Catheter Gen: awake, alert, nad Resp: Unlabored on RA Abdo: soft, minimally ttp in lower abdomen, appropriate to status : Solomon with approx 100ml light yellow urine in bag, solomon removed without issue, scant vaginal bleeding on pad. A/P: 73 y/o F w/ PMHx htn, hld, NIDDM, complete uterovaginal prolapse, stress urinary incontinence, perineocele, now POD 1, s/p Vaginal hysterectomy with enterocele repair, anterior and posterior colporrhaphy, sling and perioneoplasty. afebrile, vss -Plan for d/c this afternoon -Solomon removed at 730, TOV w/ pvr prior to d/c -Will f/u early afternoon d.w attending Dr Alvarez
[2019-04-25] MEDS ORDERED: DOCUSATE SODIUM 100 MG CAPSULE (FP) PO PRN (08:14)
[2019-04-25] MEDS ORDERED: ASPIRIN 81 MG CHEWABLE TABLETS PO SCH (10:00)
[2019-04-25] MEDS ORDERED: CALCIUM (OYSTER SHELL) 500 MG TABLET (FP) PO SCH (10:00)
[2019-04-25] MEDS ORDERED: CHOLECALCIFEROL (VIT D3) 1,000 UNIT (25 MCG) TABLET PO SCH (10:00)
[2019-04-25] MEDS ORDERED: VALSARTAN 160 MG TABLET (UD) PO SCH (10:00)
[2019-04-25] MEDS ORDERED: amLODIPine BESYLATE 5 MG TABLET (FP) PO SCH (10:00)
[2019-04-25] MEDS ORDERED: KETOROLAC TROMETHAMINE 15 MG/ML VIAL IVPB SCH (14:00)
--- NOTE | 2019-04-25 14:00 | PN ---
Progress Note (short form) - Note Progress Note: Contacted RN at noon, pt reporting small void in toilet (flushed). Bladder scan 384ml. Pt not uncomfortable. Ambulating all morning and hydrating. Likely has local edema from surgery. Ice pack to vaginal area ordered. Pt with no further urine output. D/w attending, Dr Alvarez. Plan to re-insert solomon catheter and send pt home with catheter. RN, pt and updated. Pt initially refused, however after discussion between and Dr Alvarez pt agreeable. Leg bag teaching ordered. Pt to f/u in the office tomorrow, 04/26 at 2pm. Pt and agree with plan.
[2019-04-25 15:56] VITALS: BP 112/64; PULSE 63; TEMP 98.8
--- NOTE | 2019-05-03 14:29 | PATH ---
Surgical Pathology Report Patient Name: SEBASTIÁN THOMAS [facility]. Rec. #: [id number] /Age/Gender: 1945 (Age: 73) / F Account: [id number] Location: AMBULATORY SURG Taken: 04/24/2019 Received: 04/24/2019 Reported: 05/03/2019 Physicians: Ramos Alvarez M.D. Specimen(s) Received A: UTERUS AND CERVIX B: VAGINAL MUCOSA Clinical History Prolapse Final Diagnosis A. UTERUS AND CERVIX, TRANSVAGINAL HYSTERECTOMY: UTERUS (WEIGHT: 36 G) SHOWING ATROPHIC ENDOMETRIUM AND SMALL CALCIFIED SUBSEROSAL LEIOMYOMA. CERVIX WITH NO PATHOLOGIC FINDINGS. B. VAGINAL MUCOSA, EXCISION: SQUAMOUS (VAGINAL) MUCOSA WITH NO PATHOLOGIC FINDINGS. Electronically Signed Humaira Vargas M.D. Gross Description A. received in formalin, labeled "uterus and cervix" is a 36 g uterus with attached cervix measuring 6.4 cm from uterine dome the cervical os, 4.2 cm from cornu to cornu, and 1.4 cm anteroposteriorly. The serosa appears smooth with a bosselated nodule noted at the superior aspect. The ectocervix is light messer, smooth and glistening. Opening reveals a 3 x 0.3 cm endometrial cavity lined by a light messer mucoid endometrium. The endocervical canal measures 2 x 0.3 cm and shows light messer, mucoid endocervical mucosa. The myometrium shows a 1.2 x 0.8 x 0.7 cm calcified nodule corresponding to the bosselated area at the serosal aspect. Slot Editor sections are submitted in four cassettes as follows: 1, 2-endomyometrium; 3-calcified nodule in myometrium (following decalcification); 4-ectoendocervix. B. Received in formalin, labeled "vaginal mucosa" are three portions of messer mucosal tissue ranging from 2.2-5 cm in greatest dimension. Slot Editor sections are submitted in one cassette. AE/04/27/2019 ebram04/27/2019
== END 2019-04-25 16:00 | disposition home or self-care (01) ==
LOC: JASUSAT 05:01 → EDSTATUS 13:00 → J3W 14:19 → JASUSAT 04-25 16:00
PROVIDERS: ATTEND Obstetrics & Gynecology Female Pelvic Medicine and Reconstructive Surgery
PROC: 0TSD0ZZ Reposition Urethra, Open Approach (ICD-10-PCS; 2019-04-24)
PROC: 0WBN0ZZ Excision of Female Perineum, Open Approach (ICD-10-PCS; 2019-04-24)
PROC: 0UT97ZZ Resection of Uterus, Via Natural or Artificial Opening (ICD-10-PCS; principal; 2019-04-24 08:30)
PROC: 0UQG7ZZ Repair Vagina, Via Natural or Artificial Opening (ICD-10-PCS; 2019-04-24 08:30)
DX: N81.3 Complete uterovaginal prolapse (principal); N39.3 Stress incontinence (female) (male); N81.81 Perineocele
CPT/HCPCS: 57265; 57288; 58270; C1781; 82962; 86850; 86900; 86901; 88302-TC; 88305-TC; 94010; 94760; J0131; J7030